=== PATIENT | female | born 1940 | race Caucasian/White ===

== ENCOUNTER → 2016-11-17 | Outpatient (CLI) | payer OTHER ==
[~2016-11-17] MED LIST: ALBU0.08 INH; ALBU18002 INH; ALBU1AER9 INH; AMLO-110 PO; ASPI81TA28 PO; ATV5X PO; BUSP-8 PO; CHOL20009 PO; CHOL4POW4 PO; CLON1TAB3 PO; CRG625 PO; CYAN10005 PO; DICY20TA10 PO; FLUO10CA48 PO; FLUT0.15 NAE; LDDP5 TD; LEVO1TAB33 PO; MAGN500T4 PO; MISCCAP80 PO; MOXI400T2 PO; ONDA4TAB46 PO; PANC6000 PO; PANT40TA PO; SPRIN/30 INH; SUCR1TAB PO; TIOTCAP INH; TRAM-10 PO; VITA400C15 PO; VITA400C3 PO; ZTHM250 PO
== END | disposition home or self-care (01) ==
LOC: C.RDSM 12:30
PROVIDERS: ATTEND Orthopaedic Surgery Sports Medicine
DX: R52 Pain, unspecified (principal)

== ENCOUNTER 2016-11-20 04:10 | Inpatient (IN) | payer OTHER ==
[~2016-11-20] VITALS: Ht 160 cm; Wt 40.3 kg
[2016-11-20] VITALS (10 sets, daily range): BP systolic 127–212; BP diastolic 65–101; PULSE 71–92; TEMP 36.5–36.6; O2SAT 91–98; Ht 160 cm; Wt 40.3 kg
[~2016-11-20 04:10] MED LIST changes: -ALBU18002 INH; -AMLO-110 PO; -ATV5X PO; -CHOL4POW4 PO; -LDDP5 TD; -SPRIN/30 INH; -SUCR1TAB PO; -VITA400C3 PO; -ZTHM250 PO
[2016-11-20] MEDS ORDERED: MoRPHine SULFATE 4 MG/ML 1 ML CARP\\VIAL IV STA (04:30)
[2016-11-20] MEDS ORDERED: ONDANSETRON INJ 2 MG/ML 2 ML VIAL IV STA (04:30)
--- NOTE | 2016-11-20 04:31 | EMERGENCY ROOM VISIT NOTE ---
History Report prepared by Ben: Latha Mosher Under the Supervision of: Dr. Mili Francisco D.O. First contact with patient: 04:14 Chief Complaint: RESPIRATORY PROBLEMS Stated Complaint: BREATHING DIFFICULTY History of Present Illness The patient is a 76 year old female who presents to the Emergency Room with complaints of worsening trouble breathing beginning this morning. The patient states that on Sunday she fell and bruised her ribs. She notes that the pain from the ribs is causing her to experience trouble breathing and shortness of breath. The patient went to bed early last night due to increased fatigue and woke up this morning with shortness of breath. She also notes she is experiencing a cough. The patient is on 1 liter of oxygen at home. Source of History: patient Onset: this morning Position: other (global) Quality: other (trouble breathing) Timing: worsening Associated Symptoms: + SOB, + chest pain (ribs), + cough Review of Systems See HPI for pertinent positives & negatives. A total of 10 systems reviewed and were otherwise negative. 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 Family History FH: cancer (pancreatic) FH: heart disease FH: lung disease (coal worker's pneumoconiosis) Stroke Social History Smoking Status: Former Smoker Alcohol Use: none Drug Use: none Marital Status: Housing Status: lives alone Occupation Status: retired Current/Historical Medications Scheduled Aspirin (Aspirin Ec), 81 MG PO DAILY Buspirone Hcl (Buspirone Hcl), 10 MG PO TID Carvedilol (Carvedilol), 1.5 TAB PO BID Cholecalciferol (Vitamin D), 1 TAB PO QAM Clonazepam (Klonopin), 1.5 MG PO HS Cyanocobalamin (Vitamin B-12), 1,000 MCG PO QAM Dicyclomine Hcl (Dicyclomine Hcl), 20 MG PO TID Fluoxetine (Prozac), 10 MG PO QAM Magnesium Oxide (Mg Supplement (Magnesium), 500 MG PO DAILY Pancrelipase (Lipase-Protease- (Creon), 2 CAP PO TIDM Pantoprazole Sodium (Protonix), 40 MG PO QAM Probiotic Product (Probiotic), 1 CAP PO TIDM Sucralfate (Sucralfate), 1 GM PO BID Tiotropium [place] (Spiriva Handihaler), 1 CAP INH QAM Tocopheryl Acet,Dl-Alpha (Vitamin E), 400 INTER.UNIT PO QAM Scheduled PRN Albuterol (Proair Hfa), 1-2 PUFFS INH Q4H PRN for Shortness of Breath Albuterol Soln (Proventil 0.083% 2.5MG/3ML), 2.5 MG INH Q4-6HRS PRN for Wheezing Fluticasone Propionate (Nasal) (Flonase Allergy Relief), 2 SPRAYS LAUREN BID PRN for NEEDED Ondansetron Hcl (Zofran), 4 MG PO QID PRN for Nausea Tramadol (Ultram), 50-100 MG PO Q6 hrs PRN for Pain Allergies Coded Allergies: Penicillins (Verified Allergy, Intermediate, RASH/NAUSEA, 10/29/16) Dexamethasone (Verified Allergy, Unknown, UNSURE OF REACTION, 10/29/16) Iodinated Diagnostic Agents (Verified Allergy, Unknown, SHAKY AND FEELS LIKE WILL PASS OUT, 10/29/16) Clindamycin (Verified Adverse Reaction, Mild, GI SYMPTOMS, 10/29/16) STOMACH CRAMPS-FLARE OF IBS Diazepam (Verified Adverse Reaction, Mild, FEELS MANIC WHEN TAKES, ) Erythromycin (Verified Adverse Reaction, Mild, GI SYMPTOMS, 10/29/16) Oxycodone (Verified Adverse Reaction, Mild, HALLUCINATE, 10/29/16) Tetracyclines (Verified Adverse Reaction, Mild, N/V, 10/29/16) Diphenhydramine (Verified Adverse Reaction, Unknown, HALLUCINATION, ) Lactose Intolerance (Verified Adverse Reaction, Unknown, IBS, 10/29/16) Levofloxacin (Verified Adverse Reaction, Unknown, HAS BLEEDING FROM IV SITE, PO OK, NOT IV, 10/29/16) PT STATED THAT SHE'S OKAY TO TAKE LEVAQUIN ORAL BUT NOT IV Sulfamethoxazole w/Trimethoprim (Unverified Adverse Reaction, Unknown, N/V , 10/29/16) Physical Exam Vital Signs Date Time Temp Pulse Resp B/P Pulse Ox O2 Delivery O2 Flow Rate FiO2 11/20/16 06:25 86 17 143/63 94 Nasal Cannula 2.0 11/20/16 04:27 95 Nasal Cannula 2.0 11/20/16 04:27 95 Nasal Cannula 2.0 11/20/16 04:26 89 Room Air 11/20/16 04:19 83 11/20/16 04:18 91 Room Air 11/20/16 04:18 36.8 83 20 230/123 89 Room Air 11/20/16 04:18 89 Room Air Physical Exam General: Appears cachectic and short of breath with communication. HEENT: Head - normocephalic and atraumatic Pupils are equal, round, and reactive to light. Extraocular eye muscles are intact, and sclera are anicteric. Nose - moist nasal mucosa without discharge. Mouth - moist buccal mucosa. Oropharynx is nonerythematous and there is no tonsillar exudate or edema noted. Neck: Supple; no JVD, nuchal rigidity, cervical lymphadenopathy, or auscultated bruits. Heart: Regular rate and rhythm. There is a normal S1 and S2 with no murmurs, clicks, or gallops appreciated. Lungs: Diminished breath sounds in all lung wilson. No wheezing. Chest: Reproducible with palpation to left lateral chest wall. Abdomen: Soft, completely nontender, nondistended, with good bowel sounds. There are no palpable pulsatile masses or hepatosplenomegaly. There is no guarding, rigidity, or rebound noted. Extremities: No evidence of cyanosis, clubbing, or edema. There are easily palpable peripheral pulses. Skin: warm and dry with good turgor and no rashes. Medical Decision & Procedures ER Provider Diagnostic Interpretation: X-ray results as stated below per interpretation by me and the radiologist: Chest: No left sided pulmonary consolidation, overlapping rib fracture of the 8th rib. CHEST 2 VIEWS ROUTINE CLINICAL HISTORY: Shortness of breath. Sided chest pain. COPD. COMPARISON STUDY: 10/29/2016 FINDINGS: The heart is normal in size. The patient is hyperinflated. There is underlying pulmonary emphysema. There is no focal pulmonary consolidation. There is a 23 mm left apical pneumothorax. No significant pleural effusions are visualized. There is no failure.[ IMPRESSION: 1. 23 mm left apical pneumothorax 2. Emphysema Electronically signed by: Jatinder Cage M.D. 11/20/2016 6:34 AM Dictated Date/Time: 11/20/2016 6:33 AM Laboratory Results 11/20/16 04:45 Red Blood Count 3.90, Mean Corpuscular Volume 87.7, Mean Corpuscular Hemoglobin 30.0, Mean Corpuscular Hemoglobin Concent 34.2, Mean Platelet Volume 8.6, Neutrophils (%) (Auto) 75.1, Lymphocytes (%) (Auto) 12.0, Monocytes (%) (Auto) 8.8, Eosinophils (%) (Auto) 3.7, Basophils (%) (Auto) 0.2, Neutrophils # (Auto) 6.22, Lymphocytes # (Auto) 1.00, Monocytes # (Auto) 0.73, Eosinophils # (Auto) 0.31, Basophils # (Auto) 0.02 11/20/16 04:45 Test 11/20/16 04:45 11/20/16 05:00 White Blood Count 8.30 K/uL (4.8-10.8) Red Blood Count 3.90 M/uL (4.2-5.4) Hemoglobin 11.7 g/dL (12.0-16.0) Hematocrit 34.2 % (37-47) Mean Corpuscular Volume 87.7 fL (80-100) Mean Corpuscular Hemoglobin 30.0 pg (25-34) Mean Corpuscular Hemoglobin Concent 34.2 g/dl (32-36) Platelet Count 237 K/uL (130-400) Mean Platelet Volume 8.6 fL (7.4-10.4) Neutrophils (%) (Auto) 75.1 % Lymphocytes (%) (Auto) 12.0 % Monocytes (%) (Auto) 8.8 % Eosinophils (%) (Auto) 3.7 % Basophils (%) (Auto) 0.2 % Neutrophils # (Auto) 6.22 K/uL (1.4-6.5) Lymphocytes # (Auto) 1.00 K/uL (1.2-3.4) Monocytes # (Auto) 0.73 K/uL (0.11-0.59) Eosinophils # (Auto) 0.31 K/uL (0-0.5) Basophils # (Auto) 0.02 K/uL (0-0.2) RDW Standard Deviation 43.0 fL (36.4-46.3) RDW Coefficient of Variation 13.4 % (11.5-14.5) Immature Granulocyte % (Auto) 0.2 % Immature Granulocyte # (Auto) 0.02 K/uL (0.00-0.02) Anion Gap 6.0 mmol/L (3-11) Est Creatinine Clear Calc Drug Dose 44.8 ml/min Estimated GFR () 98.7 Estimated GFR (Non- 85.2 BUN/Creatinine Ratio 15.8 (10-20) Calcium Level 9.1 mg/dl (8.5-10.1) Total Creatine Kinase 68 U/L (26-192) Creatine Kinase MB 1.0 ng/ml (0.5-3.6) Creatine Kinase MB Ratio 1.5 (0-3.0) Troponin I < 0.015 ng/ml (0-0.045) Pro-B-Type Natriuretic Peptide 527 pg/ml (0-900) Urine Color YELLOW Urine Appearance CLEAR (CLEAR) Urine pH 7.0 (4.5-7.5) Urine Specific [place] 1.005 (1.000-1.030) Urine Protein NEG (NEG) Urine Glucose (UA) NEG (NEG) Urine Ketones NEG (NEG) Urine Occult Blood TRACE (NEG) Urine Nitrite NEG (NEG) Urine Bilirubin NEG (NEG) Urine Urobilinogen NEG (NEG) Urine Leukocyte Esterase NEG (NEG) Urine WBC (Auto) 0 /hpf (0-5) Urine RBC (Auto) 0-4 /hpf (0-4) Urine Hyaline Casts (Auto) 0 /lpf (0-5) Urine Epithelial Cells (Auto) 0-5 /lpf (0-5) Urine Bacteria (Auto) NEG (NEG) Laboratory results per my review. Medications Administered Medications (Trade) Dose Ordered Sig/Ar Route Start Time Stop Time Status Last Admin Dose Admin Ondansetron HCl (Zofran Inj) 2 mg NOW STAT IV 11/20/16 04:30 11/20/16 04:31 DC 11/20/16 04:47 2 MG Morphine Sulfate (MoRPHine SULFATE INJ) 2 mg STK-MED ONCE .ROUTE 11/20/16 04:43 11/20/16 04:44 DC 11/20/16 04:47 2 MG Procedure Zofran Inj 2 mg IV Morphine Sulfate Inj 2 mg IV. ECG Indication: SOB/dyspnea Rate (beats per minute): 78 Rhythm: normal sinus Findings: PAC, ST depression (Inferior) ED Course 0417: Past medical records reviewed. The patient was evaluated in room A3. A complete history and physical exam was performed. Laboratory studies were drawn as above. A twelve-lead EKG was obtained as described above. The patient had a chest x-ray as described above. 0430: Zofran Inj 2 mg IV, Morphine Sulfate Inj 2 mg IV. 0657: I reevaluated the patient. She is feeling much better after the morphine. 719. Discussed the patient's case with Dr. Karla WAGONER. The patient will be evaluated for further management. Medical Decision The patient is a 76 year old female who presents to the ED with trouble breathing. Differential diagnosis includes COPD exacerbation, pneumonia, bronchitis, hypoxia, chest wall contusion. Lab findings include white blood cell count 8.3, hemoglobin 11.7, normal renal function, normal BNP and troponin , urine analysis shows no sign of infection. This is a 76-year-old female patient with COPD who presents to the emergency department with shortness of breath secondary to trauma to the left side of her ribs. The patient suffered a fall earlier this week. X-ray shows that she has an overlapping rib fracture and a small pneumothorax on the left. Her saturations remain stable. She is comfortable at this time. However, with her history of significant COPD, I felt she would require further inpatient hospital care to ensure that the pneumothorax is not enlarge. I discussed the case with the [facility] Hospitalist and they will evaluate for further medical management. Consults Time Called: 717 Consulting Physician: Dr. Karla WAGONER Returned Call: [phone] Discussed the patient's case with Dr. Karla WAGONER. The patient will be evaluated for further management. Impression Primary Impression: Pneumothorax Additional Impression: Left rib fracture Scribe Attestation The scribe's documentation has been prepared under my direction and personally reviewed by me in its entirety. I confirm that the note above accurately reflects all work, treatment, procedures, and medical decision making performed by me. Departure Information Dispostion Being Evaluated By Hospitalist Problem Qualifiers
[2016-11-20] MEDS ORDERED: MoRPHine SULFATE 2 MG/ML CARP ONE (04:43)
[2016-11-20 04:58] LABS: BASO % 0.2 %; BASO ABS # 0.02 K/uL (0-0.2); COMPLETE YES; EOS % 3.7 %; HEMATOCRIT 34.2 % (37-47); IG% 0.2 %; MEAN CELL VOLUME 87.7 fL (80-100); MEAN CORPUSCULAR HGB CONC 34.2 g/dl (32-36); MEAN PLATELET VOLUME 8.6 fL (7.4-10.4); MONO % 8.8 %; NEUT % 75.1 %; PLATELET COUNT 237 K/uL (130-400)
[2016-11-20 05:19] LABS: BLOOD UREA NITROGEN 11 mg/dl (7-18); BUN/CREATININE RATIO 15.8 (10-20); CALCIUM 9.1 mg/dl (8.5-10.1); CARBON DIOXIDE 37 mmol/L (21-32); CHLORIDE 94 mmol/L (98-107); CREATININE 0.69 mg/dl (0.60-1.20); GLUCOSE 107 mg/dl (70-99); POTASSIUM 4.1 mmol/L (3.5-5.1); SODIUM 137 mmol/L (136-145)
[2016-11-20 05:24] LABS: CKMB/CK RATIO 1.5 (0-3.0)
[2016-11-20 05:27] LABS: URINE APPEARANCE CLEAR (CLEAR); URINE BILIRUBIN NEG (NEG); URINE COLOR YELLOW; URINE EPITHELIAL CELL AUTO 0-5 /lpf (0-5); URINE NITRITE NEG (NEG); URINE SPECIFIC GRAVITY 1.005 (1.000-1.030); UROBILINOGEN NEG (NEG)
[2016-11-20 05:28] LABS: MANUAL MICROSCOPIC REQUIRED? NO; REVIEW REQ? NO
[2016-11-20] MEDS ORDERED: SUCR1TAB PO ×2 (05:40)
--- NOTE | 2016-11-20 06:36 | DIAGNOSTIC IMAGING REPORT ---
ADDENDUM Addendum: Also evident is a fracture of the left 10th posterolateral rib. Electronically signed by: Jatinder Cage M.D. 11/20/2016 6:48 AM Dictated Date/Time: 11/20/2016 6:47 AM ORIGINAL REPORT CHEST 2 VIEWS ROUTINE CLINICAL HISTORY: Shortness of breath. Sided chest pain. COPD. COMPARISON STUDY: 10/29/2016 FINDINGS: The heart is normal in size. The patient is hyperinflated. There is underlying pulmonary emphysema. There is no focal pulmonary consolidation. There is a 23 mm left apical pneumothorax. No significant pleural effusions are visualized. There is no failure.[ IMPRESSION: 1. 23 mm left apical pneumothorax 2. Emphysema Electronically signed by: Jatinder Cage M.D. 11/20/2016 6:34 AM Dictated Date/Time: 11/20/2016 6:33 AM
[2016-11-20] MEDS ORDERED: ACETAMINOPHEN 325 MG TAB PO STA (07:34)
[2016-11-20] MEDS ORDERED: MAGNESIUM HYDROXIDE SUSP 30 ML UDC PO PRN (08:15)
[2016-11-20] MEDS ORDERED: LORAZEPAM 2 MG/ML 1 ML VIAL IV PRN (08:15)
[2016-11-20] MEDS ORDERED: HEPARIN SOD 5000 UNIT/0.5 ML CARP SQ SCH (08:15)
[2016-11-20] MEDS ORDERED: KETOROLAC TROMETHAMINE 15 MG/ML VIAL IM PRN (08:15)
[2016-11-20] MEDS ORDERED: ACETAMINOPHEN 325 MG TAB PO PRN (08:15)
[2016-11-20] MEDS ORDERED: ALUMINUM/MAGNESIUM/SIMETH (MAALOX MAX) 30 ML UDC PO PRN (08:15)
[2016-11-20] MEDS ORDERED: POLYETHYLENE (MIRALAX) 17 GM PACK PO PRN (08:15)
[2016-11-20] MEDS ORDERED: DICYCLOMINE HCL 20 MG TAB PO SCH (09:00)
--- NOTE | 2016-11-20 09:12 | History and Physical ---
History & Physical Date & Time of Service: Nov 20, 2016 at 08:38 Chief Complaint: Breathing Difficulty Primary Care Physician: Ryan Lucia M.D. History of Present Illness Source: patient Patient is a pleasant 76 y/o male, with PMHx of COPD, HTN, anxiety, depression, and IBS, who presented to the ED because of elevated BP and left-sided rib pain. On 11/16, patient was in her bedroom slippers and slipped on her carpet. She fell on her left shoulder/side. On Sunday, 11/17, patient was pulling a plug out of the wall and flew backwards, landing on her left side again. She went to see Dr. Du on Sunday, who told her she had bruised ribs. On Sunday, 11/20, patient took her blood pressure at home which read >200/100. Due to her increased left-sided pain and blood pressure reading, she came to the ED. Patient was admitted on 09/20 due to COPD exacerbation and elevated BP. At that time, her BP was felt to be anxiety related, and no changes in her medications were made. Currently, pain in mild with 4 mg IV Morphine given in the ED. She states she feels extremely anxious, like she is going to have a panic attack, with everything that is going on. She currently lives at home alone, with the help of her neighbor. Her neighbor has been less helpful lately. She states she has not been eating adequately because she has no food in the home. Patient denies any fever, chills, sweats, lightheadedness, dizziness, vision changes, CP , palpitations, edema, wheezing, cough, abdominal pain, nausea, vomiting, diarrhea, urinary symptoms, melena, numbness/tingling, active bleeding, or new skin discoloration/changes. Past Medical/Surgical History 1. Benign hypertension 2. COPD (chronic obstructive pulmonary disease) 3. Anxiety 4. Depression 5. IBS 6. Carcinoma of breast Surgical hx: 1. Hysterectomy 2. Mastectomy 3. Cholecystectomy Family History FH: cancer (pancreatic) FH: heart disease FH: lung disease (coal worker's pneumoconiosis) Stroke Social History Smoking Status: Former Smoker Drug Use: none Marital Status: Housing status: lives alone Occupational Status: retired Immunizations History of Influenza Vaccine: Yes Influenza Vaccine Date: Oct 13, 2013 History of Tetanus Vaccine?: Yes Tetanus Immunization Date: Nov 03, 2008 History of Pneumococcal: Yes Pneumococcal Date: Jul 04, 2013 History of Hepatitis B Vaccine: No Multi-Drug Resistant Organisms History of MDRO: No Allergies Coded Allergies: Penicillins (Verified Allergy, Intermediate, RASH/NAUSEA, 11/26/16) Dexamethasone (Verified Allergy, Unknown, UNSURE OF REACTION, 11/26/16) Iodinated Diagnostic Agents (Verified Allergy, Unknown, SHAKY AND FEELS LIKE WILL PASS OUT, 11/26/16) Morphine (Verified Adverse Reaction, Severe, vomitting, 11/26/16) Clindamycin (Verified Adverse Reaction, Mild, GI SYMPTOMS, 11/26/16) STOMACH CRAMPS-FLARE OF IBS Diazepam (Verified Adverse Reaction, Mild, FEELS MANIC WHEN TAKES, 11/26/16 ) Erythromycin (Verified Adverse Reaction, Mild, GI SYMPTOMS, 11/26/16) Oxycodone (Verified Adverse Reaction, Mild, HALLUCINATE, 11/26/16) Tetracyclines (Verified Adverse Reaction, Mild, N/V, 11/26/16) Diphenhydramine (Verified Adverse Reaction, Unknown, HALLUCINATION, ) Lactose Intolerance (Verified Adverse Reaction, Unknown, IBS, 11/26/16) Levofloxacin (Verified Adverse Reaction, Unknown, HAS BLEEDING FROM IV SITE, PO OK, NOT IV, 11/26/16) PT STATED THAT SHE'S OKAY TO TAKE LEVAQUIN ORAL BUT NOT IV Sulfamethoxazole w/Trimethoprim (Unverified Adverse Reaction, Unknown, N/V , 11/26/16) Home Medications Scheduled Aspirin (Aspirin Ec), 81 MG PO DAILY Buspirone Hcl (Buspirone Hcl), 10 MG PO TID Carvedilol (Carvedilol), 1.5 TAB PO BID Cholecalciferol (Vitamin D), 1 TAB PO QAM Clonazepam (Klonopin), 1.5 MG PO HS Cyanocobalamin (Vitamin B-12), 1,000 MCG PO QAM Dicyclomine Hcl (Dicyclomine Hcl), 20 MG PO TID Fluoxetine (Prozac), 10 MG PO QAM Lidocaine (Lidocaine), 1 PATCH TD QAM Magnesium Oxide (Mg Supplement (Magnesium), 500 MG PO DAILY Pancrelipase (Lipase-Protease- (Creon), 2 CAP PO TIDM Pantoprazole Sodium (Protonix), 40 MG PO QAM Probiotic Product (Probiotic), 1 CAP PO TIDM Sucralfate (Sucralfate), 1 GM PO BID Tiotropium [place] (Spiriva Handihaler), 1 CAP INH QAM Tocopheryl Acet,Dl-Alpha (Vitamin E), 400 INTER.UNIT PO QAM Scheduled PRN Albuterol (Proair Hfa), 1-2 PUFFS INH Q4H PRN for Shortness of Breath Albuterol Soln (Proventil 0.083% 2.5MG/3ML), 2.5 MG INH Q4-6HRS PRN for Wheezing Fluticasone Propionate (Nasal) (Flonase Allergy Relief), 2 SPRAYS LAUREN BID PRN for NEEDED Ondansetron Hcl (Zofran), 4 MG PO QID PRN for Nausea Tramadol (Ultram), 50-100 MG PO Q6 hrs PRN for Pain Physical Exam Vital Signs Date Time Temp Pulse Resp B/P Pulse Ox O2 Delivery O2 Flow Rate FiO2 11/20/16 08:17 84 11/20/16 06:25 86 17 143/63 94 Nasal Cannula 2.0 11/20/16 04:27 95 Nasal Cannula 2.0 11/20/16 04:27 95 Nasal Cannula 2.0 11/20/16 04:26 89 Room Air 11/20/16 04:19 83 11/20/16 04:18 91 Room Air 11/20/16 04:18 36.8 83 20 230/123 89 Room Air 11/20/16 04:18 89 Room Air General Appearance: no apparent distress, + thin Head: normocephalic, atraumatic Eyes: PERRL ENT: hearing grossly normal Neck: supple Respiratory/Chest: no respiratory distress, no accessory muscle use, + decreased breath sounds Cardiovascular: regular rate, rhythm, no edema, normal peripheral pulses Abdomen/GI: normal bowel sounds, non tender, soft Back: normal inspection Extremities/Musculoskelatal: no calf tenderness, no pedal edema Neurologic/Psych: alert, oriented x 3, + pertinent finding (anxious ) Skin: normal color, warm/dry, no rash Diagnostics Laboratory Results Results Past 24 Hours Test 11/20/16 04:45 11/20/16 05:00 Range/Units White Blood Count 8.30 4.8-10.8 K/uL Red Blood Count 3.90 4.2-5.4 M/uL Hemoglobin 11.7 12.0-16.0 g/dL Hematocrit 34.2 37-47 % Mean Corpuscular Volume 87.7 80-100 fL Mean Corpuscular Hemoglobin 30.0 25-34 pg Mean Corpuscular Hemoglobin Concent 34.2 32-36 g/dl Platelet Count 237 130-400 K/uL Mean Platelet Volume 8.6 7.4-10.4 fL Neutrophils (%) (Auto) 75.1 % Lymphocytes (%) (Auto) 12.0 % Monocytes (%) (Auto) 8.8 % Eosinophils (%) (Auto) 3.7 % Basophils (%) (Auto) 0.2 % Neutrophils # (Auto) 6.22 1.4-6.5 K/uL Lymphocytes # (Auto) 1.00 1.2-3.4 K/uL Monocytes # (Auto) 0.73 0.11-0.59 K/uL Eosinophils # (Auto) 0.31 0-0.5 K/uL Basophils # (Auto) 0.02 0-0.2 K/uL RDW Standard Deviation 43.0 36.4-46.3 fL RDW Coefficient of Variation 13.4 11.5-14.5 % Immature Granulocyte % (Auto) 0.2 % Immature Granulocyte # (Auto) 0.02 0.00-0.02 K/uL Sodium Level 137 136-145 mmol/L Potassium Level 4.1 3.5-5.1 mmol/L Chloride Level 94 98-107 mmol/L Carbon Dioxide Level 37 21-32 mmol/L Anion Gap 6.0 3-11 mmol/L Blood Urea Nitrogen 11 7-18 mg/dl Creatinine 0.69 0.60-1.20 mg/dl Est Creatinine Clear Calc Drug Dose 44.8 ml/min Estimated GFR () 98.7 Estimated GFR (Non- 85.2 BUN/Creatinine Ratio 15.8 10-20 Random Glucose 107 70-99 mg/dl Calcium Level 9.1 8.5-10.1 mg/dl Total Creatine Kinase 68 26-192 U/L Creatine Kinase MB 1.0 0.5-3.6 ng/ml Creatine Kinase MB Ratio 1.5 0-3.0 Troponin I < 0.015 0-0.045 ng/ml Pro-B-Type Natriuretic Peptide 527 0-900 pg/ml Urine Color YELLOW Urine Appearance CLEAR CLEAR Urine pH 7.0 4.5-7.5 Urine Specific [place] 1.005 1.000-1.030 Urine Protein NEG NEG Urine Glucose (UA) NEG NEG Urine Ketones NEG NEG Urine Occult Blood TRACE NEG Urine Nitrite NEG NEG Urine Bilirubin NEG NEG Urine Urobilinogen NEG NEG Urine Leukocyte Esterase NEG NEG Urine WBC (Auto) 0 0-5 /hpf Urine RBC (Auto) 0-4 0-4 /hpf Urine Hyaline Casts (Auto) 0 0-5 /lpf Urine Epithelial Cells (Auto) 0-5 0-5 /lpf Urine Bacteria (Auto) NEG NEG Diagnostic Radiology CXR ADDENDUM Addendum: Also evident is a fracture of the left 10th posterolateral rib. Electronically signed by: Jatinder Cage M.D. 11/20/2016 6:48 AM Dictated Date/Time: 11/20/2016 6:47 AM ORIGINAL REPORT CHEST 2 VIEWS ROUTINE CLINICAL HISTORY: Shortness of breath. Sided chest pain. COPD. COMPARISON STUDY: 10/29/2016 FINDINGS: The heart is normal in size. The patient is hyperinflated. There is underlying pulmonary emphysema. There is no focal pulmonary consolidation. There is a 23 mm left apical pneumothorax. No significant pleural effusions are visualized. There is no failure.[ IMPRESSION: 1. 23 mm left apical pneumothorax 2. Emphysema Electronically signed by: Jatinder Cage M.D. 11/20/2016 6:34 AM Dictated Date/Time: 11/20/2016 6:33 AM The status of this report is Signed. Draft = Not yet reviewed or approved by Radiologist. Signed = Reviewed and approved by Radiologist. EKG [place] MAY ID:[id number] 20-NOV-2016 04:34:23 [facility] Sinus rhythm with Premature atrial complexes Possible Left atrial enlargement Septal infarct (cited on or before 29-OCT-2016) Abnormal ECG When compared with ECG of 29-OCT-2016 17:10, Premature atrial complexes are now Present 25mm/s 10mm/mV 150Hz 8.0 SP2 12SL 241 [place]: 9 Referred by: Gumaro Neumann Unconfirmed Vent. rate 78 BPM PA interval 156 ms QRS duration 62 ms QT/QTc 366/417 ms P-R-T axes 79 79 70 1940 (76 yr) Female 32in 1lb Room:3 Loc:15 Family Educator:Rachelle Guevara ind: Impression Assessment and Plan 76 y/o female, with PMHx of COPD, anxiety/depression, HTN, and IBS, who presented to the ED because of elevated BP and left-sided rib pain from a fall on 11/16. Left 10th rib fracture and 22 mm left apical pneumothorax evident on CXR: -Admit med/surg -O2 protocol. At admission, patient was requiring 2L O2- she only wears 1L O2 at night at home -Repeat CXR in 6 hrs -Consult pulmonary, appreciate recommendations -Pain management with IV Toradol 15 mg q6hrs PRN, Tramadol 50 mg PO q6 hrs PRN, Tylenol 650 mg q4 hrs PRN, and Lidoderm patch -Follow PRP COPD: -Ventolin 2 puffs INH -Continue Spiriva 1 cap PO QAM -Follows with Mateo Mcdonnell PA-C HTN: -Continue Carvedilol 9.375 mg PO BID -Hydralazine 10 mg IV PRN for sbp >170 or dbp >100 Anxiety/depression: -Continue Buspirone 10 mg PO TID -Continue Klonopin 1.5 mg PO HS -Continue Prozac 10 mg PO QAM -Ativan 1 mg IV q6 hrs PRN for anxiety Vitamin D deficiency: -Continue Vitamin D supplement -Vitamin D level of 35.0 checked on 07/2016 Anemia: -hgb stable -Continue Vitamin B12 supplement -Follow CBC IBS: -Continue Creon 2 cap PO TID -Continue Protonix 40 mg PO QAM -Continue Probiotic 1 cap PO TID -Continue Sucralfate 1 gm PO BID -Continue Bentyl 20 mg PO TID Hypomagnesemia: -Continue MagOx 500 mg PO daily -Check mag level- patient has not been taking lately because she does not have the medication at home DVT prophylaxis: -Hold on chemical therapy, pending pulmonary consult -PARMINDER and SCDs Deconditioning: -Patient states she lives alone, with the help of her neighbor (who has been less and less of help lately). -Consult social worker health services -Consult PT/OT Code Status: -LEVEL V, DNR Level of Care Med/Surg Resuscitation Status DO NOT RESUSCITATE VTE Prophylaxis VTE Risk Assessment Done? Y/N: Yes Risk Level: Low Given or contraindicated: Usman Ponce, SCD's Note Patient was seen and examined. Case was discussed with Barbara Coates PA-C. I agree with her above note as written. Patient presented with rib pain after a fall a few days prior to admission. Imaging showed a small pneumothorax. On exam, she is very anxious. Lungs are diminished but equal, no respiratory distress. Will monitor serial CXRs. Pulm to be consulted.
[2016-11-20] MEDS ORDERED: IV FLUIDS COMPLETED PRN (09:15)
[2016-11-20] MEDS: ONDANSETRON INJ 2 MG/ML 2 ML VIAL IV PRN (10:51)
[2016-11-20] MEDS: HydrALAZINE HCL 20 MG/ML VIAL IV. PRN ×2 (10:56→17:07)
[2016-11-20] MEDS: LIDODERM (LIDOCAINE) PATCH 5% TD SCH (10:58)
[2016-11-20] MEDS: TRAMADOL HCL 50 MG TAB PO PRN ×2 (10:59→21:25)
[2016-11-20] MEDS: ASPIRIN 81 MG ECTAB PO SCH (11:01)
[2016-11-20] MEDS: TIOTROPIUM BROMIDE 5 PUFF/90 MCG INH INH SCH (11:01)
[2016-11-20] MEDS: SUCRALFATE 1 GM TAB PO SCH ×3 (11:02→21:26)
[2016-11-20] MEDS: MAGNESIUM OXIDE 400 MG TAB PO SCH (11:02)
[2016-11-20] MEDS: CARVEDILOL 6.25 MG TAB PO SCH ×2 (11:03→21:23)
[2016-11-20] MEDS: LACTOBACILLUS ACIDOPHILUS (FLORANEX) TAB PO SCH ×3 (11:03→18:24)
[2016-11-20] MEDS: CYANOCOBALAMIN 500 MCG TAB (VIT B-12) PO SCH (11:09)
[2016-11-20] MEDS: CHOLECALCIFEROL 1000 INTER.UNIT TAB PO SCH (11:14)
[2016-11-20] MEDS: TOCOPHERYL, DL-ALPHA 400 INTER.UNIT CAP PO SCH (11:14)
[2016-11-20] MEDS: PANTOprazole SOD 40 MG TAB PO SCH (11:15)
--- NOTE | 2016-11-20 11:28 | DIAGNOSTIC IMAGING REPORT ---
SINGLE VIEW CHEST CLINICAL HISTORY: Follow-up left apical pneumothorax. COPD. FINDINGS: An AP, portable, upright chest radiograph is compared to study performed earlier the same day 11/20/2016 and correlated with chest CT dated 10/19/2015. The examination is degraded by portable technique and patient rotation. The cardiomediastinal silhouette is normal for projection. There is atherosclerotic calcification of the thoracic aorta. The pulmonary vasculature is noncongested. Enlargement of the central pulmonary arteries is indicative of pulmonary artery hypertension. Advanced emphysema is unchanged. A small left apical pneumothorax is unchanged from earlier today with approximately 2.3 cm of pleural separation. No airspace consolidation is identified typical for pneumonia and there is no large pleural effusion. Extensive chronic interstitial thickening and mild nodularity is unchanged. No right-sided pneumothorax is seen. The skeletal structures are osteopenic. The bony thorax is grossly intact. IMPRESSION: 1. A small left apical pneumothorax has not significantly changed from earlier today. 2. Advanced emphysema. 3. No airspace consolidation or large pleural effusion is identified. Electronically signed by: Fredy Coffman M.D. 11/20/2016 11:26 AM Dictated Date/Time: 11/20/2016 11:23 AM
[2016-11-20] MEDS ORDERED: NURSING VERBAL MED ORDER ONE (11:30)
[2016-11-20] MEDS: DICYCLOMINE HCL 20 MG TAB PO SCH ×2 (12:03→18:23)
[2016-11-20] MEDS: ALBUTEROL HFA 8 GM INHALER INH PRN (13:15)
[2016-11-20] MEDS ORDERED: PROMETHAZINE HCL INJ 12.5 MG in SODIUM CHLORIDE 0.9% 50ML 50 ML IV PRN (14:00)
[2016-11-20] MEDS: FLUOXETINE HCL 10 MG CAP PO SCH (14:26)
--- NOTE | 2016-11-20 14:54 | Pre-Operative Consultation ---
History General Date of Service: Nov 20, 2016. HPI HPI: The patient is a 76 year old female being seen for a stable left pneumothorax of 2cm. She has a PMHx of COPD, HTN, anxiety, depression, and IBS, who presented to the ED because of elevated BP and left-sided rib pain. On 11/16, patient fell on her left shoulder/side. She began to have increased left-sided pain and was admitted on 09/20 due to COPD exacerbation and elevated BP. She currently has mild pain and no SOB Patient denies any fever, chills, sweats, lightheadedness, dizziness, vision changes, CP, palpitations, edema, wheezing, cough, abdominal pain, nausea, vomiting, diarrhea, urinary symptoms, melena, numbness/tingling, active bleeding, or new skin discoloration/changes. An CXR done today and repeated in the afternoon shows a stable 2cm PTX on the left with minimal symptoms at this point. Historian: patient Risk Assessment Daily beta gem use?: No Problem List Medical Problems: (1) Acute bronchiolitis Status: Acute (2) Acute electrocardiogram changes Status: Acute (3) Headache Status: Acute (4) Left rib fracture Status: Acute (5) Pneumothorax Status: Acute (6) Right-sided chest pain Status: Acute (7) UTI (urinary tract infection) Status: Acute Medical & Surgical History Past Medical History: anxiety, cancer - breast, COPD, depression, GERD, hypertension, other (IBS) Past Surgical History: cholecystectomy, hysterectomy, mastectomy Family History Family History: cancer, heart disease, lung disease, other (CVA) Social History Hx Tobacco Use In Past Year?: No Smoking Status: Former Smoker Alcohol: none Drug Use: none Marital status: Housing status: lives alone Occupation status: retired Immunizations Have You Had Influenza Vaccine: Yes Date Of Influenza Vaccine: Oct 13, 2013 Have You Had Tetanus Vaccine: Yes Date Of Tetanus Immunization: Nov 03, 2008 History of Pneumococcal: Yes Date of Pneumococcal Vaccine: Jul 04, 2013 History Hepatitis B Vaccine: No Allergies Allergies: Coded Allergies: Penicillins (Verified Allergy, Intermediate, RASH/NAUSEA, 10/29/16) Dexamethasone (Verified Allergy, Unknown, UNSURE OF REACTION, 10/29/16) Iodinated Diagnostic Agents (Verified Allergy, Unknown, SHAKY AND FEELS LIKE WILL PASS OUT, 10/29/16) Morphine (Verified Adverse Reaction, Severe, vomitting, 11/20/16) Clindamycin (Verified Adverse Reaction, Mild, GI SYMPTOMS, 10/29/16) STOMACH CRAMPS-FLARE OF IBS Diazepam (Verified Adverse Reaction, Mild, FEELS MANIC WHEN TAKES, ) Erythromycin (Verified Adverse Reaction, Mild, GI SYMPTOMS, 10/29/16) Oxycodone (Verified Adverse Reaction, Mild, HALLUCINATE, 10/29/16) Tetracyclines (Verified Adverse Reaction, Mild, N/V, 10/29/16) Diphenhydramine (Verified Adverse Reaction, Unknown, HALLUCINATION, ) Lactose Intolerance (Verified Adverse Reaction, Unknown, IBS, 10/29/16) Levofloxacin (Verified Adverse Reaction, Unknown, HAS BLEEDING FROM IV SITE, PO OK, NOT IV, 10/29/16) PT STATED THAT SHE'S OKAY TO TAKE LEVAQUIN ORAL BUT NOT IV Sulfamethoxazole w/Trimethoprim (Unverified Adverse Reaction, Unknown, N/V , 10/29/16) Medications Current Inpatient Medications Current Inpatient Medications Medications (Trade) Dose Ordered Sig/Ar Route Start Time Stop Time Status Last Admin Dose Admin Acetaminophen (Tylenol Tab) 650 mg Q4H PRN PO 11/20/16 08:15 12/20/16 08:14 Al Hydrox/Mg Hydrox/Simethicone (Maalox Max Susp) 15 ml Q4H PRN PO 11/20/16 08:15 12/20/16 08:14 Magnesium Hydroxide (Milk Of Magnesia Susp) 30 ml Q6H PRN PO 11/20/16 08:15 12/20/16 08:14 Polyethylene (Miralax Powder Packet) 17 gm DAILY PRN PO 11/20/16 08:15 12/20/16 08:14 Ondansetron HCl (Zofran Inj) 4 mg Q6H PRN IV 11/20/16 08:15 12/20/16 08:14 11/20/16 10:51 4 MG Lidocaine (Lidoderm Patch 5%) 1 patch QAM TD 11/20/16 09:00 12/20/16 08:59 11/20/16 10:58 1 PATCH Miscellaneous (Remove Lidoderm Patch) 1 ea DAILY@21 N/A 11/20/16 21:00 12/20/16 20:59 Albuterol (Ventolin Hfa Inhaler) 2 puffs Q4H PRN INH 11/20/16 08:15 12/20/16 08:14 11/20/16 13:15 2 PUFFS Albuterol Sulfate (Ventolin 0.083% 2.5MG/3ML Neb) 2.5 mg Q4H PRN INH 11/20/16 08:15 12/20/16 08:14 Aspirin (Ecotrin Tab) 81 mg DAILY PO 11/20/16 09:00 12/20/16 08:59 11/20/16 11:01 81 MG Carvedilol (Coreg Tab) 9.375 mg BID PO 11/20/16 09:00 12/20/16 08:59 11/20/16 11:03 12.5 MG Clonazepam (Klonopin Tab) 1.5 mg HS PO 11/20/16 21:00 12/20/16 20:59 Cyanocobalamin (Vitamin B-12 Tab) 1,000 mcg QAM PO 11/20/16 09:00 12/20/16 08:59 11/20/16 11:09 1,000 MCG Fluoxetine HCl (Prozac Cap) 10 mg QAM PO 11/20/16 12:00 12/20/16 11:59 Pantoprazole Sodium (Protonix Tab) 40 mg QAM PO 11/20/16 09:00 12/20/16 08:59 11/20/16 11:15 40 MG Sucralfate (Carafate Tab) 1 gm BID PO 11/20/16 09:00 12/20/16 08:59 Tiotropium Rudd (Spiriva Handihaler Inhaler) 1 puff QAM INH 11/20/16 09:00 12/20/16 08:59 11/20/16 11:01 1 PUFF cr-Llasm-Sljsyhifpr Acetate (Vitamin E Cap) 400 interunit QAM PO 11/20/16 09:00 12/20/16 08:59 Tramadol HCl (Ultram Tab) 50 mg Q6H PRN PO 11/20/16 08:15 12/20/16 08:14 11/20/16 10:59 50 MG Buspirone HCl (Buspar Tab) 10 mg TID PO 11/20/16 10:30 12/20/16 10:29 11/20/16 11:15 10 MG Cholecalciferol (Vitamin D Tab) 2,000 inter.unit QAM PO 11/20/16 10:15 12/20/16 10:14 Magnesium Oxide (Mag-Ox Tab) 400 mg DAILY PO 11/20/16 10:30 12/20/16 10:29 Miscellaneous Information (Order Awaiting Action) 1 ea QS N/A 11/20/16 16:00 12/20/16 15:59 Lactobacillus Acidophilus (Floranex Tab) 4 tab TIDM PO 11/20/16 12:30 12/20/16 12:29 Lorazepam (Ativan Inj) 1 mg Q6H PRN IV 11/20/16 08:15 12/20/16 08:14 11/20/16 09:08 1 MG Hydralazine HCl 10 mg 10 mg Q6H PRN IV. 11/20/16 08:15 12/20/16 08:14 11/20/16 10:56 10 MG Lorazepam/Syringe (Ativan Inj/ Syringe) 1 ml @ 1 mls/min Q6H PRN IV 11/20/16 09:15 12/20/16 09:14 Miscellaneous (Iv Fluids Completed) 1 ea PRN PRN N/A 11/20/16 09:15 11/20/17 09:14 Ketorolac Tromethamine (Toradol Inj) 15 mg Q6H PRN IV 11/20/16 11:15 11/25/16 11:14 Dicyclomine HCl 20 mg 20 mg TIDM PO 11/20/16 12:30 12/20/16 12:29 11/20/16 12:03 20 MG Promethazine HCl/ Sodium Chloride (Phenergan Inj/ Nss 50ml) 50.5 ml @ 204 mls/hr Q6H PRN IV 11/20/16 14:00 12/20/16 13:59 Review of Systems Review of Systems Constitutional: denies chills, denies diaphoresis, denies fever, denies weakness Eyes: reports: no symptoms ENT: reports: no symptoms reported Cardiovascular: reports: chest pain, denies: chest pressure, chest tightness, diaphoresis, palpitations Respiratory: denies: cough, orthopnea, short of breath, stridor, wheezing Gastrointestinal: denies abdominal pain, denies constipation, denies diarrhea, denies nausea, denies vomiting Genitourinary - Female: reports: no symptoms Musculoskeletal: denies back pain, denies joint pain, denies joint swelling, denies muscle stiffness, denies neck pain Integumentary: denies change in color, denies change in hair/nails, denies dryness, denies lumps, denies rash Neurologic: reports: general weakness, denies: focal weakness Psychiatric: reports: anxiety, depression Endocrine: denies: cold intolerance, goiter, hair changes, heat intolerance, polyuria, skin changes Hematologic / Lymphatic: denies: anemia, easy bleeding, easy bruising Physical Exam Physical Exam General Appearance: + WD/WN Ears, Nose, Throat: + normal ENT inspection Neck: No abnormal inspection, No lymphadenophy, No stiffness, No tenderness, No tracheal deviation Respiratory: + decreased breath sounds, + other (mastectomy), No accessory muscle use, No chest tenderness, No rales, No rhonchi, No stridor, No wheezing Cardiovascular: No diastolic murmur, No gallop/S3, No gallop/S4, No systolic murmur, No tachycardia Abdomen: No abnormal bowel sounds, No distension, No guarding, No hernia, No organomegaly, No tenderness Extremities: No calf tenderness, No deformity, No inflammation, No swelling Neurologic/Psychiatric: No disorientation, No motor deficit/weakness, No sensory deficit Skin Characteristics: No abnormal color, No diaphoresis, No jaundice, No pallor , No rash Lymphatic: No abnormal adenopathy Diagnostics Labs Labs Results Past 24 Hours Test 11/20/16 04:45 11/20/16 05:00 Range/Units White Blood Count 8.30 4.8-10.8 K/uL Red Blood Count 3.90 4.2-5.4 M/uL Hemoglobin 11.7 12.0-16.0 g/dL Hematocrit 34.2 37-47 % Mean Corpuscular Volume 87.7 80-100 fL Mean Corpuscular Hemoglobin 30.0 25-34 pg Mean Corpuscular Hemoglobin Concent 34.2 32-36 g/dl Platelet Count 237 130-400 K/uL Mean Platelet Volume 8.6 7.4-10.4 fL Neutrophils (%) (Auto) 75.1 % Lymphocytes (%) (Auto) 12.0 % Monocytes (%) (Auto) 8.8 % Eosinophils (%) (Auto) 3.7 % Basophils (%) (Auto) 0.2 % Neutrophils # (Auto) 6.22 1.4-6.5 K/uL Lymphocytes # (Auto) 1.00 1.2-3.4 K/uL Monocytes # (Auto) 0.73 0.11-0.59 K/uL Eosinophils # (Auto) 0.31 0-0.5 K/uL Basophils # (Auto) 0.02 0-0.2 K/uL RDW Standard Deviation 43.0 36.4-46.3 fL RDW Coefficient of Variation 13.4 11.5-14.5 % Immature Granulocyte % (Auto) 0.2 % Immature Granulocyte # (Auto) 0.02 0.00-0.02 K/uL Sodium Level 137 136-145 mmol/L Potassium Level 4.1 3.5-5.1 mmol/L Chloride Level 94 98-107 mmol/L Carbon Dioxide Level 37 21-32 mmol/L Anion Gap 6.0 3-11 mmol/L Blood Urea Nitrogen 11 7-18 mg/dl Creatinine 0.69 0.60-1.20 mg/dl Est Creatinine Clear Calc Drug Dose 44.8 ml/min Estimated GFR () 98.7 Estimated GFR (Non- 85.2 BUN/Creatinine Ratio 15.8 10-20 Random Glucose 107 70-99 mg/dl Calcium Level 9.1 8.5-10.1 mg/dl Total Creatine Kinase 68 26-192 U/L Creatine Kinase MB 1.0 0.5-3.6 ng/ml Creatine Kinase MB Ratio 1.5 0-3.0 Troponin I < 0.015 0-0.045 ng/ml Pro-B-Type Natriuretic Peptide 527 0-900 pg/ml Urine Color YELLOW Urine Appearance CLEAR CLEAR Urine pH 7.0 4.5-7.5 Urine Specific [place] 1.005 1.000-1.030 Urine Protein NEG NEG Urine Glucose (UA) NEG NEG Urine Ketones NEG NEG Urine Occult Blood TRACE NEG Urine Nitrite NEG NEG Urine Bilirubin NEG NEG Urine Urobilinogen NEG NEG Urine Leukocyte Esterase NEG NEG Urine WBC (Auto) 0 0-5 /hpf Urine RBC (Auto) 0-4 0-4 /hpf Urine Hyaline Casts (Auto) 0 0-5 /lpf Urine Epithelial Cells (Auto) 0-5 0-5 /lpf Urine Bacteria (Auto) NEG NEG Diagnostic Radiology Diagnostic Radiology SINGLE VIEW CHEST CLINICAL HISTORY: Follow-up left apical pneumothorax. COPD. FINDINGS: An AP, portable, upright chest radiograph is compared to study performed earlier the same day 11/20/2016 and correlated with chest CT dated 10/19/2015. The examination is degraded by portable technique and patient rotation. The cardiomediastinal silhouette is normal for projection. There is atherosclerotic calcification of the thoracic aorta. The pulmonary vasculature is noncongested. Enlargement of the central pulmonary arteries is indicative of pulmonary artery hypertension. Advanced emphysema is unchanged. A small left apical pneumothorax is unchanged from earlier today with approximately 2.3 cm of pleural separation. No airspace consolidation is identified typical for pneumonia and there is no large pleural effusion. Extensive chronic interstitial thickening and mild nodularity is unchanged. No right-sided pneumothorax is seen. The skeletal structures are osteopenic. The bony thorax is grossly intact. IMPRESSION: 1. A small left apical pneumothorax has not significantly changed from earlier today. 2. Advanced emphysema. 3. No airspace consolidation or large pleural effusion is identified. Impression Assessment and Plan Assessment and Plan Stable asymptomatic at least three day old PTX -2cm -stable from this AM s CXR -O2 and monitoring -repeat CXR in AM
--- NOTE | 2016-11-20 16:06 | PULMONARY CONSULTATION ---
DATE OF CONSULTATION: 11/20/2016 The patient is a 76-year-old female who was admitted to the hospital with a 23 mm left-sided pneumothorax and fracture of the left 9th or 10th ribs. Mr. Coates has asked me to evaluate the patient from pulmonary standpoint. She carries a history of severe chronic obstructive lung disease. I had seen her in the past, have not seen her for about a year or two as an outpatient. She has been fairly active at home doing her chores and caring for herself without difficulty. She denies cough or significant chest pain or shortness of breath on a regular basis. She recently had an admission here in September for COPD with exacerbation, has a history of cholecystectomy laparoscopically on 09/13/2016 with no complications. Apparently she has had some dilated ducts and recently underwent an endoscopy which was unremarkable according to the patient. During that last admission, her laboratory work looked fairly stable with CO2 of 31 on the electrolytes. She went home, has been fairly stable with a bit of left hip pain and was seen here on in the Emergency Room with right-sided chest pain and chest x-ray was unremarkable. Apparently she fell twice this week. She fell last Sunday after slipping on some heavy slippers at her bedroom and complained of left shoulder pain. Then several days ago on Sunday, she was pulling out a plug out of a surge protector, had difficulty with doing that and she fell backwards, striking her left chest against a large oak cabinet that had been her parents' cabinet. She is complaining of left-sided chest pain and shoulder pain. She saw Dr. Du, was noted that she had some contusion of the ribs. She had some hypertension today and worsening shortness of breath over about a 48-hour period of time. She states this is considerably worse than her usual mild exertional dyspnea. She denies cough, hemoptysis; has some left-sided chest discomfort. She was seen in the Emergency Room by Dr. Francisco, was noted to have pneumothorax on the left side and a fracture of the left 9th or 10th rib. She was placed on some oxygen and admitted to the hospital. Presently, she complains of significant shortness of breath with exertion. She denies aspiration. Has not had any syncope and otherwise her review of systems is unremarkable. The shortness of breath is worse compared to her usual baseline. PAST MEDICAL HISTORY: Positive for carcinoma of the breast, chronic obstructive lung disease moderate to severe, hysterectomy, mastectomy, coronary artery disease with an TN, pneumonia, COPD with exacerbation, ulnar nerve entrapment, hypertension. FAMILY HISTORY: Father had coal worker's pneumoconiosis. Mother had heart disease, pancreatic cancer. SOCIAL HISTORY: She has a [id number] history of cigarette smoking, quit about 12 years ago. No alcohol. She is . 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 MEDICATIONS: Noted. She carries a history of IBS, depression and anxiety as well. In review of the records, she has had cataract surgery bilaterally, had been admitted here for hypertension and according to those records, has a history of malabsorption syndrome and GERD. She does use ProAir at home and occasionally a nebulizer. PHYSICAL EXAMINATION: VITAL SIGNS: Stable. Her blood pressure remains elevated at 212/101. This morning at 0948, oxygen saturation is 95% on room air and that may have been on 2 liters. She was hypoxic with an oxygen saturation of 89% on room air at the time of admission with a blood pressure of 230/123. Her weight is 40.3 kilograms. During her hospitalization here in January of last year, she was 40 kilograms, so her weight has not changed appreciably. HEENT: Unremarkable. No subcutaneous emphysema is noted. No adenopathy is noted. CHEST: Shows fairly good expansion with deep inspiration with pain because of left rib fx. HEART: Regular rate and rhythm. No murmurs are heard. LUNGS: Reveal markedly decreased breath sounds bilaterally, otherwise are clear. No subcutaneous emphysema is noted by exam or auscultation. ABDOMEN: Soft and nontender. EXTREMITIES: She has no cyanosis, clubbing or edema. EKG shows normal sinus rhythm with PAC and poor R-wave progression across the precordium, consistent with an old septal infarction. Chest x-ray reveals a 23 mm apical pneumothorax on the left side, changes consistent with COPD and a fracture of at least the 9th and possibly the 10th rib, left side. LABORATORY DATA: White count is 8.3, hemoglobin is 11.7 with platelet count 237,000. The CO2 is elevated at 37 on the electrolytes with normal PRP, troponin and BNP. Urinalysis reveals trace hemoglobin, otherwise is unremarkable. IMPRESSION: 1. Left-sided pneumothorax related to fractured ribs. 2. Fracture, left 10th rib. 3. Severe chronic obstructive lung disease. 4. Coronary artery disease with history of myocardial infarction in the past. 5. Hypertension. RECOMMENDATIONS: 1. Consult Dr. Beal for consideration for chest tube. Initially I thought we may be able to watch the patient but her dyspnea is considerably worse and she is hypertensive. I think placing a small chest tube to allow for resolution of the pneumothorax may be needed at this point. 2. Continue with her present inhalers. I think the albuterol could be given 4 times a day. 3. Oxygen and follow the CO2 on the electrolytes. 4. Adjust the antihypertensive medications appropriately to allow for good blood pressure control. That may improve once the pneumothorax has resolved as well. She will need good pain control. We will have to watch for narcotics with the development of constipation in a patient with severe irritable bowel syndrome. Thanks for asking me to evaluate Ms. Jaramillo, I will put a consult in for Dr. Beal. I will be glad to follow along with you during her hospital stay. GRACE
[2016-11-20] MEDS ORDERED: HydrALAZINE 10 MG TAB PO PRN (21:00)
[2016-11-20] MEDS ORDERED: PROMETHAZINE HCL 25 MG TAB PO PRN (21:00)
[2016-11-20] MEDS ORDERED: ONDANSETRON 4 MG TAB PO PRN (21:00)
[2016-11-20] MEDS: CLONAZEPAM 0.5 MG TAB PO SCH (21:25)
[2016-11-20] MEDS: ALBUTEROL 0.083% NEBU SOLN 3 ML VIAL INH PRN (21:31)
[2016-11-21] MEDS: KETOROLAC TROMETHAMINE 15 MG/ML VIAL IV PRN ×4 (06:06→23:30)
[2016-11-21] MEDS: TRAMADOL HCL 50 MG TAB PO PRN (06:11)
[2016-11-21 06:43] LABS: HEMATOCRIT 35.4 % (37-47); MEAN CELL VOLUME 87.8 fL (80-100); MEAN CORPUSCULAR HEMOGLOBIN 29.8 pg (25-34); MEAN CORPUSCULAR HGB CONC 33.9 g/dl (32-36); MEAN PLATELET VOLUME 8.5 fL (7.4-10.4); PLATELET COUNT 278 K/uL (130-400); RED BLOOD COUNT 4.03 M/uL (4.2-5.4); WHITE BLOOD COUNT 7.26 K/uL (4.8-10.8)
[2016-11-21 07:08] VITALS: BP 133/70; PULSE 82; TEMP 36.4; O2SAT 97
--- NOTE | 2016-11-21 07:11 | DIAGNOSTIC IMAGING REPORT ---
CHEST ONE VIEW PORTABLE CLINICAL HISTORY: Left apical pneumothorax COMPARISON STUDY: 11/20/2016 FINDINGS: The patient is hyperinflated. There is radiographic evidence of emphysema. There is a 21 mm left apical pneumothorax. There is no failure. There are few scattered interstitial densities, likely chronic.[ IMPRESSION: Emphysema. Persistent left apical pneumothorax with a current pleural separation of 21 mm. Electronically signed by: Jatinder Cage M.D. 11/21/2016 7:09 AM Dictated Date/Time: 11/21/2016 7:04 AM
--- NOTE | 2016-11-21 07:15 | PROGRESS NOTE ---
DATE: 11/21/2016 SUBJECTIVE: The patient is comfortable this morning. She still has pain in the left rib area. Her vital capacity is only about 750 mL. We spoke about cough, deep breathing and increased activity. She has difficulty with urinating, may need a straight cath today. She denies worsening shortness of breath, sputum production, has not developed any subcutaneous emphysema. According to nurses' note she had a fairly good night last night. Tolerating eating fairly well. She was out of bed with minimal assist to void to the bathroom. PHYSICAL EXAMINATION: VITAL SIGNS: Stable and she is afebrile, blood pressure 143/74, oxygen saturation 91%-97% on 2-1/2 liters. I\T\O 120 in and 1150 out. Weight 40.3 kilograms. No weight has been done today. HEENT: Unremarkable. No thrush noted. NECK: There is no neck vein distention or HJR. HEART: Regular rate and rhythm. No murmurs or crackles or rubs noted. No gallops are auscultated. LUNGS: Reveal decreased breath sounds left hemithorax. The right lung appears to be just a bit more aerated. No subcutaneous emphysema is noted. There is no midline shift of the trachea. Expansion of the thorax is good with deep inspiration. ABDOMEN: Soft, nontender. EXTREMITIES: She has no cyanosis, clubbing or edema. I ordered a chest x-ray for this morning. LABORATORY DATA: White count 7.26, hemoglobin was 12. PRP is pending. CO2 was 37 on the electrolytes yesterday. BNP is unremarkable. Note from Dr. Jaquez appreciated. IMPRESSION: 1. Left apical pneumothorax. 2. Fractured rib, left side. 3. Severe chronic obstructive lung disease. RECOMMENDATIONS: 1. Continue with her present medications. 2. Recheck a chest x-ray. Hopefully, she will not need to have a chest tube placed since over the last 30 hours or so she is stable. 3. Continue with encouragement for incentive spirometer, increase activity, have the patient walking in the hallway with oxygen adjustment and deep breathing and coughing. I told he she could hold a pillow against her chest or have someone hug her lightly with a pillow against her chest to encourage coughing and she has agreed to do that. Will await the results of the chest x-ray.
[2016-11-21 07:20] LABS: BUN/CREATININE RATIO 17.9 (10-20); CREATININE 0.7 mg/dl (0.60-1.20); MAGNESIUM 1.8 mg/dl (1.8-2.4); POTASSIUM 3.7 mmol/L (3.5-5.1)
[2016-11-21] MEDS: DICYCLOMINE HCL 20 MG TAB PO SCH ×3 (08:57→17:54)
[2016-11-21] MEDS: LACTOBACILLUS ACIDOPHILUS (FLORANEX) TAB PO SCH ×3 (08:58→17:54)
[2016-11-21] MEDS: SUCRALFATE 1 GM TAB PO SCH ×2 (08:59→20:58)
[2016-11-21] MEDS: MAGNESIUM OXIDE 400 MG TAB PO SCH (09:00)
[2016-11-21] MEDS: ASPIRIN 81 MG ECTAB PO SCH (09:00)
[2016-11-21] MEDS: CYANOCOBALAMIN 500 MCG TAB (VIT B-12) PO SCH (09:01)
[2016-11-21] MEDS: PANTOprazole SOD 40 MG TAB PO SCH (09:01)
[2016-11-21] MEDS: CHOLECALCIFEROL 1000 INTER.UNIT TAB PO SCH (09:02)
[2016-11-21] MEDS: TOCOPHERYL, DL-ALPHA 400 INTER.UNIT CAP PO SCH (09:02)
[2016-11-21] MEDS: LIDODERM (LIDOCAINE) PATCH 5% TD SCH (09:03)
[2016-11-21] MEDS: FLUOXETINE HCL 10 MG CAP PO SCH (09:05)
[2016-11-21 09:06] VITALS: BP 146/84; PULSE 81
[2016-11-21] MEDS: CARVEDILOL 6.25 MG TAB PO SCH ×2 (09:07→20:57)
[2016-11-21] MEDS: TIOTROPIUM BROMIDE 5 PUFF/90 MCG INH INH SCH (09:09)
--- NOTE | 2016-11-21 11:11 | Surgery Progress Note ---
Surgery Progress Note Date of Service Nov 21, 2016. Subjective Post OP Day: HD 3 + chest pain, + complaints (some mild SOB), + feeling well, No nausea, No vomiting Objective Vital Signs: Date Time Temp Pulse Resp B/P Pulse Ox O2 Delivery O2 Flow Rate FiO2 11/21/16 09:06 81 146/84 11/21/16 07:08 36.4 82 16 133/70 97 Nasal Cannula 3.5 11/20/16 23:41 Nasal Cannula 2.5 11/20/16 22:50 36.5 87 16 143/74 91 Nasal Cannula 2.5 11/20/16 21:31 71 18 97 Nasal Cannula 1.0 11/20/16 21:17 92 127/67 11/20/16 18:27 137/65 11/20/16 17:04 89 164/73 11/20/16 16:00 36.6 89 16 184/84 98 Nasal Cannula 1.0 11/20/16 15:20 98 Nasal Cannula 1.0 11/20/16 12:20 89 145/79 11/20/16 12:11 Nasal Cannula 1.0 11/20/16 11:30 84 175/82 General Appearance: WD/WN, no apparent distress Head: normocephalic, atraumatic Neck: no adenopathy, trachea midline Respiratory/Chest: lungs clear, + decreased breath sounds (lrft) Cardiovascular: regular rate, rhythm Abdomen: normal bowel sounds, non tender, non distended, soft Extremities: normal range of motion, non-tender, no pedal edema Laboratory Results: Results Past 24 Hours Test 11/21/16 06:30 Range/Units White Blood Count 7.26 4.8-10.8 K/uL Red Blood Count 4.03 4.2-5.4 M/uL Hemoglobin 12.0 12.0-16.0 g/dL Hematocrit 35.4 37-47 % Mean Corpuscular Volume 87.8 80-100 fL Mean Corpuscular Hemoglobin 29.8 25-34 pg Mean Corpuscular Hemoglobin Concent 33.9 32-36 g/dl RDW Standard Deviation 44.7 36.4-46.3 fL RDW Coefficient of Variation 13.8 11.5-14.5 % Platelet Count 278 130-400 K/uL Mean Platelet Volume 8.5 7.4-10.4 fL Sodium Level 134 136-145 mmol/L Potassium Level 3.7 3.5-5.1 mmol/L Chloride Level 93 98-107 mmol/L Carbon Dioxide Level 32 21-32 mmol/L Anion Gap 9.0 3-11 mmol/L Blood Urea Nitrogen 13 7-18 mg/dl Creatinine 0.70 0.60-1.20 mg/dl Est Creatinine Clear Calc Drug Dose 44.2 ml/min Estimated GFR () 98.2 Estimated GFR (Non- 84.8 BUN/Creatinine Ratio 17.9 10-20 Random Glucose 93 70-99 mg/dl Calcium Level 9.0 8.5-10.1 mg/dl Magnesium Level 1.8 1.8-2.4 mg/dl Assessment & Plan left OTX, traumatic -resolving -clinically doing well -repeat CXR in AM -if tomorrows CXR good then home per medical team
--- NOTE | 2016-11-21 11:18 | Hospitalist Progress Note ---
Hospitalist Progress Note Date of Service Nov 21, 2016. Subjective Pt evaluation today including: conversation w/ patient, physical exam Pain: still complains of left sided rib pain denies any dyspnea. wants help walking around the unit. had some urinary retention this AM Medications Medications (Trade) Dose Ordered Sig/Ar Route Start Time Stop Time Status Last Admin Dose Admin Miscellaneous (Remove Lidoderm Patch) 1 ea DAILY@21 N/A 11/20/16 21:00 12/20/16 20:59 11/20/16 21:27 1 EA Clonazepam (Klonopin Tab) 1.5 mg HS PO 11/20/16 21:00 12/20/16 20:59 11/20/16 21:25 1.5 MG Fluoxetine HCl (Prozac Cap) 10 mg QAM PO 11/20/16 12:00 12/20/16 11:59 11/21/16 09:05 10 MG Lactobacillus Acidophilus (Floranex Tab) 4 tab TIDM PO 11/20/16 12:30 12/20/16 12:29 11/21/16 08:58 4 TAB Dicyclomine HCl 20 mg 20 mg TIDM PO 11/20/16 12:30 12/20/16 12:29 11/21/16 08:57 20 MG Promethazine HCl/ Sodium Chloride (Phenergan Inj/ Nss 50ml) 50.5 ml @ 204 mls/hr Q6H PRN IV 11/20/16 14:00 12/20/16 13:59 11/20/16 15:51 204 MLS/HR Objective Vital Signs Date Time Temp Pulse Resp B/P Pulse Ox O2 Delivery O2 Flow Rate FiO2 11/21/16 09:06 81 146/84 11/21/16 07:08 36.4 82 16 133/70 97 Nasal Cannula 3.5 11/20/16 23:41 Nasal Cannula 2.5 11/20/16 22:50 36.5 87 16 143/74 91 Nasal Cannula 2.5 11/20/16 21:31 71 18 97 Nasal Cannula 1.0 11/20/16 21:17 92 127/67 11/20/16 18:27 137/65 11/20/16 17:04 89 164/73 11/20/16 16:00 36.6 89 16 184/84 98 Nasal Cannula 1.0 11/20/16 15:20 98 Nasal Cannula 1.0 11/20/16 12:20 89 145/79 11/20/16 12:11 Nasal Cannula 1.0 11/20/16 11:30 84 175/82 Physical Exam General Appearance: no apparent distress Eyes: sclerae normal Neck: no JVD Respiratory/Chest: + pertinent finding (poor to fair entry bilaterally, not in any resp distress, mild end expiratory wheeze) Cardiovascular: regular rate, rhythm, no murmur Abdomen: normal bowel sounds, non tender, soft Extremities: no pedal edema Neurologic/Psychiatric: alert, oriented x 3 Skin: warm/dry Laboratory Results Last 24 Hours Test 11/21/16 06:30 White Blood Count 7.26 K/uL Red Blood Count 4.03 M/uL Hemoglobin 12.0 g/dL Hematocrit 35.4 % Mean Corpuscular Volume 87.8 fL Mean Corpuscular Hemoglobin 29.8 pg Mean Corpuscular Hemoglobin Concent 33.9 g/dl RDW Standard Deviation 44.7 fL RDW Coefficient of Variation 13.8 % Platelet Count 278 K/uL Mean Platelet Volume 8.5 fL Sodium Level 134 mmol/L Potassium Level 3.7 mmol/L Chloride Level 93 mmol/L Carbon Dioxide Level 32 mmol/L Anion Gap 9.0 mmol/L Blood Urea Nitrogen 13 mg/dl Creatinine 0.70 mg/dl Est Creatinine Clear Calc Drug Dose 44.2 ml/min Estimated GFR () 98.2 Estimated GFR (Non- 84.8 BUN/Creatinine Ratio 17.9 Random Glucose 93 mg/dl Calcium Level 9.0 mg/dl Magnesium Level 1.8 mg/dl Diagnostic Results CHEST ONE VIEW PORTABLE CLINICAL HISTORY: Left apical pneumothorax COMPARISON STUDY: 11/20/2016 FINDINGS: The patient is hyperinflated. There is radiographic evidence of emphysema. There is a 21 mm left apical pneumothorax. There is no failure. There are few scattered interstitial densities, likely chronic.[ IMPRESSION: Emphysema. Persistent left apical pneumothorax with a current pleural separation of 21 mm. Assessment and Plan (1) Urinary retention Assessment & Plan: probably related to pain meds and immobilization. encouraged increased activity. straight cath prn (2) Pneumothorax Assessment & Plan: stable and asymptomatic. will likely not require surgical intervention. continue to monitor. check CXR in am (3) Left rib fracture Assessment & Plan: pain fairly well-controlled with lidoderm patch plus prn's. encouraged increased activity and IS (4) Chronic obstructive pulmonary disease Assessment & Plan: stable, continue bronchodilators (5) Benign hypertension Assessment & Plan: controlled. continue antihypertensives (6) Anxiety Assessment & Plan: stable on prozac and prn ativan. Continued [facility] stay due to: inadequate oral pain control, other (needs close monitoring of PTX) Discharge planning: home with home health
[2016-11-21] MEDS: ONDANSETRON INJ 2 MG/ML 2 ML VIAL IV PRN (12:09)
[2016-11-21 13:50] VITALS: O2SAT 93
[2016-11-21] MEDS: ALBUTEROL HFA 8 GM INHALER INH PRN ×2 (14:46→17:54)
[2016-11-21 16:00] VITALS: BP 109/61; PULSE 77; TEMP 37; O2SAT 92
[2016-11-21] MEDS: LORAZEPAM INJ 1 MG in SYRINGE 0.5 ML IV PRN (18:26)
[2016-11-21 20:54] VITALS: BP 130/76; PULSE 83
[2016-11-21] MEDS: CLONAZEPAM 0.5 MG TAB PO SCH (20:58)
[2016-11-21 23:07] VITALS: BP 157/87; PULSE 72; TEMP 36.4; O2SAT 91
[2016-11-22] VITALS (8 sets, daily range): BP systolic 138–232; BP diastolic 81–116; PULSE 65–76; TEMP 36.4–36.7; O2SAT 92–96
--- NOTE | 2016-11-22 07:17 | DIAGNOSTIC IMAGING REPORT ---
CHEST ONE VIEW PORTABLE CLINICAL HISTORY: Left pneumothorax COMPARISON STUDY: 11/21/2016 FINDINGS: There is radiographic evidence of emphysema. The heart is normal in size. There is no acute parenchymal consolidation. There is slight interval decrease in size left apical pneumothorax which currently has a pleural separation of 14 mm.[ IMPRESSION: Emphysema. Left apical pneumothorax with a pleural separation of 14 mm. Electronically signed by: Jatinder Cage M.D. 11/22/2016 7:15 AM Dictated Date/Time: 11/22/2016 7:14 AM
[2016-11-22 07:36] LABS: HEMATOCRIT 30.3 % (37-47); MEAN CELL VOLUME 85.8 fL (80-100); MEAN PLATELET VOLUME 8.5 fL (7.4-10.4); PLATELET COUNT 229 K/uL (130-400); RED BLOOD COUNT 3.53 M/uL (4.2-5.4); WHITE BLOOD COUNT 5.98 K/uL (4.8-10.8)
[2016-11-22] MEDS: KETOROLAC TROMETHAMINE 15 MG/ML VIAL IV PRN ×2 (07:53→14:10)
[2016-11-22] MEDS: LIDODERM (LIDOCAINE) PATCH 5% TD SCH (07:58)
[2016-11-22] MEDS: DICYCLOMINE HCL 20 MG TAB PO SCH ×3 (08:01→17:45)
[2016-11-22] MEDS: LACTOBACILLUS ACIDOPHILUS (FLORANEX) TAB PO SCH ×3 (08:02→17:45)
--- NOTE | 2016-11-22 08:15 | PULMONARY PROGRESS NOTE ---
DATE: 11/22/2016 DATE: 11/22/2016 The patient is comfortable. She was in the bathroom this morning and walking back, she had some mild shortness of breath but feels good. She slept well last night. She denies any pleuritic type pain. She continues to have discomfort over the left fractured ribs. No subcutaneous emphysema is noted. She denies cough or sputum production. PHYSICAL EXAMINATION: VITAL SIGNS: Stable and she is afebrile, blood pressure is 157/87 last night. Oxygen saturation is 91% on room air, 92- 93% on 1 liter. I\T\O 120 in and 1150 out on the 16th, 880 in and 560 out yesterday. Weight is pending. Nurses' notes reviewed. MEDICATIONS: Reviewed. Notes from Dr. Jaquez certainly appreciated. HEENT: Unremarkable. No subcutaneous emphysema noted. HEART: Regular rate and rhythm. No murmurs are heard. LUNGS: Reveal decreased breath sounds bilaterally, otherwise are clear with no crackles noted. There is tenderness of course over the left 9th or 10th fractured rib. ABDOMEN: Soft, nontender. EXTREMITIES: She has no cyanosis, clubbing or edema and there is no evidence of DVT. LABORATORY DATA: PRP and CBC are pending. CO2 was 32 yesterday on the electrolytes. Chest x-ray is pending for this morning. IMPRESSION: 1. Left apical pneumothorax, spontaneous. 2. Chronic obstructive lung disease. RECOMMENDATIONS: 1. Follow up on the chest film. It appeared that the pneumothorax may have been a bit smaller yesterday. 2. I agree with Dr. Jaquez that a chest tube was not needed now since she seems to be comfortable and stable. Will just follow up with this. 3. If she is stable, she probably could be discharged with a followup next week for the chest film as an outpatient.
[2016-11-22 08:42] LABS: BUN/CREATININE RATIO 31.1 (10-20); CALCIUM 8.7 mg/dl (8.5-10.1); CREATININE 0.62 mg/dl (0.60-1.20); POTASSIUM 3.8 mmol/L (3.5-5.1)
[2016-11-22] MEDS: TIOTROPIUM BROMIDE 5 PUFF/90 MCG INH INH SCH (08:42)
[2016-11-22] MEDS: ASPIRIN 81 MG ECTAB PO SCH (08:43)
[2016-11-22] MEDS: MAGNESIUM OXIDE 400 MG TAB PO SCH (08:45)
[2016-11-22] MEDS: SUCRALFATE 1 GM TAB PO SCH (08:45)
[2016-11-22] MEDS: PANTOprazole SOD 40 MG TAB PO SCH (08:46)
[2016-11-22] MEDS: CARVEDILOL 6.25 MG TAB PO SCH (08:46)
[2016-11-22] MEDS: FLUOXETINE HCL 10 MG CAP PO SCH (08:47)
[2016-11-22] MEDS: CYANOCOBALAMIN 500 MCG TAB (VIT B-12) PO SCH (08:48)
[2016-11-22] MEDS: CHOLECALCIFEROL 1000 INTER.UNIT TAB PO SCH (08:48)
[2016-11-22] MEDS: TOCOPHERYL, DL-ALPHA 400 INTER.UNIT CAP PO SCH (08:48)
[2016-11-22] MEDS: ALBUTEROL 0.083% NEBU SOLN 3 ML VIAL INH PRN (10:38)
[2016-11-22] MEDS: LORAZEPAM INJ 1 MG in SYRINGE 0.5 ML IV PRN (12:14)
--- NOTE | 2016-11-22 12:47 | Surgery Progress Note ---
Surgery Progress Note Date of Service Nov 22, 2016. Subjective Post OP Day: HD 4 + complaints (less SOB), + feeling well, + pain controlled, No nausea, No vomiting Objective Vital Signs: Date Time Temp Pulse Resp B/P Pulse Ox O2 Delivery O2 Flow Rate FiO2 11/22/16 10:38 65 18 96 Nasal Cannula 2.0 11/22/16 10:24 Nasal Cannula 1.0 11/22/16 07:57 36.4 70 18 138/82 92 Nasal Cannula 1.0 11/22/16 07:45 Nasal Cannula 1.0 11/21/16 23:37 Nasal Cannula 1.0 11/21/16 23:07 36.4 72 18 157/87 91 Room Air 11/21/16 20:54 83 130/76 11/21/16 16:00 37.0 77 18 109/61 92 Nasal Cannula 1.0 11/21/16 15:50 Nasal Cannula 1.0 11/21/16 13:50 93 Nasal Cannula 1.0 General Appearance: WD/WN, no apparent distress Head: normocephalic, atraumatic Neck: supple, trachea midline Respiratory/Chest: lungs clear, + decreased breath sounds Cardiovascular: regular rate, rhythm Abdomen: normal bowel sounds, non tender, non distended, soft Extremities: non-tender, no pedal edema Laboratory Results: Results Past 24 Hours Test 11/22/16 07:10 Range/Units White Blood Count 5.98 4.8-10.8 K/uL Red Blood Count 3.53 4.2-5.4 M/uL Hemoglobin 10.6 12.0-16.0 g/dL Hematocrit 30.3 37-47 % Mean Corpuscular Volume 85.8 80-100 fL Mean Corpuscular Hemoglobin 30.0 25-34 pg Mean Corpuscular Hemoglobin Concent 35.0 32-36 g/dl RDW Standard Deviation 41.7 36.4-46.3 fL RDW Coefficient of Variation 13.2 11.5-14.5 % Platelet Count 229 130-400 K/uL Mean Platelet Volume 8.5 7.4-10.4 fL Sodium Level 128 136-145 mmol/L Potassium Level 3.8 3.5-5.1 mmol/L Chloride Level 88 98-107 mmol/L Carbon Dioxide Level 30 21-32 mmol/L Anion Gap 10.0 3-11 mmol/L Blood Urea Nitrogen 19 7-18 mg/dl Creatinine 0.62 0.60-1.20 mg/dl Est Creatinine Clear Calc Drug Dose 49.9 ml/min Estimated GFR () 102.2 Estimated GFR (Non- 88.2 BUN/Creatinine Ratio 31.1 10-20 Random Glucose 92 70-99 mg/dl Calcium Level 8.7 8.5-10.1 mg/dl Diagnostic Interpretation: CHEST ONE VIEW PORTABLE CLINICAL HISTORY: Left pneumothorax COMPARISON STUDY: 11/21/2016 FINDINGS: There is radiographic evidence of emphysema. The heart is normal in size. There is no acute parenchymal consolidation. There is slight interval decrease in size left apical pneumothorax which currently has a pleural separation of 14 mm.[ IMPRESSION: Emphysema. Left apical pneumothorax with a pleural separation of 14 mm. Assessment & Plan left PTX, traumatic -resolving -clinically doing well -repeat CXR shows smaller PTX -home per medical team -will sign off, F/U w/pulmonology
[2016-11-22] MEDS ORDERED: LDDP5 TD ×2 (13:23)
--- NOTE | 2016-11-22 13:27 | Discharge Instructions ---
Discharge Instructions Admission Reason for Admission: Left Rib Fracture, Pneumothorax Discharge Discharge Diagnosis / Problem: Pneumothorax, Left 10th rib fracture Discharge Goals Goal(s): Decrease discomfort, Improve function, Increase independence Activity Recommendations Activity Limitations: resume your previous activity Shower/Bathe: no limitations Driving or Machine Use: no limitations . Instructions / Follow-Up Instructions / Follow-Up Follow up with PCP within one week. Current Hospital Diet Patient's current hospital diet: AHA Diet (Heart Healthy), Low Lactose Diet Discharge Diet Recommended Diet: AHA Diet (Heart Healthy), Low Lactose Diet Pending Studies Studies pending at discharge: no Laboratory Results Last 24 Hours Test 11/22/16 07:10 White Blood Count 5.98 K/uL Red Blood Count 3.53 M/uL Hemoglobin 10.6 g/dL Hematocrit 30.3 % Mean Corpuscular Volume 85.8 fL Mean Corpuscular Hemoglobin 30.0 pg Mean Corpuscular Hemoglobin Concent 35.0 g/dl RDW Standard Deviation 41.7 fL RDW Coefficient of Variation 13.2 % Platelet Count 229 K/uL Mean Platelet Volume 8.5 fL Sodium Level 128 mmol/L Potassium Level 3.8 mmol/L Chloride Level 88 mmol/L Carbon Dioxide Level 30 mmol/L Anion Gap 10.0 mmol/L Blood Urea Nitrogen 19 mg/dl Creatinine 0.62 mg/dl Est Creatinine Clear Calc Drug Dose 49.9 ml/min Estimated GFR () 102.2 Estimated GFR (Non- 88.2 BUN/Creatinine Ratio 31.1 Random Glucose 92 mg/dl Calcium Level 8.7 mg/dl Medical Emergencies . Who to Call and When: Medical Emergencies: If at any time you feel your situation is an emergency, please call 911 immediately. . Non-Emergent Contact Non-Emergency issues call your: Primary Care Provider Call Non-Emergent contact if: your pain is not controlled, your pain is worsening, you have any medication questions . . "Provider Documentation" section prepared by Gal Vasques. VTE Core Measure Inpt VTE Proph given/why not?: Usman Ponce, SCD's
[2016-11-22] MEDS ORDERED: HydrALAZINE HCL 20 MG/ML VIAL IV. STA (15:44)
--- NOTE | 2016-11-22 17:35 | Discharge Summary ---
Discharge Summary Admission Date: Nov 20, 2016 at 08:44 Discharge Date: Nov 22, 2016 Discharge Disposition: Home Principal Diagnosis: Left apical pneumothorax, left 10th rib fracture Problems/Secondary Diagnoses: Urinary retention, COPD, HTN, anxiety Immunizations: Have You Had Influenza Vaccine: Yes Influenza Vaccine Date: Oct 13, 2013 History of Tetanus Vaccine?: Yes Tetanus Immunization Date: Nov 03, 2008 History of Pneumococcal: Yes Pneumococcal Date: Jul 04, 2013 History of Hepatitis B Vaccine: No Medication Reconciliation New Medications: Lidocaine (Lidocaine) 1 Patch Tdsy 1 PATCH TD QAM for 14 Days, #14 PATCH 2 Refills Apply to most painful area over left ribs Continued Medications: Albuterol (Proair Hfa) Aers 1-2 PUFFS INH Q4H PRN for Shortness of Breath Albuterol Soln (Proventil 0.083% 2.5MG/3ML) Nebu 2.5 MG INH Q4-6HRS PRN for Wheezing, EA Aspirin (Aspirin Ec) 81 Mg Tab 81 MG PO DAILY Buspirone Hcl (Buspirone Hcl) 10 Mg Tab 10 MG PO TID Carvedilol (Carvedilol) 6.25 Mg Tab 1.5 TAB PO BID Cholecalciferol (Vitamin D) 2,000 Unit Tab 1 TAB PO QAM Clonazepam (Klonopin) 1 Mg Tab 1.5 MG PO HS Cyanocobalamin (Vitamin B-12) 1,000 Mcg Tab 1000 MCG PO QAM, TAB Dicyclomine Hcl (Dicyclomine Hcl) 20 Mg Tab 20 MG PO TID Fluoxetine (Prozac) 10 Mg Cap 10 MG PO QAM CANNOT TAKE GENERIC BRAND Fluticasone Propionate (Nasal) (Flonase Allergy Relief) 50 Mcg/Act Spr 2 SPRAYS LAUREN BID PRN for NEEDED Magnesium Oxide (Mg Supplement (Magnesium) 500 Mg Tab 500 MG PO DAILY Ondansetron Hcl (Zofran) 4 Mg Tab 4 MG PO QID PRN for Nausea, TAB Pancrelipase (Lipase-Protease- (Creon) 1 Cap Cap 2 CAP PO TIDM ALSO TAKE WITH SNACKS Pantoprazole Sodium (Protonix) 40 Mg Tab 40 MG PO QAM TAKE THIS MEDICATION 30 MINUTES PRIOR TO BREAKFAST. Probiotic Product (Probiotic) 1 Cap Cap 1 CAP PO TIDM Sucralfate (Sucralfate) 1 Gm Tab 1 GM PO BID Tiotropium [place] (Spiriva Handihaler) 18 Mcg/ Aerp 1 CAP INH QAM Tocopheryl Acet,Dl-Alpha (Vitamin E) 400 Inter.unit Cap 400 INTER.UNIT PO QAM Tramadol (Ultram) 50 Mg Tab 50-100 MG PO Q6 hrs PRN for Pain, #30 TAB Discharge Exam Physical Exam: General Appearance: no apparent distress Eyes: sclerae normal Neck: no JVD Respiratory/Chest: lungs clear, normal breath sounds Cardiovascular: regular rate, rhythm Abdomen / GI: normal bowel sounds, non tender, soft Extremities: no pedal edema Neurologic/Psychiatric: alert, oriented x 3 Skin: normal color, warm/dry Hospital Course (1) Pneumothorax Status: Acute Patient presented complaining of left posterolateral rib pain several days after a fall. Imaging suggested a left 10th rib fracture posterolaterally. There was also a 23mm apical pneumothorax on the left. This was managed conservatively with oxygen, analgesics, and serial imaging. By today, the pneumothorax has decreased to 14mm and she remains without respiratory complaint. (2) Left rib fracture Status: Acute Pain was well-controlled with a lidocaine transdermal patch, which is being prescribed at discharge. She was encouraged to continue activity as tolerated and to use the incentive spirometer. (3) Urinary retention Status: Acute On hospital day #2, in the evening, she had urinary retention requiring straight cath twice. This morning, she was able to void normally with a post void residual of 0mLs by bladder scan. She was referred for outpatient Urology evaluation if her symptoms recur. This was likely due to pain medications and inactivity. (4) Chronic obstructive pulmonary disease Status: Chronic Her COPD remained stable and not in exacerbation throughout her course. She was continued on her usual home meds. (5) Benign hypertension Status: Chronic Her blood pressure was uncontrolled on several occasions during her stay that seemed to correlate with periods of anxiety. She was advised to continue follow up with her PCP for further titration of her BP meds. (6) Anxiety Status: Chronic She has periods of extreme anxiety related to family and social issues. This is likely contributing to her elevated blood pressures. She was continued on her usual Prozac, Buspar, and clonazepam. She also required a few doses of p.r.n. Ativan. This includes examination of the patient, discharge planning, medication reconciliation, and communication with other providers. Discharge Instructions Please refer to the electronic Patient Visit Report (Discharge Instructions) for additional information. Follow-Up with PCP within one week Additional Copies To Ryan Lucia M.D.
== END 2016-11-22 18:13 | disposition home health service (06) | DRG 200 ==
LOC: ENRESERVTM → ENRESERVDT → EDBD 04:10 → C.EDA 04:11 → C.MSN 08:37 → OBSVTOIN 08:44 → EDBEDREQ 09:01
PROVIDERS: ADMIT Internal Medicine; ATTEND Hospitalist
DX: J93.9 Pneumothorax, unspecified (principal); S22.32XA Fracture of one rib, left side, initial encounter for closed fracture; I10 Essential (primary) hypertension; F41.9 Anxiety disorder, unspecified; J44.9 Chronic obstructive pulmonary disease, unspecified; R33.9 Retention of urine, unspecified; D64.9 Anemia, unspecified; E55.9 Vitamin D deficiency, unspecified; K58.9 Irritable bowel syndrome, unspecified; E83.42 Hypomagnesemia; Z66 Do not resuscitate; K21.9 Gastro-esophageal reflux disease without esophagitis; F32.9 Major depressive disorder, single episode, unspecified; I25.10 Atherosclerotic heart disease of native coronary artery without angina pectoris; I25.2 Old myocardial infarction; Z87.891 Personal history of nicotine dependence; Z85.3 Personal history of malignant neoplasm of breast; I27.2 Other secondary pulmonary hypertension; W19.XXXA Unspecified fall, initial encounter

== ENCOUNTER 2016-11-26 19:07 | Emergency (ER) | payer OTHER ==
[~2016-11-26] VITALS: Ht 157.5 cm; Wt 37.1 kg
[~2016-11-26 19:07] MED LIST changes: +LDDP5 TD; +SUCR1TAB PO
[2016-11-26 19:13] VITALS: TEMP 36.6; Ht 157.5 cm; Wt 37.1 kg
[2016-11-26 19:44] VITALS: O2SAT 96
--- NOTE | 2016-11-26 20:07 | DIAGNOSTIC IMAGING REPORT ---
CHEST ONE VIEW PORTABLE CLINICAL HISTORY: severe hypertension SHORTNESS OF BREATH, COPD COMPARISON STUDY: 11/22/2016 FINDINGS: The cardiac and mediastinal contours remain stable. There is radiographic evidence of severe emphysema. There is no acute parenchymal consolidation. There are no significant pleural effusions. No pneumothorax is visualized.[ IMPRESSION: Emphysema. No active disease in the chest. Electronically signed by: Jatinder Cage M.D. 11/26/2016 8:06 PM Dictated Date/Time: 11/26/2016 8:05 PM
[2016-11-26 20:09] LABS: BASO % 1.1 %; BASO ABS # 0.05 K/uL (0-0.2); COMPLETE YES; HEMATOCRIT 31.9 % (37-47); IG% 0.5 %; LYMPH % 30.8 %; LYMPH ABS # 1.36 K/uL (1.2-3.4); MEAN CELL VOLUME 89.6 fL (80-100); MEAN CORPUSCULAR HEMOGLOBIN 30.1 pg (25-34); MEAN CORPUSCULAR HGB CONC 33.5 g/dl (32-36); MEAN PLATELET VOLUME 8.5 fL (7.4-10.4); MONO % 10.7 %; NEUT % 49.9 %; PLATELET COUNT 343 K/uL (130-400); RED BLOOD COUNT 3.56 M/uL (4.2-5.4); WHITE BLOOD COUNT 4.41 K/uL (4.8-10.8)
[2016-11-26 20:20] LABS: PARTIAL THROMBOPLASTIN RATIO 1.2; PROTHROMBIN TIME (PATIENT) 10.3 SECONDS (9.0-12.0)
[2016-11-26 20:28] LABS: ALT/SGPT 14 U/L (12-78); BLOOD UREA NITROGEN 10 mg/dl (7-18); CALCIUM 8.8 mg/dl (8.5-10.1); CARBON DIOXIDE 31 mmol/L (21-32); CHLORIDE 92 mmol/L (98-107); GLUCOSE 108 mg/dl (70-99); POTASSIUM 4.3 mmol/L (3.5-5.1); SODIUM 134 mmol/L (136-145)
[2016-11-26 20:39] LABS: ALKALINE PHOSPHATASE 106 U/L (45-117); AST/SGOT 14 U/L (15-37); CKMB/CK RATIO 2.2 (0-3.0)
[2016-11-26 21:50] VITALS: BP 186/92; PULSE 76; O2SAT 99
[2016-11-26 22:16] LABS: URINE APPEARANCE CLEAR (CLEAR); URINE BILIRUBIN NEG (NEG); URINE COLOR YELLOW; URINE NITRITE NEG (NEG); URINE SPECIFIC GRAVITY 1.014 (1.000-1.030); UROBILINOGEN NEG (NEG)
[2016-11-26 22:22] LABS: MANUAL MICROSCOPIC REQUIRED? NO; REVIEW REQ? NO
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
== END 2016-11-26 22:11 | disposition home or self-care (01) ==
LOC: C.EDB 19:09 → C.EDC 22:11
DX: I10 Essential (primary) hypertension (principal); F41.9 Anxiety disorder, unspecified; J44.9 Chronic obstructive pulmonary disease, unspecified; I25.2 Old myocardial infarction; Z79.899 Other long term (current) drug therapy; Z79.82 Long term (current) use of aspirin; Z85.3 Personal history of malignant neoplasm of breast; Z87.891 Personal history of nicotine dependence; Z80.0 Family history of malignant neoplasm of digestive organs; Z83.6 Family history of other diseases of the respiratory system; Z82.49 Family history of ischemic heart disease and other diseases of the circulatory system; Z82.3 Family history of stroke

== ENCOUNTER → 2016-12-13 | Outpatient (CLI) | payer OTHER ==
[~2016-12-13] MED LIST changes: +ALBU18002 INH; +AMLO-110 PO; +ATV5X PO; +CHOL4POW4 PO; -LEVO1TAB33 PO; -MOXI400T2 PO; +SPRIN/30 INH; +VITA400C3 PO; +ZTHM250 PO
== END | disposition home or self-care (01) ==
LOC: C.RDSM 13:00
PROVIDERS: ATTEND Orthopaedic Surgery Sports Medicine
DX: M25.552 Pain in left hip (principal)

== ENCOUNTER → 2016-12-15 | Outpatient (CLI) | payer OTHER ==
--- NOTE | 2016-12-15 17:08 | DIAGNOSTIC IMAGING REPORT ---
TWO VIEW CHEST CLINICAL HISTORY: Cough. Pneumonia. FINDINGS: PA and lateral chest radiographs are compared to study dated 11/26/2016. Correlation is made with chest CT dated 10/19/2015. The cardiomediastinal silhouette is unremarkable. There is atherosclerotic calcification of the thoracic aorta. Advanced emphysema and chronic interstitial thickening are similar to previous. Bilateral fat-containing Bochdalek hernias with minimal associated atelectasis are seen on the lateral view. There is no airspace consolidation typical for pneumonia or pleural effusion. Apical scarring is observed. There is no pneumothorax. The skeletal structures are osteopenic. The bony thorax appears intact. Cholecystectomy clips are identified in the right upper quadrant. IMPRESSION: Advanced emphysema with no active disease in the chest. Electronically signed by: Fredy Coffman M.D. 12/15/2016 5:07 PM Dictated Date/Time: 12/15/2016 5:05 PM
== END | disposition home or self-care (01) ==
LOC: C.RAD1850 16:23
PROVIDERS: ATTEND Nurse Practitioner Adult Health
DX: R05 Cough (principal); J18.9 Pneumonia, unspecified organism; J43.9 Emphysema, unspecified

== ENCOUNTER → 2016-12-15 | Outpatient (CLI) | payer OTHER ==
[2016-12-15 15:29] LABS: BASO % 0.9 %; BASO ABS # 0.04 K/uL (0-0.2); COMPLETE YES; HEMATOCRIT 34.9 % (37-47); LYMPH % 35.5 %; LYMPH ABS # 1.51 K/uL (1.2-3.4); MEAN CELL VOLUME 89.9 fL (80-100); MEAN CORPUSCULAR HEMOGLOBIN 29.6 pg (25-34); MEAN PLATELET VOLUME 9.1 fL (7.4-10.4); MONO % 8.7 %; NEUT % 50.9 %; PLATELET COUNT 272 K/uL (130-400); RED BLOOD COUNT 3.88 M/uL (4.2-5.4); WHITE BLOOD COUNT 4.25 K/uL (4.8-10.8)
[2016-12-15 15:50] LABS: URINE APPEARANCE CLEAR (CLEAR); URINE BILIRUBIN NEG (NEG); URINE COLOR YELLOW; URINE NITRITE NEG (NEG); URINE SPECIFIC GRAVITY 1.006 (1.000-1.030); UROBILINOGEN NEG (NEG)
[2016-12-15 15:51] LABS: ALT/SGPT 13 U/L (12-78); BLOOD UREA NITROGEN 8 mg/dl (7-18); BUN/CREATININE RATIO 11.9 (10-20); CARBON DIOXIDE 30 mmol/L (21-32); CHLORIDE 95 mmol/L (98-107); CREATININE 0.68 mg/dl (0.60-1.20); GLUCOSE 136 mg/dl (70-99); POTASSIUM 3.7 mmol/L (3.5-5.1); SODIUM 135 mmol/L (136-145)
[2016-12-15 15:54] LABS: ALB/GLOB RATIO 1.2 (0.9-2); ALKALINE PHOSPHATASE 120 U/L (45-117); AST/SGOT 13 U/L (15-37)
[2016-12-15 15:57] LABS: MANUAL MICROSCOPIC REQUIRED? NO; REVIEW REQ? NO
== END | disposition home or self-care (01) ==
LOC: C.LAB1850 14:18
PROVIDERS: ATTEND Internal Medicine
DX: E87.1 Hypo-osmolality and hyponatremia (principal); J44.9 Chronic obstructive pulmonary disease, unspecified; N39.0 Urinary tract infection, site not specified; R05 Cough; J18.9 Pneumonia, unspecified organism; J43.9 Emphysema, unspecified

== ENCOUNTER → 2016-12-26 | Outpatient (CLI) | payer OTHER ==
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
== END | disposition home or self-care (01) ==
LOC: C.RAD1850 13:18
PROVIDERS: ATTEND Internal Medicine Pulmonary Disease
DX: R09.02 Hypoxemia (principal); J43.9 Emphysema, unspecified

== ENCOUNTER 2017-01-25 21:38 | Emergency (ER) | payer OTHER ==
[~2017-01-25] VITALS: Ht 157.5 cm; Wt 36.1 kg
[~2017-01-25 21:38] MED LIST changes: -ALBU18002 INH; -AMLO-110 PO; -ATV5X PO; -CHOL4POW4 PO; -SPRIN/30 INH; -VITA400C3 PO; -ZTHM250 PO
[2017-01-25 21:48] VITALS: TEMP 36.4; Ht 157.5 cm; Wt 36.1 kg
[2017-01-25 22:40] VITALS: O2SAT 97
[2017-01-25] MEDS ORDERED: ALBU18002 INH (22:43)
[2017-01-25] MEDS ORDERED: SPRIN/30 INH (22:54)
[2017-01-25] MEDS ORDERED: VITA400C3 PO (22:58)
[2017-01-25] MEDS ORDERED: HydrALAZINE HCL 20 MG/ML VIAL IV. STA (23:45)
--- NOTE | 2017-01-25 23:48 | EMERGENCY ROOM VISIT NOTE ---
History Report prepared by Ben: Remedios Taveras Under the Supervision of: Dr. Mili Francisco D.O. First contact with patient: 23:13 Chief Complaint: HYPERTENSION Stated Complaint: SOB CHEST PAIN PANIC ATTACK History of Present Illness The patient is a 76 year old female who presents to the Emergency Room with complaints of persistent, worsening hypertension that began prior to arrival. The patient states that over the last several months she has been under increased stress. She states that in September she had a cholecystectomy, and states that she has had persistent pain since then and has been ill. The patient states that she had an ultrasound endoscopy in November to see if anything was in the biliary duct, but states that everything came back normal. She states that she also fell multiple times in November injuring her left wrist , left hip, and ribs. The patient states that over the last several weeks she has been increasingly short of breath. She states that she saw her PCP and was placed on a Medrol dose pack. The patient states that the medication did not help. She states that she called her PCP's office today and was instructed to come to the emergency department. The patient states that her blood pressure continued to rise this evening and she continued to have shortness of breath. Source of History: patient Onset: prior to arrival Position: other (global) Quality: other (hypertension) Timing: worsening, other (persistent) Modifying Factors (Worsening): other (stress) Associated Symptoms: + SOB Review of Systems See HPI for pertinent positives & negatives. A total of 10 systems reviewed and were otherwise negative. 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 Family History FH: cancer (pancreatic) FH: heart disease FH: lung disease (coal worker's pneumoconiosis) Stroke Social History Smoking Status: Former Smoker Alcohol Use: none Drug Use: none Marital Status: Housing Status: lives alone Occupation Status: retired Current/Historical Medications Scheduled Aspirin (Aspirin Ec), 81 MG PO DAILY Buspirone Hcl (Buspirone Hcl), 10 MG PO TID Carvedilol (Carvedilol), 12.5 TAB PO BID Cholecalciferol (Vitamin D), 1 TAB PO QAM Clonazepam (Klonopin), 1.5 MG PO HS Cyanocobalamin (Vitamin B-12), 1,000 MCG PO QAM Dicyclomine Hcl (Dicyclomine Hcl), 20 MG PO TID Fluoxetine (Prozac), 10 MG PO QAM Magnesium Oxide (Mg Supplement (Magnesium), 500 MG PO DAILY Pancrelipase (Lipase-Protease- (Creon), 2 CAP PO TIDM Pantoprazole Sodium (Protonix), 40 MG PO QAM Probiotic Product (Probiotic), 2 CAP PO DAILY Sucralfate (Sucralfate), 1 GM PO BID Tiotropium Liscomb (Spiriva Handihaler), 1 CAP INH DAILY Vitamin E (Vitamin E 400 Iu), 400 INTER.UNIT PO DAILY Scheduled PRN Albuterol Sulfate (Proair Respiclick), 1-2 PUFFS INH Q4H PRN for Shortness of Breath Fluticasone Propionate (Nasal) (Flonase Allergy Relief), 2 SPRAYS LAUREN BID PRN for NEEDED Ondansetron Hcl (Zofran), 4 MG PO QID PRN for Nausea Tramadol (Ultram), 50-100 MG PO Q6 hrs PRN for Pain Allergies Coded Allergies: Methylprednisolone (Unverified Allergy, Severe, COUGHING, SHORTNESS OF BREATH, 01/25/17) Penicillins (Verified Allergy, Intermediate, RASH/NAUSEA, 01/25/17) Dexamethasone (Verified Allergy, Unknown, UNSURE OF REACTION, 01/25/17) Iodinated Diagnostic Agents (Verified Allergy, Unknown, SHAKY AND FEELS LIKE WILL PASS OUT, 01/25/17) Morphine (Verified Adverse Reaction, Severe, vomitting, 01/25/17) Clindamycin (Verified Adverse Reaction, Mild, GI SYMPTOMS, 01/25/17) STOMACH CRAMPS-FLARE OF IBS Diazepam (Verified Adverse Reaction, Mild, FEELS MANIC WHEN TAKES, 01/25/17 ) Erythromycin (Verified Adverse Reaction, Mild, GI SYMPTOMS, 01/25/17) Oxycodone (Verified Adverse Reaction, Mild, HALLUCINATE, 01/25/17) Tetracyclines (Verified Adverse Reaction, Mild, N/V, 01/25/17) Diphenhydramine (Verified Adverse Reaction, Unknown, HALLUCINATION, ) Lactose Intolerance (Verified Adverse Reaction, Unknown, IBS, 01/25/17) Levofloxacin (Verified Adverse Reaction, Unknown, HAS BLEEDING FROM IV SITE, PO OK, NOT IV, 01/25/17) PT STATED THAT SHE'S OKAY TO TAKE LEVAQUIN ORAL BUT NOT IV Sulfamethoxazole w/Trimethoprim (Unverified Adverse Reaction, Unknown, N/V , 01/25/17) Physical Exam Vital Signs Date Time Temp Pulse Resp B/P Pulse Ox O2 Delivery O2 Flow Rate FiO2 01/26/17 01:40 86 24 175/84 93 Room Air 01/26/17 01:34 78 01/26/17 00:54 88 24 171/77 94 Room Air 01/26/17 00:13 85 32 160/82 95 Room Air 01/25/17 23:10 79 16 181/96 95 Room Air 01/25/17 22:40 97 Room Air 01/25/17 22:31 78 01/25/17 21:48 36.4 79 16 215/123 95 Room Air Physical Exam HEENT: Head - normocephalic and atraumatic Pupils are equal, round, and reactive to light. Extraocular eye muscles are intact, and sclera are anicteric. Nose - moist nasal mucosa without discharge. Mouth - moist buccal mucosa. Oropharynx is nonerythematous and there is no tonsillar exudate or edema noted. Neck: Supple; no JVD, nuchal rigidity, cervical lymphadenopathy. Heart: Regular rate and rhythm. There is a normal S1 and S2 with no murmurs, clicks, or gallops appreciated. Lungs: Diminished breath sounds in all lung wilson, rhonchi at both bases. Abdomen: Soft, completely nontender, nondistended, with good bowel sounds. There are no palpable pulsatile masses or hepatosplenomegaly. There is no guarding, rigidity, or rebound noted. Extremities: No evidence of cyanosis, clubbing, or edema. There are easily palpable peripheral pulses. Skin: warm and dry with good turgor and no rashes. Medical Decision & Procedures ER Provider Diagnostic Interpretation: 2 view chest x-ray: Narrow mediastinum, emphysematous changes, possible early infiltrate in left lung base vs. atelectasis. Laboratory Results 01/26/17 00:06 Red Blood Count 4.21, Mean Corpuscular Volume 85.0, Mean Corpuscular Hemoglobin 29.5, Mean Corpuscular Hemoglobin Concent 34.6, Mean Platelet Volume 9.1, Neutrophils (%) (Auto) 71.7, Lymphocytes (%) (Auto) 16.7, Monocytes (%) (Auto) 10.1, Eosinophils (%) (Auto) 0.9, Basophils (%) (Auto) 0.3, Neutrophils # (Auto ) 4.20, Lymphocytes # (Auto) 0.98, Monocytes # (Auto) 0.59, Eosinophils # (Auto ) 0.05, Basophils # (Auto) 0.02 01/26/17 00:06 Test 01/26/17 00:06 White Blood Count 5.86 K/uL (4.8-10.8) Red Blood Count 4.21 M/uL (4.2-5.4) Hemoglobin 12.4 g/dL (12.0-16.0) Hematocrit 35.8 % (37-47) Mean Corpuscular Volume 85.0 fL (80-100) Mean Corpuscular Hemoglobin 29.5 pg (25-34) Mean Corpuscular Hemoglobin Concent 34.6 g/dl (32-36) Platelet Count 268 K/uL (130-400) Mean Platelet Volume 9.1 fL (7.4-10.4) Neutrophils (%) (Auto) 71.7 % Lymphocytes (%) (Auto) 16.7 % Monocytes (%) (Auto) 10.1 % Eosinophils (%) (Auto) 0.9 % Basophils (%) (Auto) 0.3 % Neutrophils # (Auto) 4.20 K/uL (1.4-6.5) Lymphocytes # (Auto) 0.98 K/uL (1.2-3.4) Monocytes # (Auto) 0.59 K/uL (0.11-0.59) Eosinophils # (Auto) 0.05 K/uL (0-0.5) Basophils # (Auto) 0.02 K/uL (0-0.2) RDW Standard Deviation 41.5 fL (36.4-46.3) RDW Coefficient of Variation 13.5 % (11.5-14.5) Immature Granulocyte % (Auto) 0.3 % Immature Granulocyte # (Auto) 0.02 K/uL (0.00-0.02) Anion Gap 9.0 mmol/L (3-11) Est Creatinine Clear Calc Drug Dose 39.6 ml/min Estimated GFR () 98.2 Estimated GFR (Non- 84.8 BUN/Creatinine Ratio 21.1 (10-20) Calcium Level 8.6 mg/dl (8.5-10.1) Total Creatine Kinase 41 U/L (26-192) Creatine Kinase MB 1.0 ng/ml (0.5-3.6) Creatine Kinase MB Ratio 2.4 (0-3.0) Troponin I < 0.015 ng/ml (0-0.045) Pro-B-Type Natriuretic Peptide 245 pg/ml (0-900) Laboratory results per my review. Medications Administered Medications (Trade) Dose Ordered Sig/Ar Route Start Time Stop Time Status Last Admin Dose Admin Hydralazine HCl (HydrALAZINE INJ) 10 mg NOW STAT IV. 01/25/17 23:45 01/25/17 23:49 DC 01/25/17 23:56 10 MG Lorazepam (Ativan Inj) 0.5 mg NOW STAT IV 01/26/17 00:17 01/26/17 00:18 DC 01/26/17 00:25 0.5 MG Lorazepam (Ativan Inj) 0.5 mg NOW STAT IV 01/26/17 00:53 01/26/17 00:54 DC 01/26/17 01:03 0.5 MG Procedure The patient was treated with Hydralazine HCl 10 mg IV, Ativan Inj 0.5 mg IV, Ordered Ativan Inj 0.5 mg IV. ECG Indication: other (hypertension) Rate (beats per minute): 74 Rhythm: normal sinus Findings: no acute ischemic change, no ectopy, other (Biphasic T wave in lateral leads) Comparison ECG Date: 11/26/16 Change: EKG Change: When compared to EKG done on 11/26/16, biphasic T waves in lateral leads are new. ED Course 2332: Past medical records reviewed. The patient was evaluated in room C5. A complete history and physical exam was performed. A twelve-lead EKG was obtained as described above. 2345: Ordered Hydralazine HCl 10 mg IV. The patient had chest x-ray as described above. 0017: Ordered Ativan Inj 0.5 mg IV. 0053: Ordered Ativan Inj 0.5 mg IV. 0141: I reevaluated the patient and she is feeling much better. She is on Levaquin for her bronchitis from her PCP. She additionally notes that she was not taking her Medrol dose pack correctly. I discussed all the exam findings with her and I discussed the treatment plan with her. She verbalized complete understanding and agreement. She is ready to go home. Medical Decision The patient is a 76 year old female who presents to the ED with hypertension. Differential diagnosis includes anxiety, depression, bronchitis, pneumonia, COPD exacerbation, hypertensive crisis Lab interpretation: No leukocytosis, stable H&H, normal renal function, glucose 132, normal BNP, negative cardiac enzymes. This is a 76-year-old male patient who presents to the emergency department with increased shortness of breath and hypertension. She has a history of COPD and is currently being treated for bronchitis by her PCP with a Medrol Dosepak and Levaquin. The patient became more concerned this evening when she noted that her blood pressure had gone up despite taking her carvedilol. While in the emergency department, the patient was not hypoxic or did not appear short of breath. Her blood pressure was moderately elevated. She was given an IV dose of hydralazine which brought the blood pressure down nicely. She received 2 doses of Ativan for her obvious anxiety. The patient voices concerns that she is unable to get out of her house like she used to and she feels very lonely and depressed. She denies any suicidal ideation. The patient was reassured by her visit here in the emergency department. There is a questionable finding of the left lung base. However, the patient is already taking Levaquin. I would not change anything at this time. I've asked her follow up with her PCP if she has any persistent symptoms. Impression Primary Impression: Bronchitis Additional Impression: Hypertension Scribe Attestation The scribe's documentation has been prepared under my direction and personally reviewed by me in its entirety. I confirm that the note above accurately reflects all work, treatment, procedures, and medical decision making performed by me. Departure Information Dispostion Home / Self-Care Referrals Ryan Lucia M.D. (PCP) Forms HOME CARE DOCUMENTATION FORM, IMPORTANT VISIT INFORMATION, WORK / SCHOOL INSTRUCTIONS Patient Instructions ED Bronchitis Abx Tx, Hypertension Control, My [facility] Additional Instructions Watch your BP closely at home Take Levaquin as directed. Stop the steroids Return to the ER for worsening symptoms Problem Qualifiers
[2017-01-26 00:17] LABS: BASO % 0.3 %; BASO ABS # 0.02 K/uL (0-0.2); COMPLETE YES; EOS % 0.9 %; HEMATOCRIT 35.8 % (37-47); IG% 0.3 %; LYMPH % 16.7 %; LYMPH ABS # 0.98 K/uL (1.2-3.4); MEAN CORPUSCULAR HEMOGLOBIN 29.5 pg (25-34); MEAN CORPUSCULAR HGB CONC 34.6 g/dl (32-36); MEAN PLATELET VOLUME 9.1 fL (7.4-10.4); MONO % 10.1 %; NEUT % 71.7 %; PLATELET COUNT 268 K/uL (130-400); RED BLOOD COUNT 4.21 M/uL (4.2-5.4); WHITE BLOOD COUNT 5.86 K/uL (4.8-10.8)
[2017-01-26] MEDS ORDERED: LORAZEPAM 2 MG/ML 1 ML VIAL IV STA ×2 (00:17→00:53)
[2017-01-26 00:35] LABS: BLOOD UREA NITROGEN 15 mg/dl (7-18); BUN/CREATININE RATIO 21.1 (10-20); CALCIUM 8.6 mg/dl (8.5-10.1); CARBON DIOXIDE 29 mmol/L (21-32); CHLORIDE 95 mmol/L (98-107); GLUCOSE 132 mg/dl (70-99); SODIUM 133 mmol/L (136-145)
[2017-01-26 00:40] LABS: CKMB/CK RATIO 2.4 (0-3.0)
[2017-01-26 01:40] VITALS: BP 175/84; PULSE 86; O2SAT 93
--- NOTE | 2017-01-26 07:24 | DIAGNOSTIC IMAGING REPORT ---
CHEST 2 VIEWS ROUTINE CLINICAL HISTORY: cough COMPARISON STUDY: 12/26/2016 FINDINGS: There is severe pulmonary emphysema. The heart is normal in size. There is no failure. There is no focal pulmonary consolidation. No pleural effusions are visualized.[ A nodular opacity at the left lung base, likely represents a summation IMPRESSION: Emphysema. No evidence of focal pulmonary consolidation. Electronically signed by: Jatinder Cage M.D. 01/26/2017 7:23 AM Dictated Date/Time: 01/26/2017 7:22 AM
== END 2017-01-26 02:10 | disposition home or self-care (01) ==
LOC: C.EDB 21:39 → C.EDC 01-26 02:10
DX: J40 Bronchitis, not specified as acute or chronic (principal); I10 Essential (primary) hypertension; Z90.49 Acquired absence of other specified parts of digestive tract; F41.9 Anxiety disorder, unspecified; J44.9 Chronic obstructive pulmonary disease, unspecified; Z90.710 Acquired absence of both cervix and uterus; Z90.10 Acquired absence of unspecified breast and nipple; I25.2 Old myocardial infarction; Z85.3 Personal history of malignant neoplasm of breast; Z87.01 Personal history of pneumonia (recurrent); Z87.891 Personal history of nicotine dependence; Z79.82 Long term (current) use of aspirin; Z88.0 Allergy status to penicillin; Z88.5 Allergy status to narcotic agent; Z88.1 Allergy status to other antibiotic agents; Z88.2 Allergy status to sulfonamides; Z82.3 Family history of stroke; Z82.49 Family history of ischemic heart disease and other diseases of the circulatory system; Z80.0 Family history of malignant neoplasm of digestive organs; Z83.6 Family history of other diseases of the respiratory system

== ENCOUNTER 2017-02-20 14:18 | Observation (INO) | payer OTHER ==
[~2017-02-20] VITALS: Ht 157.5 cm; Wt 38.6 kg
[~2017-02-20 14:18] MED LIST changes: -ALBU0.08 INH; +ALBU18002 INH; -ALBU1AER9 INH; -LDDP5 TD; +SPRIN/30 INH; -TIOTCAP INH; -VITA400C15 PO; +VITA400C3 PO
[2017-02-20] MEDS ORDERED: SODIUM CHLORIDE 0.9% 1000ML 1,000 ML IV STA (14:46)
[2017-02-20] MEDS ORDERED: LABETALOL HCL IV 5 MG/ML 20ML IV STA ×3 (14:46→17:11)
[2017-02-20] MEDS ORDERED: ALBUT/IPRATROP 3MG/0.5MG NEB 3 ML VIAL INH STA (14:46)
--- NOTE | 2017-02-20 14:48 | EMERGENCY ROOM VISIT NOTE ---
History Report prepared by Ben: Abelino Luther Under the Supervision of: Dr. Mick Iyer M.D. First contact with patient: 14:37 Chief Complaint: SHORTNESS OF BREATH Stated Complaint: SOB, ELEVATED BP Nursing Triage Summary: pt to [facility] ED with c/o soba nd hypertension took bp meds today no cough History of Present Illness The patient is a 76 year old female who presents to the Emergency Room with complaints of worsening hypertension that started a couple days ago. She says that she has been here for elevated blood pressure in the past. The patient states that when her blood pressure spikes, she gets short of breath. The patient has IBS and went to a buffet 2 days ago, and says that she ate foods that she should not have eaten and she ran around a lot. She was eating leftover meatloaf yesterday, and had a couple episodes of bad diarrhea. She checked her blood pressure at that time and it was in the 190s. Her diarrhea eased up, but her high blood pressure stayed in the 190s into today. Her blood pressure peaked at 198 prior to arrival, so she decided she needed to come here. The patient also notes that she has been having a headache, and took 2 Aleve yesterday, with no relief. She says that she usually takes Tylenol, but she ran out of it. She denies any new cough or leg swelling. The patient is an ex-smoker, and has COPD. She has not been using her breathing treatments the last few days. She has no history of blood clots. Source of History: patient Onset: A couple days ago Position: other (global - high blood pressure) Symptom Intensity: peaked at 198 Timing: worsening Associated Symptoms: + SOB, + diarrhea (easing up), + headache, No cough Note: Associated symptoms: Denies leg swelling. Review of Systems See HPI for pertinent positives & negatives. A total of 10 systems reviewed and were otherwise negative. 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 Family History FH: cancer (pancreatic) FH: heart disease FH: lung disease (coal worker's pneumoconiosis) Stroke Social History Smoking Status: Former Smoker Alcohol Use: none Drug Use: none Marital Status: Housing Status: lives alone Occupation Status: retired Current/Historical Medications Scheduled Aspirin (Aspirin Ec), 81 MG PO DAILY Buspirone Hcl (Buspirone Hcl), 10 MG PO TID Carvedilol (Carvedilol), 12.5 TAB PO BID Cholecalciferol (Vitamin D), 1 TAB PO QAM Clonazepam (Klonopin), 1.5 MG PO HS Cyanocobalamin (Vitamin B-12), 1,000 MCG PO QAM Dicyclomine Hcl (Dicyclomine Hcl), 20 MG PO TID Fluoxetine (Prozac), 10 MG PO QAM Magnesium Oxide (Mg Supplement (Magnesium), 500 MG PO DAILY Pantoprazole Sodium (Protonix), 40 MG PO QAM Probiotic Product (Probiotic), 2 CAP PO DAILY Sucralfate (Sucralfate), 1 GM PO BID Tiotropium [place] (Spiriva Handihaler), 1 CAP INH DAILY Vitamin E (Vitamin E 400 Iu), 400 INTER.UNIT PO DAILY Scheduled PRN Albuterol Sulfate (Proair Respiclick), 1-2 PUFFS INH Q4H PRN for Shortness of Breath Fluticasone Propionate (Nasal) (Flonase Allergy Relief), 2 SPRAYS LAUREN BID PRN for NEEDED Ondansetron Hcl (Zofran), 4 MG PO QID PRN for Nausea Tramadol (Ultram), 50-100 MG PO Q6H PRN for Pain Allergies Coded Allergies: Methylprednisolone (Verified Allergy, Severe, COUGHING, SHORTNESS OF BREATH, 02/20/17) Penicillins (Verified Allergy, Intermediate, RASH/NAUSEA, 02/20/17) Dexamethasone (Verified Allergy, Unknown, UNSURE OF REACTION, 02/20/17) Iodinated Diagnostic Agents (Verified Allergy, Unknown, SHAKY AND FEELS LIKE WILL PASS OUT, 02/20/17) Morphine (Verified Adverse Reaction, Severe, vomitting, 02/20/17) Clindamycin (Verified Adverse Reaction, Mild, GI SYMPTOMS, 02/20/17) STOMACH CRAMPS-FLARE OF IBS Diazepam (Verified Adverse Reaction, Mild, FEELS MANIC WHEN TAKES, 02/20/17 ) Erythromycin (Verified Adverse Reaction, Mild, GI SYMPTOMS, 02/20/17) Oxycodone (Verified Adverse Reaction, Mild, HALLUCINATE, 02/20/17) Tetracyclines (Verified Adverse Reaction, Mild, N/V, 02/20/17) Diphenhydramine (Verified Adverse Reaction, Unknown, HALLUCINATION, ) Lactose Intolerance (Verified Adverse Reaction, Unknown, IBS, 02/20/17) Levofloxacin (Verified Adverse Reaction, Unknown, HAS BLEEDING FROM IV SITE, PO OK, NOT IV, 02/20/17) PT STATED THAT SHE'S OKAY TO TAKE LEVAQUIN ORAL BUT NOT IV Sulfamethoxazole w/Trimethoprim (Verified Adverse Reaction, Unknown, N/V, 02/20/17) Physical Exam Vital Signs Date Time Temp Pulse Resp B/P Pulse Ox O2 Delivery O2 Flow Rate FiO2 02/20/17 17:39 73 20 175/69 99 Nasal Cannula 2.0 02/20/17 16:49 65 20 163/75 99 Nasal Cannula 2.0 02/20/17 15:53 69 18 208/95 94 Room Air 02/20/17 15:35 72 02/20/17 15:20 94 Room Air 02/20/17 14:23 36.9 73 18 198/102 93 Room Air Physical Exam GENERAL: Patient is anxious appearing and in no acute distress. HEENT: No acute trauma, normocephalic atraumatic, mucous membranes moist, no nasal congestion, no scleral icterus. NECK: No stridor, no adenopathy, no meningismus, trachea is midline. LUNGS: Mild diffuse wheezing. HEART: Regular rate and rhythm. No murmurs, rubs, gallops appreciated. ABDOMEN: Soft, nontender, bowel sounds positive, no masses appreciated, no peritonitis. BACK: No midline tenderness, no CVA tenderness EXTREMITIES: Normal motion all extremities, no cyanosis, no edema. NEUROLOGIC: Alert and oriented, no acute motor or sensory deficits, no focal weakness, cranial nerves grossly intact. SKIN: No rash, no jaundice, no diaphoresis. Medical Decision & Procedures ER Provider Diagnostic Interpretation: X ray results are stated below per my interpretation and the radiologist's interpretation. CHEST ONE VIEW PORTABLE CLINICAL HISTORY: slob dyspnea COMPARISON STUDY: 01/26/2017 FINDINGS: Emphysematous change. Pulmonary hyperaeration. No acute infiltrate. Chronic bladder calcifications bilaterally. IMPRESSION: Emphysematous change. No acute process. Electronically signed by: Vern Mc M.D. 02/20/2017 2:58 PM Dictated Date/Time: 02/20/2017 2:57 PM Laboratory Results 02/20/17 15:10 Red Blood Count 4.12, Mean Corpuscular Volume 89.8, Mean Corpuscular Hemoglobin 29.6, Mean Corpuscular Hemoglobin Concent 33.0, Mean Platelet Volume 8.8, Neutrophils (%) (Auto) 61.5, Lymphocytes (%) (Auto) 23.4, Monocytes (%) (Auto) 10.6, Eosinophils (%) (Auto) 4.0, Basophils (%) (Auto) 0.5, Neutrophils # (Auto ) 2.44, Lymphocytes # (Auto) 0.93, Monocytes # (Auto) 0.42, Eosinophils # (Auto ) 0.16, Basophils # (Auto) 0.02 02/20/17 15:10 Test 02/20/17 15:10 White Blood Count 3.97 K/uL (4.8-10.8) Red Blood Count 4.12 M/uL (4.2-5.4) Hemoglobin 12.2 g/dL (12.0-16.0) Hematocrit 37.0 % (37-47) Mean Corpuscular Volume 89.8 fL (80-100) Mean Corpuscular Hemoglobin 29.6 pg (25-34) Mean Corpuscular Hemoglobin Concent 33.0 g/dl (32-36) Platelet Count 233 K/uL (130-400) Mean Platelet Volume 8.8 fL (7.4-10.4) Neutrophils (%) (Auto) 61.5 % Lymphocytes (%) (Auto) 23.4 % Monocytes (%) (Auto) 10.6 % Eosinophils (%) (Auto) 4.0 % Basophils (%) (Auto) 0.5 % Neutrophils # (Auto) 2.44 K/uL (1.4-6.5) Lymphocytes # (Auto) 0.93 K/uL (1.2-3.4) Monocytes # (Auto) 0.42 K/uL (0.11-0.59) Eosinophils # (Auto) 0.16 K/uL (0-0.5) Basophils # (Auto) 0.02 K/uL (0-0.2) RDW Standard Deviation 46.9 fL (36.4-46.3) RDW Coefficient of Variation 14.2 % (11.5-14.5) Immature Granulocyte % (Auto) 0.0 % Immature Granulocyte # (Auto) 0.00 K/uL (0.00-0.02) Prothrombin Time 10.7 SECONDS (9.0-12.0) Prothromb Time International Ratio 1.0 (0.9-1.1) Activated Partial Thromboplast Time 28.3 SECONDS (21.0-31.0) Partial Thromboplastin Ratio 1.1 Anion Gap 6.0 mmol/L (3-11) Est Creatinine Clear Calc Drug Dose 40.6 ml/min Estimated GFR () 100.2 Estimated GFR (Non- 86.4 BUN/Creatinine Ratio 13.4 (10-20) Calcium Level 9.1 mg/dl (8.5-10.1) Troponin I < 0.015 ng/ml (0-0.045) Laboratory results as reviewed by me. Medications Administered Medications (Trade) Dose Ordered Sig/Ar Route Start Time Stop Time Status Last Admin Dose Admin Albuterol/ Ipratropium (Duoneb) 3 ml NOW STAT INH 02/20/17 14:46 02/20/17 14:48 DC 02/20/17 15:18 3 ML Labetalol HCl 10 mg 10 mg NOW STAT IV 02/20/17 14:46 02/20/17 14:48 DC 02/20/17 15:18 10 MG Sodium Chloride (Nss 1000ml) 1,000 ml @ 999 mls/hr Q1H1M STAT IV 02/20/17 14:46 02/20/17 15:46 DC 02/20/17 15:19 999 MLS/HR Labetalol HCl (Normodyne IV) 20 mg NOW STAT IV 02/20/17 15:44 02/20/17 15:45 DC 02/20/17 16:29 20 MG Lorazepam (Ativan Tab) 1 mg NOW STAT SL 02/20/17 16:39 02/20/17 16:40 DC 02/20/17 16:54 1 MG Labetalol HCl 20 mg 20 mg NOW STAT IV 02/20/17 17:11 02/20/17 17:12 DC 02/20/17 17:11 20 MG Sodium Chloride (Nss 1000ml) 1,000 ml @ 80 mls/hr [id number] IV 02/20/17 17:57 02/21/17 16:35 DC 02/21/17 06:27 80 MLS/HR Acetaminophen (Tylenol Tab) 650 mg Q4H PRN PO 02/20/17 18:00 02/21/17 16:35 DC 02/21/17 03:50 650 MG Lorazepam (Ativan Tab) 0.5 mg Q8H PRN PO 02/20/17 18:00 02/21/17 16:35 DC 02/21/17 10:51 0.5 MG ECG Indication: SOB/dyspnea Rate (beats per minute): 69 Rhythm: normal sinus Findings: no acute ischemic change, no ectopy ED Course 1438: The patient was evaluated in room A9B. A complete history and physical exam was performed. 1446: Ordered NSS 1000 ml @ 999 mls/hr IV, Normodyne IV 10 mg IV, Duoneb 3 ml INH. 1544: Ordered Normodyne IV 20 mg IV. 1607: I reevaluated the patient and she still has a mild headache and is still hypertensive, so I ordered a second dose of blood pressure medication. 1639: Ordered Ativan Tab 1 mg SL. 1710: Upon reevaluation, the patient's anxiety is much improved but her repeat blood pressure is 195/100. Discussed results and treatment plan with the patient. She verbalized understanding and agreement with the treatment plan. The patient will be evaluated for further management. 1715: I discussed the patient with Dr. Michel WAGONER checkman - he will evaluate the patient for further treatment. Medical Decision Differential: Infectious, Reactive Airway Disease, Pneumonia, Pneumothorax, COPD , CHF, ACS, Pulmonary Embolism, MSK, GI, Dissection, amongst other etiologies entertained. 76 yr old anxious female arrives for evaluation of hypertension. SHOB on initial exam likely secondary to her avoiding her nebs with concern of HTN. SHOB improved with above. HTN persistent despite three rounds IV labetalol. Will have hospitalist evaluation for for treatment. She does not have evidence of end-organ damage at this time other than she does have mild headache. Consults Time Called: 1710 Consulting Physician: Dr. Michel WAGONER checkman Returned Call: [phone] I discussed the patient with Dr. Michel WAGONER checkman - he will evaluate the patient for further treatment. Impression Primary Impression: Hypertensive emergency Additional Impressions: SOB (shortness of breath) Anxiety Scribe Attestation The scribe's documentation has been prepared under my direction and personally reviewed by me in its entirety. I confirm that the note above accurately reflects all work, treatment, procedures, and medical decision making performed by me. Departure Information Dispostion Being Evaluated By Hospitalist Referrals No Doctor, Assigned (PCP) Patient Instructions My [facility] Problem Qualifiers
--- NOTE | 2017-02-20 15:00 | DIAGNOSTIC IMAGING REPORT ---
CHEST ONE VIEW PORTABLE CLINICAL HISTORY: slob dyspnea COMPARISON STUDY: 01/26/2017 FINDINGS: Emphysematous change. Pulmonary hyperaeration. No acute infiltrate. Chronic bladder calcifications bilaterally. IMPRESSION: Emphysematous change. No acute process. Electronically signed by: Vern Mc M.D. 02/20/2017 2:58 PM Dictated Date/Time: 02/20/2017 2:57 PM
[2017-02-20 15:22] LABS: BASO % 0.5 %; BASO ABS # 0.02 K/uL (0-0.2); COMPLETE YES; LYMPH % 23.4 %; LYMPH ABS # 0.93 K/uL (1.2-3.4); MEAN CELL VOLUME 89.8 fL (80-100); MEAN CORPUSCULAR HEMOGLOBIN 29.6 pg (25-34); MEAN PLATELET VOLUME 8.8 fL (7.4-10.4); MONO % 10.6 %; NEUT % 61.5 %; PLATELET COUNT 233 K/uL (130-400); RED BLOOD COUNT 4.12 M/uL (4.2-5.4); WHITE BLOOD COUNT 3.97 K/uL (4.8-10.8)
[2017-02-20] MEDS ORDERED: TRAM-10 PO (15:29)
[2017-02-20 15:37] LABS: BLOOD UREA NITROGEN 9 mg/dl (7-18); BUN/CREATININE RATIO 13.4 (10-20); CALCIUM 9.1 mg/dl (8.5-10.1); CARBON DIOXIDE 33 mmol/L (21-32); CHLORIDE 102 mmol/L (98-107); CREATININE 0.66 mg/dl (0.60-1.20); GLUCOSE 93 mg/dl (70-99); POTASSIUM 3.8 mmol/L (3.5-5.1); SODIUM 141 mmol/L (136-145)
[2017-02-20] MEDS ORDERED: LORAZEPAM 1 MG TAB SL STA (16:39)
[2017-02-20] MEDS ORDERED: ONDANSETRON 4 MG TAB PO PRN (18:00)
[2017-02-20] MEDS ORDERED: ONDANSETRON INJ 2 MG/ML 2 ML VIAL IV PRN (18:00)
[2017-02-20] MEDS ORDERED: TRAMADOL HCL 50 MG TAB PO PRN (18:00)
[2017-02-20] MEDS ORDERED: ACETAMINOPHEN 325 MG TAB PO PRN (18:00)
[2017-02-20] MEDS ORDERED: NITROGLYCERIN 0.4 MG SL PER TAB CHARGE SL PRN (18:00)
[2017-02-20] MEDS ORDERED: POLYETHYLENE (MIRALAX) 17 GM PACK PO PRN (18:00)
[2017-02-20] MEDS ORDERED: FLUTICASONE PROPIONATE NA SPR 16 GM BTL NAE PRN (18:00)
[2017-02-20] MEDS ORDERED: LABETALOL HCL IV 5 MG/ML 20ML IV PRN (18:00)
[2017-02-20 18:23] VITALS: O2SAT 99; Ht 157.5 cm; Wt 38.6 kg
--- NOTE | 2017-02-20 18:33 | History and Physical ---
History & Physical Date & Time of Service: Feb 20, 2017 at 18:09 Chief Complaint: Sob, Elevated Bp Primary Care Physician: Ryan Lucia M.D. History of Present Illness Source: patient This is a 76 yo F with PMHx hypertension COPD, breast cancer s/p bilateral mastectomy (never received chemotherapy or radiation), history of CT, history of stroke, IBS, depression, anxiety, remote smoking history of 50 years 1-2 packs per day and quit 14 years ago, presenting to the ER with an elevated blood pressure and feeling of shortness of breath. Patient reports her blood pressure was elevated yesterday started around 5 PM. She attempted to decrease BP by thinking positive thoughts, deep breathing and slept. When this didn't work, she took an extra 6.25 mg carvedilol to total 18.75 mg in the evening, she states her blood pressure initially went down to around 140s, but then on recheck about an hour later systolic was back up near 200s. Of note, on Sunday she ate a large amount of food including shrimp and foods with gluten which she normally avoids due to IBS history, and noticed loose stools 1 day. She reports that this is resolving and has only had 1 loose bowel movement today. The patient has not been nauseous or vomited. She denies feeling lightheaded or dizzy. She is extremely anxious during my exam, and reports several social circumstances causing her anxiety to be higher recently. In the ED she is requiring 2 L of oxygen, normally wears 1 L supplemental O2 at night, and her O2 sats = 98%. Blood pressure at bedside is 175/80s. CBC and BMP are essentially unremarkable. Chest x-ray was obtained showing emphysematous changes, no acute infiltrates. Past Medical/Surgical History Medical Problems: (1) Anxiety Status: Chronic (2) Benign hypertension Status: Chronic (3) Bronchitis Status: Resolved (4) Bronchoscopy Status: Resolved (5) Carcinoma of breast Status: Resolved (6) Chronic obstructive lung disease Status: Chronic (7) Chronic obstructive pulmonary disease Status: Chronic (8) COPD (chronic obstructive pulmonary disease) Status: Chronic (9) Hysterectomy Status: Resolved (10) mastectomy Status: Resolved (11) Myocardial infarction Status: Chronic (12) Pneumonia Status: Resolved (13) Ulnar nerve entrapment Status: Resolved Family History FH: cancer (pancreatic) FH: heart disease FH: lung disease (coal worker's pneumoconiosis) Stroke Social History Smoking Status: Former Smoker Smokeless Tobacco Use: No Alcohol Use: none Drug Use: none Marital Status: , Housing status: lives alone 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) Immunizations History of Influenza Vaccine: Yes Influenza Vaccine Date: Oct 13, 2013 History of Tetanus Vaccine?: Yes Tetanus Immunization Date: Nov 03, 2008 History of Pneumococcal: Yes Pneumococcal Date: Jul 04, 2013 History of Hepatitis B Vaccine: No Multi-Drug Resistant Organisms History of MDRO: No Allergies Coded Allergies: Methylprednisolone (Verified Allergy, Severe, COUGHING, SHORTNESS OF BREATH, 02/20/17) Penicillins (Verified Allergy, Intermediate, RASH/NAUSEA, 02/20/17) Dexamethasone (Verified Allergy, Unknown, UNSURE OF REACTION, 02/20/17) Iodinated Diagnostic Agents (Verified Allergy, Unknown, SHAKY AND FEELS LIKE WILL PASS OUT, 02/20/17) Morphine (Verified Adverse Reaction, Severe, vomitting, 02/20/17) Clindamycin (Verified Adverse Reaction, Mild, GI SYMPTOMS, 02/20/17) STOMACH CRAMPS-FLARE OF IBS Diazepam (Verified Adverse Reaction, Mild, FEELS MANIC WHEN TAKES, 02/20/17 ) Erythromycin (Verified Adverse Reaction, Mild, GI SYMPTOMS, 02/20/17) Oxycodone (Verified Adverse Reaction, Mild, HALLUCINATE, 02/20/17) Tetracyclines (Verified Adverse Reaction, Mild, N/V, 02/20/17) Diphenhydramine (Verified Adverse Reaction, Unknown, HALLUCINATION, ) Lactose Intolerance (Verified Adverse Reaction, Unknown, IBS, 02/20/17) Levofloxacin (Verified Adverse Reaction, Unknown, HAS BLEEDING FROM IV SITE, PO OK, NOT IV, 02/20/17) PT STATED THAT SHE'S OKAY TO TAKE LEVAQUIN ORAL BUT NOT IV Sulfamethoxazole w/Trimethoprim (Verified Adverse Reaction, Unknown, N/V, 02/20/17) Home Medications Scheduled Aspirin (Aspirin Ec), 81 MG PO DAILY Buspirone Hcl (Buspirone Hcl), 10 MG PO TID Carvedilol (Carvedilol), 12.5 TAB PO BID Cholecalciferol (Vitamin D), 1 TAB PO QAM Clonazepam (Klonopin), 1.5 MG PO HS Cyanocobalamin (Vitamin B-12), 1,000 MCG PO QAM Dicyclomine Hcl (Dicyclomine Hcl), 20 MG PO TID Fluoxetine (Prozac), 10 MG PO QAM Magnesium Oxide (Mg Supplement (Magnesium), 500 MG PO DAILY Pantoprazole Sodium (Protonix), 40 MG PO QAM Probiotic Product (Probiotic), 2 CAP PO DAILY Sucralfate (Sucralfate), 1 GM PO BID Tiotropium [place] (Spiriva Handihaler), 1 CAP INH DAILY Vitamin E (Vitamin E 400 Iu), 400 INTER.UNIT PO DAILY Scheduled PRN Albuterol Sulfate (Proair Respiclick), 1-2 PUFFS INH Q4H PRN for Shortness of Breath Fluticasone Propionate (Nasal) (Flonase Allergy Relief), 2 SPRAYS LAUREN BID PRN for NEEDED Ondansetron Hcl (Zofran), 4 MG PO QID PRN for Nausea Tramadol (Ultram), 50-100 MG PO Q6H PRN for Pain Review of Systems Constitutional: No chills, No fatigue, No fever, No sweats, No weight loss Eyes: No diplopia, No redness ENT: No sore throat, No tinnitus, No trouble swallowing, No unusual epistaxis Respiratory: No cough, No dyspnea at rest, No dyspnea on exertion Cardiovascular: No chest pain, No palpitations Abdomen: + diarrhea, + problem reported (abdominal cramping), No constipation, No nausea, No pain, No vomiting Musculoskeletal: No calf pain, No joint pain, No swelling Genitourinary - Female: No dysuria Neurologic: No balance problems, No numbness/tingling Psychiatric: + anxiety, + depression symptoms Endocrine: No fatigue Integumentary: No itch, No rash Physical Exam Vital Signs Date Time Temp Pulse Resp B/P Pulse Ox O2 Delivery O2 Flow Rate FiO2 02/20/17 17:39 73 20 175/69 99 Nasal Cannula 2.0 02/20/17 16:49 65 20 163/75 99 Nasal Cannula 2.0 02/20/17 15:53 69 18 208/95 94 Room Air 02/20/17 15:35 72 02/20/17 15:20 94 Room Air 02/20/17 14:23 36.9 73 18 198/102 93 Room Air General Appearance: WD/WN, no apparent distress, + thin (underweight) Head: normocephalic, atraumatic Eyes: PERRL, EOMI ENT: hearing grossly normal, pharynx normal, + pertinent finding (mucous membranes dry) Neck: supple, no JVD Respiratory/Chest: chest non-tender, no respiratory distress, no accessory muscle use, + pertinent finding (+ bilateral mastectomy , on 2 L O2 via NC, + breath sounds are coarse throughout, no adventitious breath sounds, no wheeze, no rhonchi.) Cardiovascular: regular rate, rhythm, no JVD, no murmur, normal peripheral pulses Abdomen/GI: normal bowel sounds, non tender, soft Back: normal inspection Extremities/Musculoskelatal: no calf tenderness, no pedal edema Neurologic/Psych: alert, oriented x 3, + pertinent finding (anxious, labile affect, appears to have borderline personality great praise toward specific physicians and great dislike towards others) Skin: normal color, warm/dry, + pertinent finding (actinic keratoses over several areas of back ) Diagnostics Laboratory Results Results Past 24 Hours Test 02/20/17 15:10 Range/Units White Blood Count 3.97 4.8-10.8 K/uL Red Blood Count 4.12 4.2-5.4 M/uL Hemoglobin 12.2 12.0-16.0 g/dL Hematocrit 37.0 37-47 % Mean Corpuscular Volume 89.8 80-100 fL Mean Corpuscular Hemoglobin 29.6 25-34 pg Mean Corpuscular Hemoglobin Concent 33.0 32-36 g/dl Platelet Count 233 130-400 K/uL Mean Platelet Volume 8.8 7.4-10.4 fL Neutrophils (%) (Auto) 61.5 % Lymphocytes (%) (Auto) 23.4 % Monocytes (%) (Auto) 10.6 % Eosinophils (%) (Auto) 4.0 % Basophils (%) (Auto) 0.5 % Neutrophils # (Auto) 2.44 1.4-6.5 K/uL Lymphocytes # (Auto) 0.93 1.2-3.4 K/uL Monocytes # (Auto) 0.42 0.11-0.59 K/uL Eosinophils # (Auto) 0.16 0-0.5 K/uL Basophils # (Auto) 0.02 0-0.2 K/uL RDW Standard Deviation 46.9 36.4-46.3 fL RDW Coefficient of Variation 14.2 11.5-14.5 % Immature Granulocyte % (Auto) 0.0 % Immature Granulocyte # (Auto) 0.00 0.00-0.02 K/uL Sodium Level 141 136-145 mmol/L Potassium Level 3.8 3.5-5.1 mmol/L Chloride Level 102 98-107 mmol/L Carbon Dioxide Level 33 21-32 mmol/L Anion Gap 6.0 3-11 mmol/L Blood Urea Nitrogen 9 7-18 mg/dl Creatinine 0.66 0.60-1.20 mg/dl Est Creatinine Clear Calc Drug Dose 40.6 ml/min Estimated GFR () 100.2 Estimated GFR (Non- 86.4 BUN/Creatinine Ratio 13.4 10-20 Random Glucose 93 70-99 mg/dl Calcium Level 9.1 8.5-10.1 mg/dl Troponin I < 0.015 0-0.045 ng/ml Diagnostic Radiology CHEST ONE VIEW PORTABLE CLINICAL HISTORY: slob dyspnea COMPARISON STUDY: 01/26/2017 FINDINGS: Emphysematous change. Pulmonary hyperaeration. No acute infiltrate. Chronic bladder calcifications bilaterally. IMPRESSION: Emphysematous change. No acute process. Electronically signed by: Vern Mc M.D. 02/20/2017 2:58 PM Dictated Date/Time: 02/20/2017 2:57 PM The status of this report is Signed. EKG Vent. rate 69 BPM [place] interval 144 ms QRS duration 68 ms QT/QTc 416/445 ms P-R-T axes 84 78 79 Normal sinus rhythm, no ST wave inversions signs of ischemia, previous septal infarct Impression Assessment and Plan This is a 76 yo F with PMHx hypertension, COPD, breast cancer s/p bilateral mastectomy (never received chemotherapy or radiation), history of CT, history of stroke, IBS, depression, anxiety, remote smoking history of 50 years 1-2 packs per day and quit 14 years ago, presenting to the ER with an elevated blood pressure and feeling of shortness of breath. Hypertensive urgency - Admit to telemetry for observation - Initial troponin is negative, no need to trend further sets - Labetalol 20 mg IV when necessary for SBP >160 or DBP >110 - EKG was reviewed and is negative for ischemic changes - CXR reviewed showing emphysematous changes - Continue on home carvedilol 12.5 twice a day- can consider increasing evening dosage to 18.75mg dosing. Consider cardiology consult if worsening BP overnight. COPD - Cont home inhalers, Spriva and Proair. - Will add duonebs QID and Q2H prn for shortness of breath with coarse breath sounds and increased O2 need. - Can titrate supplemental O2 to 88-92% - Normally wears 1 L QHS, none during the day or exertion due to her refusal to wear it. Anxiety Depression - Likely playing a major role in patient's elevated blood pressure currently, she states she has many social circumstances which have made her more anxious. - Continue home meds including: BuSpar 10 mgTID, Klonopin 1.5 mg QHS, Prozac 10 mg QAM, and will add on Ativan 0.5 mg PO Q8H prn for anxiety - patient was administered 1 mg IV in the ER but made her drowsy Irritable bowel syndrome - Continue on Protonix 40 mg QAM, probiotics, sucralfate 1 g BID, creon 2 cap TID - Likely her diarrhea was due to the diet she consumed on Sunday, this is resolving no need for Imodium. If continues then would check stool studies and a cdiff. History of breast cancer - S/p bilateral mastectomy DVT prophylaxis: Teds, SCD, Lovenox 30 subq CODE STATUS: Full code Disposition: From home, lives alone, will ask CM to assist with discharge planning, likely can DC tomorrow. Level of Care Telemetry Resuscitation Status FULL RESUSCITATION VTE Prophylaxis VTE Risk Assessment Done? Y/N: Yes Risk Level: Low Given or contraindicated: Enoxaparin (Lovenox)SQ, T.E.D. Stockings, SCD's
[2017-02-20 18:42] LABS: PARTIAL THROMBOPLASTIN RATIO 1.1; PROTHROMBIN TIME (PATIENT) 10.7 SECONDS (9.0-12.0)
[2017-02-20] MEDS ORDERED: IV FLUIDS COMPLETED PRN (18:45)
[2017-02-20] MEDS ORDERED: AMLODIPINE BESYLATE 5 MG TAB PO SCH (19:00)
[2017-02-20] MEDS: ALBUT/IPRATROP 3MG/0.5MG NEB 3 ML VIAL INH SCH (19:46)
[2017-02-20] MEDS: SODIUM CHLORIDE 0.9% 1000ML 1,000 ML IV SCH (19:56)
[2017-02-20 19:57] VITALS: PULSE 69; O2SAT 99
[2017-02-20 20:00] VITALS: O2SAT 98
[2017-02-20] MEDS ORDERED: ENOXAPARIN 30 MG/0.3 ML SYR SC SCH (21:00)
[2017-02-20] MEDS ORDERED: CLONAZEPAM 1 MG TAB PO SCH (21:00)
[2017-02-20] MEDS: SUCRALFATE 1 GM TAB PO SCH (21:20)
[2017-02-20] MEDS: CARVEDILOL 12.5 MG TAB PO SCH (21:24)
[2017-02-20] MEDS: DICYCLOMINE HCL 20 MG TAB PO SCH (21:24)
[2017-02-20 23:59] VITALS: O2SAT 98
[2017-02-21] VITALS (10 sets, daily range): BP systolic 113–138; BP diastolic 57–70; PULSE 61–86; TEMP 36.3–37; O2SAT 92–100
[2017-02-21] MEDS: LORAZEPAM 0.5 MG TAB PO PRN ×2 (03:51→10:51)
[2017-02-21] MEDS: SODIUM CHLORIDE 0.9% 1000ML 1,000 ML IV SCH (06:27)
[2017-02-21] MEDS: ALBUT/IPRATROP 3MG/0.5MG NEB 3 ML VIAL INH SCH ×3 (07:18→15:18)
[2017-02-21] MEDS: DICYCLOMINE HCL 20 MG TAB PO SCH ×2 (07:41→13:38)
[2017-02-21] MEDS: SUCRALFATE 1 GM TAB PO SCH (07:43)
[2017-02-21] MEDS: CARVEDILOL 12.5 MG TAB PO SCH (07:43)
[2017-02-21] MEDS ORDERED: AMLODIPINE BESYLATE 5 MG TAB PO SCH (09:00)
[2017-02-21] MEDS ORDERED: TOCOPHERYL, DL-ALPHA 400 INTER.UNIT CAP PO SCH (09:00)
[2017-02-21] MEDS ORDERED: TIOTROPIUM BROMIDE 5 PUFF/90 MCG INH INH SCH (09:00)
[2017-02-21] MEDS ORDERED: FLUOXETINE HCL 10 MG CAP PO SCH (09:00)
[2017-02-21] MEDS ORDERED: CYANOCOBALAMIN 500 MCG TAB (VIT B-12) PO SCH (09:00)
[2017-02-21] MEDS ORDERED: FLUOXETINE PO SCH (09:00)
[2017-02-21] MEDS ORDERED: CHOLECALCIFEROL 1000 INTER.UNIT TAB PO SCH (09:00)
[2017-02-21] MEDS ORDERED: PANTOprazole SOD 40 MG TAB PO SCH (09:00)
[2017-02-21] MEDS ORDERED: ASPIRIN 81 MG ECTAB PO SCH (09:00)
--- NOTE | 2017-02-21 13:54 | Discharge Instructions ---
Discharge Instructions Date of Service Feb 21, 2017. Admission Reason for Admission: Hypertensive Urgency Discharge Discharge Diagnosis / Problem: Anxiety Discharge Goals Goal(s): Improve disease control Activity Recommendations Activity Limitations: resume your previous activity . Instructions / Follow-Up Instructions / Follow-Up Primary care doctor in 1 week Current Hospital Diet Patient's current hospital diet: AHA Diet (Heart Healthy), Low Lactose Diet Discharge Diet Recommended Diet: AHA Diet (Heart Healthy) Pending Studies Studies pending at discharge: no Medical Emergencies . Who to Call and When: Medical Emergencies: If at any time you feel your situation is an emergency, please call 911 immediately. . Non-Emergent Contact Non-Emergency issues call your: Primary Care Provider . . "Provider Documentation" section prepared by Samson Mart. . VTE Core Measure Inpt VTE Proph given/why not?: Enoxaparin (Lovenox)ANGIE, TLinette Ponce, SCD's
--- NOTE | 2017-02-21 14:08 | CARDIOLOGY CONSULTATION ---
DATE OF CONSULTATION: 02/21/2017 TIME: 12:35 p.m. CONSULTING PHYSICIAN: Dr. Mart. REASON FOR CONSULTATION: Atypical chest pain. HISTORY OF PRESENT ILLNESS: Ms. Brock is a very pleasant 76-year-old female who we follow as an outpatient in cardiology clinic. She has a history of hypertension, dyslipidemia, severe COPD/emphysema, and presumed CAD based non-ST elevation myocardial infarction x2 during acute COPD and hypoxia. She has atypical chest pain syndromes as well. Her quality of life is also an impacted greatly by severe anxiety issues. She was admitted to [facility] with severe hypertension on 02/20/2017. She also admits to worsening shortness of breath. She has had several hospitalizations due to her severe pulmonary issues. She admits that she fell in September of 2016 and bruised the left side of her rib cage significantly. Since then, she has had atypical chest pain described as an intermittent left-sided chest discomfort, which occurs over a split second or so and then completely resolves. It tends to occur at rest, such as lying in bed. She was seen in the office on 02/16/2017 by Quirino Carlos for this atypical chest discomfort. It was not consistent with ischemic heart disease. She states that she has not had any further chest discomfort and did not present with any chest discomfort for this hospitalization. She has been more short of breath. She uses 1 liter of supplemental oxygen via nasal cannula more often than usual, which upsets her. She would like to be off of oxygen altogether. She has remained in her home for the past 6 months until this past weekend when she went [facility]. She went out to eat and consumed foods that typically upset her stomach. She has IBS. She then had significant diarrhea and abdominal cramping throughout the entire afternoon yesterday. With this, she noted that her blood pressure became more elevated in the afternoon. She took an additional 6.25 mg of carvedilol. She felt numb all over and was afraid to move due to the abdominal cramping. She continued to check her blood pressure multiple times throughout the day. In fact, she states that she would actually get out of bed and awakened from her sleep to check her blood pressure. She saw that her systolic blood pressure was up to 190 mmHg. She admits that this made her more and more anxious and she was afraid of having a stroke. She then came to the Emergency Department for further evaluation. In the Emergency Department, her blood pressure was as high as 208/95 mmHg. She was given amlodipine 5 mg at 20:47 p.m. She was also given IV labetalol 20 mg x2 and 10 mg x1 last evening/late afternoon. Otherwise, she has been continued on her home medication of Carvedilol 12.5 mg twice daily. Her blood pressure improved and has since normalized. She is concerned that she is having anxiety/panic attacks. She admits that she has been more short of breath ever since gallbladder surgery in September of 2016. She denies edema, syncope, near syncope, palpitations, melena, hematochezia, hematuria, or other bleeding. She denies fevers, chills or stroke symptoms. She is hoping to go home soon. She states that she has been having a lot of negative thoughts. She is trying to keep positive thinking, but is having a difficult time doing that at times. REVIEW OF SYSTEMS: As above and review of systems is otherwise negative. Her diarrhea is improving. PAST MEDICAL HISTORY: 1. Prior myocardial infarction in the setting of hypoxia with COPD exacerbations. She had declined coronary angiography. 2. Hypertension. 3. Dyslipidemia. 4. Atypical chest pain. 5. Anemia. 6. Anxiety. 7. COPD/emphysema on supplemental oxygen. 8. Fatigue. 9. Hyponatremia. 10. Breast cancer. 11. Pneumonia. 12. Pulmonary nodule. 13. Vitamin D deficiency. 14. IBS. CURRENT MEDICATIONS: Include amlodipine 5 mg daily, aspirin 81 mg daily, carvedilol 12.5 mg p.o. b.i.d., and Lovenox 30 mg subQ daily. However, she is refusing this medication. Prozac 10 mg daily, Protonix 40 mg daily, and normal saline 80 mL per hour. ALLERGIES AND INTOLERANCES: INCLUDE PERCOCET, PERCODAN, AMOXICILLIN, BENADRYL, CLINDAMYCIN, DEXAMETHASONE, ERYTHROMYCIN, IV CONTRAST, LEVOFLOXACIN, PENICILLIN, SULFA DRUGS AND VALIUM. SOCIAL HISTORY: Quit smoking approximately 2004 after approximately 40 pack years. Occasional alcohol. No drugs. She is . No children. She lives alone. 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 FAMILY HISTORY: No known premature CAD. Father had a stroke. Paternal grandmother had myocardial infarction. PHYSICAL EXAMINATION: VITAL SIGNS: Temperature is 37 degrees, heart rate 62 beats per minute, respiratory rate 21, blood pressure 138/70 mmHg, and oxygen saturation 98% on 2 liters per nasal cannula. Weight is 38.6 kg. GENERAL: In no acute distress. She is alert and oriented. She is very thin and appears emaciated. HEENT: Anicteric sclerae. NECK: No appreciable JVD. No bruits. Normal carotid upstrokes bilaterally. CARDIAC EXAM: No ventricular heave. PMI nondisplaced. Normal S1 and S2. No murmurs, rubs or gallops. Regular. LUNGS: Decreased breath sounds throughout. Otherwise clear. ABDOMEN: Soft and nondistended. There is mild tenderness throughout. No rebound tenderness. No palpable masses. Normoactive bowel sounds. No bruits noted. EXTREMITIES: No cyanosis or edema. 2+ radial pulses bilaterally. 2+ dorsalis pedis pulses bilaterally. PSYCHIATRIC: Affect appears appropriate. LABORATORY DATA: White blood cell count is 3.97, hemoglobin 37, and platelets 233. Sodium 141, potassium 3.8, BUN 9, and creatinine 0.66. Troponin undetectable x1. INR is 1. ECG upon presentation demonstrated normal sinus rhythm at 69 beats per minute. Possible septal infarct. Repeat ECG this morning, normal sinus rhythm at 61 beats per minute. Chest x-ray image personally reviewed. No infiltrate. No suggestion of heart failure. Radiology interpretation, emphysematous changes. No acute process. Telemetry personally reviewed. Sinus rhythm, no arrhythmia. ASSESSMENT AND PLAN: 1. Atypical chest pain: She has had atypical chest pain as an outpatient, but has not had any recent in the last couple days. She was seen last week in an outpatient office for this pain, which does not appear to be cardiac in nature. She has refused coronary angiography in the past. For this atypical pain that lasts for a split second while at rest, there is no further ischemic evaluation recommended at this time. She has not had any immediately prior to this hospitalization nor has she had any during this hospitalization. 2. Hypertension: Blood pressure was severely elevated and is now normotensive. In the past, she took an amlodipine 2.5 mg daily, but this was discontinued in 2014 due to orthostatic symptoms. She appears to be tolerating it now, however. Can continue carvedilol at current dose and amlodipine as tolerated. It is not clear why she became more acutely hypertensive; however, it could have been due to her irritable bowel syndrome/abdominal cramping with diarrhea and also her anxiety, which it does appear to be affecting her quality of life. 3. Dyslipidemia: She had been on statin therapy in the past, but this was discontinued in December of 2015 per other providers. High-intensity statin therapy would be recommended given her presumed coronary artery disease; however, her doses have been adjusted in the past. Apparently at this time, is not taking any statins. This can be readdressed as an outpatient going forward. 4. Presumed coronary artery disease: She has had myocardial infarction in the past in the setting of profound hypoxia, likely for prolonged periods of time. She has declined invasive diagnostic measures. Continue beta gem. Reconsider statin therapy. Continue aspirin 81 mg daily. She did not present with angina nor does she appear hypervolemic. 5. Disposition: No further inpatient cardiology testing recommended at this time. When discharge, she can follow up as an outpatient with her PCP and cardiology as scheduled. Thank for allowing me to participate in the care of Ms. Brock. Sincerely, GRACE
[2017-02-21 14:25] LABS: URINE APPEARANCE CLEAR (CLEAR); URINE BILIRUBIN NEG (NEG); URINE COLOR YELLOW; URINE EPITHELIAL CELL AUTO 0-5 /lpf (0-5); URINE NITRITE NEG (NEG); URINE PH 6.5 (4.5-7.5); URINE SPECIFIC GRAVITY 1.007 (1.000-1.030); UROBILINOGEN NEG (NEG); ZZUR CULT IF INDIC CLEAN CATCH NO
[2017-02-21 14:29] LABS: MANUAL MICROSCOPIC REQUIRED? NO; REVIEW REQ? NO
--- NOTE | 2017-02-21 16:39 | Palliative Care Consultation ---
Consultation Date of Consultation: Feb 21, 2017. Requesting Physician: Dr. Mart Attending Physician: Dr. Mart Reason for Consultation: POLST form completion History of Present Illness This 76 year old female patient presented to the ED yesterday with worsening shortness of breath. This patient has a history of COPD, CAD, NSTEMI, and others listed below. Apparently in the last 6 months the patient has been feeling worse, had a fall in September, shortness of breath is increasing (on home oxygen therapy), has atypical chest pain, and overall feels like her condition is worsening. Patient also has severe anxiety and panic attacks, which makes her COPD worse. The patient has declined any invasive procedures in the past and during this admission. The patient's goal is to stay out of the hospital and be comfortable. She has a living which states that in an end-stage medical condition, she would want anything but comfort measures. Palliative care consulted to do POLST form. I met with the patient in room 209. She is awake, alert and oriented x4; very pleasant woman. She appears to be slightly short of breath at rest, speaks in short sentences. She confirmed for me that she does in fact feel like her life is coming to an end. She is still independent, cares for herself, drives, and lives alone. However, she has felt more short of breath recently and feels that her overall condition is worsening. Her wish is to be at home, out of the hospital, and to be comfortable. She states that the only reason she came to the hospital is because she thought she was dying and she suddenly though of her nephew and her sister, and wasn't ready to leave them yet. Also, she has a fear of dying alone. I explained some options with her such as home health and hospice. She asked where she is with her chronic illnesses as far as prognosis. I encouraged her to talk with her PCP and specialist doctors about her conditions, as this was the first time we were meeting and she's only been here for a short stay. We discussed the POLST form and code status. Patient would not want CPR or intubation if found pulseless/breathless. POLST form as follows : DNR/DNI, comfort measures only, use or limitation of antibiotics with comfort as the goal, and trial of IVF only if indicated with comfort as the goal, no feeding tube. 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) Review of Systems Constitutional: No chills, No fever Respiratory: + cough, + dyspnea at rest, + dyspnea on exertion, + shortness of breath Cardiac: + chest pain (not at this time, but does have atypical chest pain at times), No edema Abdomen: No nausea, No pain, No vomiting Psychiatric: + anxiety, + depression symptoms Allergies Coded Allergies: Methylprednisolone (Verified Allergy, Severe, COUGHING, SHORTNESS OF BREATH, 02/20/17) Penicillins (Verified Allergy, Intermediate, RASH/NAUSEA, 02/20/17) Dexamethasone (Verified Allergy, Unknown, UNSURE OF REACTION, 02/20/17) Iodinated Diagnostic Agents (Verified Allergy, Unknown, SHAKY AND FEELS LIKE WILL PASS OUT, 02/20/17) Morphine (Verified Adverse Reaction, Severe, vomitting, 02/20/17) Clindamycin (Verified Adverse Reaction, Mild, GI SYMPTOMS, 02/20/17) STOMACH CRAMPS-FLARE OF IBS Diazepam (Verified Adverse Reaction, Mild, FEELS MANIC WHEN TAKES, 02/20/17 ) Erythromycin (Verified Adverse Reaction, Mild, GI SYMPTOMS, 02/20/17) Oxycodone (Verified Adverse Reaction, Mild, HALLUCINATE, 02/20/17) Tetracyclines (Verified Adverse Reaction, Mild, N/V, 02/20/17) Diphenhydramine (Verified Adverse Reaction, Unknown, HALLUCINATION, ) Lactose Intolerance (Verified Adverse Reaction, Unknown, IBS, 02/20/17) Levofloxacin (Verified Adverse Reaction, Unknown, HAS BLEEDING FROM IV SITE, PO OK, NOT IV, 02/20/17) PT STATED THAT SHE'S OKAY TO TAKE LEVAQUIN ORAL BUT NOT IV Sulfamethoxazole w/Trimethoprim (Verified Adverse Reaction, Unknown, N/V, 02/20/17) Medications Current Inpatient Medications Medications (Trade) Dose Ordered Sig/Ar Route Start Time Stop Time Status Last Admin Dose Admin Enoxaparin Sodium 30 mg 30 mg QPM SC 02/20/17 21:00 03/22/17 20:59 Sodium Chloride (Nss 1000ml) 1,000 ml @ 80 mls/hr [id number] IV 02/20/17 17:57 03/22/17 17:56 02/21/17 06:27 80 MLS/HR Acetaminophen (Tylenol Tab) 650 mg Q4H PRN PO 02/20/17 18:00 03/22/17 17:59 02/21/17 03:50 650 MG Ondansetron HCl (Zofran Inj) 4 mg Q6H PRN IV 02/20/17 18:00 03/22/17 17:59 Nitroglycerin (Nitrostat Tab) 0.4 mg UD PRN SL 02/20/17 18:00 03/22/17 17:59 Polyethylene (Miralax Powder Packet) 17 gm DAILY PRN PO 02/20/17 18:00 03/22/17 17:59 Aspirin (Ecotrin Tab) 81 mg DAILY PO 02/21/17 09:00 03/23/17 08:59 02/21/17 07:41 81 MG Carvedilol (Coreg Tab) 12.5 mg BID PO 02/20/17 21:00 03/22/17 20:59 02/21/17 07:43 12.5 MG Clonazepam (Klonopin Tab) 1.5 mg HS PO 02/20/17 21:00 03/22/17 20:59 02/20/17 21:32 1.5 MG Cyanocobalamin (Vitamin B-12 Tab) 1,000 mcg QAM PO 02/21/17 09:00 03/23/17 08:59 02/21/17 07:42 1,000 MCG Dicyclomine HCl (Bentyl Tab) 20 mg TID PO 02/20/17 21:00 03/22/17 20:59 02/21/17 13:38 20 MG Fluticasone Propionate (Flonase Nasal [place]) 2 sprays BID PRN LAUREN 02/20/17 18:00 03/22/17 17:59 Ondansetron HCl (Zofran Tab) 4 mg QID PRN PO 02/20/17 18:00 03/22/17 17:59 Pantoprazole Sodium (Protonix Tab) 40 mg QAM PO 02/21/17 09:00 03/23/17 08:59 02/21/17 07:43 40 MG Sucralfate (Carafate Tab) 1 gm BID PO 02/20/17 21:00 03/22/17 20:59 02/21/17 07:43 1 GM Tiotropium [place] (Spiriva Handihaler Inhaler) 1 puff DAILY INH 02/21/17 09:00 03/23/17 08:59 02/21/17 07:40 1 PUFF Tramadol HCl (Ultram Tab) 50 mg Q6H PRN PO 02/20/17 18:00 03/22/17 17:59 [id number] Acetate (Vitamin E Cap) 400 interunit DAILY PO 02/21/17 09:00 03/23/17 08:59 02/21/17 07:42 400 INTERUNIT Buspirone HCl (Buspar Tab) 10 mg TID PO 02/20/17 21:00 03/22/17 20:59 02/21/17 13:38 10 MG Cholecalciferol (Vitamin D Tab) 2,000 inter.unit QAM PO 02/21/17 09:00 03/23/17 08:59 02/21/17 07:42 2,000 INTER.UNIT Labetalol HCl (Normodyne IV) 20 mg Q6HWA PRN IV 02/20/17 18:00 03/22/17 17:59 Lorazepam (Ativan Tab) 0.5 mg Q8H PRN PO 02/20/17 18:00 03/22/17 17:59 02/21/17 10:51 0.5 MG Albuterol/ Ipratropium (Duoneb) 3 ml QIDR INH 02/20/17 20:00 03/22/17 19:59 02/21/17 15:18 3 ML Miscellaneous (Iv Fluids Completed) 1 ea PRN PRN N/A 02/20/17 18:45 02/20/18 18:44 Amlodipine Besylate (Norvasc Tab) 5 mg QAM PO 02/21/17 09:00 03/23/17 08:59 02/21/17 07:44 5 MG Fluoxetine HCl (Prozac Cap) 10 mg QAM PO 02/21/17 09:00 03/23/17 08:59 02/21/17 07:41 10 MG Physical Exam Date Time Temp Pulse Resp B/P Pulse Ox O2 Delivery O2 Flow Rate FiO2 02/21/17 15:20 37.0 86 18 92 Room Air 02/21/17 15:18 86 18 92 Room Air 02/21/17 12:02 37.0 62 21 138/70 98 Nasal Cannula 2.0 02/21/17 12:00 98 Nasal Cannula 2.0 02/21/17 08:24 36.3 61 16 113/57 94 02/21/17 08:00 98 Nasal Cannula 2.0 02/21/17 07:18 63 18 100 Nasal Cannula 2.0 02/21/17 04:00 98 Nasal Cannula 2.0 02/21/17 03:40 36.6 63 20 131/58 99 Nasal Cannula 2.0 02/21/17 00:04 36.9 64 22 138/70 99 Nasal Cannula 2.0 02/20/17 23:59 98 Nasal Cannula 2.0 02/20/17 20:00 98 Nasal Cannula 2.0 02/20/17 19:57 69 18 99 Nasal Cannula 2.0 02/20/17 18:46 68 20 197/88 97 Nasal Cannula 2.0 02/20/17 18:23 99 Nasal Cannula 2.0 02/20/17 17:39 73 20 175/69 99 Nasal Cannula 2.0 02/20/17 16:49 65 20 163/75 99 Nasal Cannula 2.0 02/20/17 15:53 69 18 208/95 94 Room Air General Appearance: no apparent distress, + cachetic, + thin ENT: hearing grossly normal Neck: no JVD Respiratory: + pertinent finding (appears slightly short of breath at rest. Is on 2LNC) Cardiovascular: regular rate, rhythm, no edema Neurologic/Psychiatric: alert, normal mood/affect, oriented x 3 Laboratory Results Last 24 Hours Test 02/21/17 00:00 Urine Color YELLOW Urine Appearance CLEAR Urine pH 6.5 Urine Specific [place] 1.007 Urine Protein NEG Urine Glucose (UA) NEG Urine Ketones TRACE Urine Occult Blood NEG Urine Nitrite NEG Urine Bilirubin NEG Urine Urobilinogen NEG Urine Leukocyte Esterase NEG Urine WBC (Auto) 0 /hpf Urine RBC (Auto) 0-4 /hpf Urine Hyaline Casts (Auto) 0 /lpf Urine Epithelial Cells (Auto) 0-5 /lpf Urine Bacteria (Auto) NEG Assessment & Plan Palliative Performance Scale: 70 % Problem list: Shortness of breath Hypertension COPD Anxiety Depression IBS Goals of care (Z51.5) Palliative care plan: -POLST form completed. See HPI -Patient wants to avoid any invasive procedures. Really does not want to be in the hospital. -I cannot say that she is hospice eligible at this time, but perhaps she could have home nursing with an agency who also offers hospice and she could transition when the time comes. -Copy of POLST and advance directive on chart. Thank you kindly for this consult.
--- NOTE | 2017-02-27 15:25 | DISCHARGE SUMMARY ---
Please see dictated H\T\P for full details of her presentation. HISTORY OF PRESENT ILLNESS: The patient is a 76-year-old with history of COPD, breast cancer, bilateral mastectomy, history of HI, stroke, inflammatory bowel disease, depression and anxiety, remote tobacco abuse history, smoking 1-2 packs per day over a 50 year span, 14 years prior. She presented complaining of elevated blood pressure and shortness of breath. Chest x-ray showed emphysematous changes, no acute infiltrates. She was discovered to have hypertensive urgency with systolic blood pressure of 197. She was started on Coreg 12.5 twice a day and Norvasc 5 mg daily. She was seen in consultation by cardiology, Dr. Wilson. He deemed that she had atypical chest pain, had refused cardiac catheterization in the past and did not feel that her symptoms were consistent with ongoing or active cardiac disease. Dr. Wilson recommended that she continue carvedilol and amlodipine as tolerated for her blood pressure. He recommended considering going back on high intensity statin therapy given her presumed coronary artery disease. He recommended also continuing beta blockade and aspirin therapy. On discharge he recommended routine cardiology follow up, patient follow up with her primary care physician and cardiology followup as needed. She also was seen by the supportive care nurse practitioner, Irina Bolden, who completed a POLST form with the patient. She discovered the patient wants to avoid any invasive procedures and does not want to be in the hospital. She recommended following up with a nursing agency that also offers hospice and home health so that she can transition when the time was appropriate to hospice care. Time spent reviewing the chart and discussion with the patient on the date of discharge was 31 minutes. GRACE
[2017-06-12] MEDS ORDERED: AZIT-57 PO (21:46)
== END 2017-02-21 16:34 ==
LOC: ENRESERVTM → ENRESERVDT → C.EDB 14:26 → C.2E 18:09
PROVIDERS: ADMIT Internal Medicine; ATTEND Internal Medicine
DX: I16.1 Hypertensive emergency (principal); R06.02 Shortness of breath; J44.9 Chronic obstructive pulmonary disease, unspecified; F41.9 Anxiety disorder, unspecified; I25.2 Old myocardial infarction; Z87.891 Personal history of nicotine dependence; Z85.3 Personal history of malignant neoplasm of breast; Z87.01 Personal history of pneumonia (recurrent); Z79.82 Long term (current) use of aspirin; Z79.899 Other long term (current) drug therapy; K58.9 Irritable bowel syndrome, unspecified

== ENCOUNTER 2017-02-22 19:49 | Emergency (ER) | payer OTHER ==
[~2017-02-22] VITALS: Ht 157.5 cm; Wt 35.7 kg
[~2017-02-22 19:49] MED LIST changes: -PANC6000 PO
[2017-02-22 19:53] VITALS: TEMP 36.6; Ht 157.5 cm; Wt 35.7 kg
[2017-02-22] MEDS ORDERED: LABETALOL HCL IV 5 MG/ML 20ML IV STA ×2 (20:26→21:55)
[2017-02-22] MEDS ORDERED: ALBUT/IPRATROP 3MG/0.5MG NEB 3 ML VIAL INH STA (20:29)
[2017-02-22 20:30] VITALS: O2SAT 96
[2017-02-22] MEDS ORDERED: AMLODIPINE BESYLATE 5 MG TAB PO ONE (20:30)
--- NOTE | 2017-02-22 20:51 | DIAGNOSTIC IMAGING REPORT ---
CHEST ONE VIEW PORTABLE HISTORY: Short of breath. COMPARISON: Chest 02/20/2017. FINDINGS: The heart is normal in size. No evidence for pulmonary edema. No new focal lung consolidations to suggest pneumonia. Cholecystectomy. Stable blunting of the costophrenic sulci which may be due to the hyperexpanded lungs. Severe emphysema. IMPRESSION: Severe emphysema. No new focal lung consolidations. Electronically signed by: Myron Gupta M.D. 02/22/2017 8:49 PM Dictated Date/Time: 02/22/2017 8:48 PM
[2017-02-22 20:59] LABS: BLOOD UREA NITROGEN 7 mg/dl (7-18); BUN/CREATININE RATIO 10.5 (10-20); CALCIUM 9.1 mg/dl (8.5-10.1); CARBON DIOXIDE 32 mmol/L (21-32); CHLORIDE 101 mmol/L (98-107); CREATININE 0.68 mg/dl (0.60-1.20); GLUCOSE 99 mg/dl (70-99); POTASSIUM 3.9 mmol/L (3.5-5.1); SODIUM 139 mmol/L (136-145)
[2017-02-22 21:30] LABS: BASO % 0.6 %; BASO ABS # 0.03 K/uL (0-0.2); COMPLETE YES; EOS % 5.6 %; IG% 0.2 %; LYMPH % 27.5 %; LYMPH ABS # 1.33 K/uL (1.2-3.4); MEAN CELL VOLUME 89.7 fL (80-100); MEAN CORPUSCULAR HEMOGLOBIN 29.6 pg (25-34); MEAN CORPUSCULAR HGB CONC 32.9 g/dl (32-36); MEAN PLATELET VOLUME 8.9 fL (7.4-10.4); MONO % 11.4 %; NEUT % 54.7 %; PLATELET COUNT 247 K/uL (130-400); RED BLOOD COUNT 3.79 M/uL (4.2-5.4); WHITE BLOOD COUNT 4.84 K/uL (4.8-10.8)
[2017-02-22 21:38] LABS: PARTIAL THROMBOPLASTIN RATIO 1.1; PROTHROMBIN TIME (PATIENT) 10.5 SECONDS (9.0-12.0)
[2017-02-22 23:10] VITALS: BP 163/103; PULSE 71; O2SAT 99
--- NOTE | 2017-02-23 01:28 | EMERGENCY ROOM VISIT NOTE ---
History Report prepared by Ben: Mamie Ellsworth Under the Supervision of: Dr. Michel Maynard M.D. 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 The patient was admitted to the hospital on 02/20 for hypertension. She was discharged yesterday and states that she was supposed to be discharged with a prescription for Norvasc, but she was never given it. She states that Norvasc is the only thing that effectively lowers her blood pressure. The patient spoke with her PCP who called in a prescription to the [facility]'s pharmacy. The pharmacy claimed that they never received the prescription, so the patient came to the ED for further management. Dr. Collins is now calling her in a prescription for Norvasc. The patient had a headache earlier today which resolved and is currently feeling slightly short of breath. She uses oxygen at night, but is currently on oxygen in the ED and states that it is helping her shortness of breath. She has a history of COPD, so she typically has some shortness of breath. She denies any chest pain. 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 A total of 10 systems reviewed and were otherwise negative. 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 Family History FH: cancer (pancreatic) FH: heart disease FH: lung disease (coal worker's pneumoconiosis) Stroke Social History Smoking Status: Former Smoker Alcohol Use: none Drug Use: none Marital Status: , Housing Status: lives alone Occupation Status: retired Current/Historical Medications Scheduled Aspirin (Aspirin Ec), 81 MG PO DAILY Buspirone Hcl (Buspirone Hcl), 10 MG PO TID Carvedilol (Carvedilol), 12.5 TAB PO BID Cholecalciferol (Vitamin D), 1 TAB PO QAM Clonazepam (Klonopin), 1.5 MG PO HS Cyanocobalamin (Vitamin B-12), 1,000 MCG PO QAM Dicyclomine Hcl (Dicyclomine Hcl), 20 MG PO TID Fluoxetine (Prozac), 10 MG PO QAM Magnesium Oxide (Mg Supplement (Magnesium), 500 MG PO DAILY Pantoprazole Sodium (Protonix), 40 MG PO QAM Probiotic Product (Probiotic), 2 CAP PO DAILY Sucralfate (Sucralfate), 1 GM PO BID Tiotropium [place] (Spiriva Handihaler), 1 CAP INH DAILY Vitamin E (Vitamin E 400 Iu), 400 INTER.UNIT PO DAILY Scheduled PRN Albuterol Sulfate (Proair Respiclick), 1-2 PUFFS INH Q4H PRN for Shortness of Breath Fluticasone Propionate (Nasal) (Flonase Allergy Relief), 2 SPRAYS LAUREN BID PRN for NEEDED Ondansetron Hcl (Zofran), 4 MG PO QID PRN for Nausea Tramadol (Ultram), 50-100 MG PO Q6H PRN for Pain Allergies Coded Allergies: Methylprednisolone (Verified Allergy, Severe, COUGHING, SHORTNESS OF BREATH, 02/20/17) Penicillins (Verified Allergy, Intermediate, RASH/NAUSEA, 02/20/17) Dexamethasone (Verified Allergy, Unknown, UNSURE OF REACTION, 02/20/17) Iodinated Diagnostic Agents (Verified Allergy, Unknown, SHAKY AND FEELS LIKE WILL PASS OUT, 02/20/17) Morphine (Verified Adverse Reaction, Severe, vomitting, 02/20/17) Clindamycin (Verified Adverse Reaction, Mild, GI SYMPTOMS, 02/20/17) STOMACH CRAMPS-FLARE OF IBS Diazepam (Verified Adverse Reaction, Mild, FEELS MANIC WHEN TAKES, 02/20/17 ) Erythromycin (Verified Adverse Reaction, Mild, GI SYMPTOMS, 02/20/17) Oxycodone (Verified Adverse Reaction, Mild, HALLUCINATE, 02/20/17) Tetracyclines (Verified Adverse Reaction, Mild, N/V, 02/20/17) Diphenhydramine (Verified Adverse Reaction, Unknown, HALLUCINATION, ) Lactose Intolerance (Verified Adverse Reaction, Unknown, IBS, 02/20/17) Levofloxacin (Verified Adverse Reaction, Unknown, HAS BLEEDING FROM IV SITE, PO OK, NOT IV, 02/20/17) PT STATED THAT SHE'S OKAY TO TAKE LEVAQUIN ORAL BUT NOT IV Sulfamethoxazole w/Trimethoprim (Verified Adverse Reaction, Unknown, N/V, 02/20/17) Physical Exam Vital Signs Date Time Temp Pulse Resp B/P Pulse Ox O2 Delivery O2 Flow Rate FiO2 02/22/17 23:10 71 20 163/103 99 02/22/17 22:07 64 20 167/100 100 Nasal Cannula 2.0 02/22/17 21:51 66 02/22/17 21:45 73 22 194/117 96 Nasal Cannula 2.0 02/22/17 21:17 80 20 181/102 96 Nasal Cannula 2.0 02/22/17 20:47 62 22 197/110 99 Nebulizer 02/22/17 20:30 96 Nasal Cannula 2.0 02/22/17 20:15 69 22 225/105 97 Nasal Cannula 2.0 02/22/17 19:53 36.6 71 16 231/107 88 Room Air Physical Exam Constitutional: Vital signs reviewed. Eyes: Pupils are equal round reactive to light. Conjunctiva are noninjected. ENT: Pharynx is clear without erythema or exudate. Mucous membranes are moist. Neck supple without meningeal signs. Respiratory: Scattered wheezing bilaterally with fair air entry. Breath sounds are equal bilaterally. Cardiovascular: Regular rate and rhythm. No rubs or gallops. GI: Soft, nondistended and nontender. Bowel sounds are present. Musculoskeletal: No peripheral edema. No lower extremity tenderness. Integumentary: No cyanosis. Neurological: The patient is awake and alert. No focal deficits. Psychiatric: Normal affect. Medical Decision & Procedures ER Provider Diagnostic Interpretation: Radiology results as stated below per my review and the radiologist's interpretation: CHEST ONE VIEW PORTABLE HISTORY: Short of breath. COMPARISON: Chest 02/20/2017. FINDINGS: The heart is normal in size. No evidence for pulmonary edema. No new focal lung consolidations to suggest pneumonia. Cholecystectomy. Stable blunting of the costophrenic sulci which may be due to the hyperexpanded lungs. Severe emphysema. IMPRESSION: Severe emphysema. No new focal lung consolidations. Electronically signed by: Myron Gupta M.D. 02/22/2017 8:49 PM Dictated Date/Time: 02/22/2017 8:48 PM Laboratory Results 02/22/17 21:16 Red Blood Count 3.79, Mean Corpuscular Volume 89.7, Mean Corpuscular Hemoglobin 29.6, Mean Corpuscular Hemoglobin Concent 32.9, Mean Platelet Volume 8.9, Neutrophils (%) (Auto) 54.7, Lymphocytes (%) (Auto) 27.5, Monocytes (%) (Auto) 11.4, Eosinophils (%) (Auto) 5.6, Basophils (%) (Auto) 0.6, Neutrophils # (Auto ) 2.65, Lymphocytes # (Auto) 1.33, Monocytes # (Auto) 0.55, Eosinophils # (Auto ) 0.27, Basophils # (Auto) 0.03 02/22/17 20:15 Test 02/22/17 20:15 02/22/17 21:16 Anion Gap 6.0 mmol/L (3-11) Est Creatinine Clear Calc Drug Dose 40.3 ml/min Estimated GFR () 99.2 Estimated GFR (Non- 85.6 BUN/Creatinine Ratio 10.5 (10-20) Calcium Level 9.1 mg/dl (8.5-10.1) Troponin I < 0.015 ng/ml (0-0.045) Chemistry Specimen Hemolysis White Blood Count 4.84 K/uL (4.8-10.8) Red Blood Count 3.79 M/uL (4.2-5.4) Hemoglobin 11.2 g/dL (12.0-16.0) Hematocrit 34.0 % (37-47) Mean Corpuscular Volume 89.7 fL (80-100) Mean Corpuscular Hemoglobin 29.6 pg (25-34) Mean Corpuscular Hemoglobin Concent 32.9 g/dl (32-36) Platelet Count 247 K/uL (130-400) Mean Platelet Volume 8.9 fL (7.4-10.4) Neutrophils (%) (Auto) 54.7 % Lymphocytes (%) (Auto) 27.5 % Monocytes (%) (Auto) 11.4 % Eosinophils (%) (Auto) 5.6 % Basophils (%) (Auto) 0.6 % Neutrophils # (Auto) 2.65 K/uL (1.4-6.5) Lymphocytes # (Auto) 1.33 K/uL (1.2-3.4) Monocytes # (Auto) 0.55 K/uL (0.11-0.59) Eosinophils # (Auto) 0.27 K/uL (0-0.5) Basophils # (Auto) 0.03 K/uL (0-0.2) RDW Standard Deviation 45.3 fL (36.4-46.3) RDW Coefficient of Variation 13.8 % (11.5-14.5) Immature Granulocyte % (Auto) 0.2 % Immature Granulocyte # (Auto) 0.01 K/uL (0.00-0.02) Prothrombin Time 10.5 SECONDS (9.0-12.0) Prothromb Time International Ratio 1.0 (0.9-1.1) Activated Partial Thromboplast Time 28.6 SECONDS (21.0-31.0) Partial Thromboplastin Ratio 1.1 Laboratory results as reviewed by me. Medications Administered Medications (Trade) Dose Ordered Sig/Ar Route Start Time Stop Time Status Last Admin Dose Admin Amlodipine Besylate (Norvasc Tab) 5 mg NOW ONCE PO 02/22/17 20:30 02/22/17 20:31 DC 02/22/17 20:45 5 MG Labetalol HCl (Normodyne IV) 10 mg NOW STAT IV 02/22/17 20:26 02/22/17 20:29 DC 02/22/17 20:43 10 MG Albuterol/ Ipratropium (Duoneb) 3 ml NOW STAT INH 02/22/17 20:29 02/22/17 20:30 DC 02/22/17 20:46 3 ML Labetalol HCl (Normodyne IV) 10 mg NOW STAT IV 02/22/17 21:55 02/22/17 21:57 DC 02/22/17 22:05 10 MG ECG Indication: SOB/dyspnea Rate (beats per minute): 70 Rhythm: normal sinus Findings: ST depression (Lateral and inferior), no ectopy Comparison ECG Date: 02/20/17 Change: no significant change ED Course 2011: The patient was evaluated in room C1B. A complete history and physical exam was performed. 2025: Labetalol HCl 10 mg IV 2028: DuoNeb 3 ml INH 2029: Norvasc tab 5 mg PO 2136: I reassessed the patient and her blood pressure is 181/102. 2152: The patient's blood pressure has increased. 2154: Labetalol HCl 10 mg IV 2256: I reassessed the patient at this time. Her blood pressure is 164/90. She is asymptomatic and not wheezing. I discussed the results and treatment plan with the patient. I answered all pertaining questions that she had. She expressed understanding and verbalized agreement. The patient will be discharged home. Medical Decision This is a 76-year-old female presents with hypertensive urgency and shortness of breath with wheezing. I did perform a limited focused review of portions of the patient's old chart on the electronic medical record. The patient was admitted to the hospital on February 20 for elevated blood pressure and shortness of breath. She was seen by palliative care. She was made DNR and DNI. She stated that she did not want any invasive procedures or to be in the hospital, but they stated that she was not yet hospice eligible. She was seen by cardiology and they recommended continuing her Labetalol and amlodipine. The cause of her increased blood pressure was unclear to them. I did evaluate the patient as noted above. She is neurologically intact. She is essentially asymptomatic except for some shortness of breath secondary to her COPD. She has some wheezing on examination and was treated with a DuoNeb. IV access was established. The patient was placed on a continuous vehicle monitor technician. I did order and personally review the patient's 12-lead EKG and chest x-ray as described above. I did order and review the patient's blood work as noted in the electronic medical record. Troponin is negative. I did treat the patient with 2 doses of labetalol IV. She was also given Norvasc 5 mg IV. I did reevaluate her. Her blood pressure did come down significantly to 164/90. She has no symptoms at this time and her lungs are clear to auscultation on reevaluation. I did recommend close follow up with her doctor. She will continue Norvasc at home. She was discharged in good condition. Impression Primary Impression: Hypertensive urgency Additional Impression: COPD exacerbation Scribe Attestation The scribe's documentation has been prepared under my direct and personally reviewed by me in its entirety. I confirm that the note above accurately reflects all work, treatment, procedures, and medical decision making performed by me. Departure Information Dispostion Home / Self-Care Referrals Ryan Lucia M.D. (PCP) Forms HOME CARE DOCUMENTATION FORM, IMPORTANT VISIT INFORMATION, WORK / SCHOOL INSTRUCTIONS Patient Instructions COPD - [facility], ED Hypertension Conf Out Of Control, My [facility] Additional Instructions You have been examined and treated today on an emergency basis only. This is not a substitute for, or an effort to provide, complete comprehensive medical care. It is impossible to recognize and treat all injuries or illnesses in a single emergency department visit. It is therefore important that you follow up closely with your physician. Call as soon as possible for an appointment. Return for worsening symptoms or if you develop chest pain, severe headache, numbness or weakness on one side of your body, difficulty with your speech, vomiting, or any other concerning symptoms. Start your Norvasc tomorrow. Problem Qualifiers
[2017-06-12] MEDS ORDERED: AZIT-57 PO (21:46)
== END 2017-02-22 23:10 | disposition home or self-care (01) ==
LOC: C.EDB 19:50 → C.EDC 23:10
DX: J45.909 Unspecified asthma, uncomplicated (principal); I10 Essential (primary) hypertension; I25.2 Old myocardial infarction; F41.9 Anxiety disorder, unspecified; Z85.3 Personal history of malignant neoplasm of breast; Z90.10 Acquired absence of unspecified breast and nipple; Z90.710 Acquired absence of both cervix and uterus; Z79.82 Long term (current) use of aspirin; Z79.899 Other long term (current) drug therapy; Z87.891 Personal history of nicotine dependence; Z88.0 Allergy status to penicillin; Z88.2 Allergy status to sulfonamides; Z88.3 Allergy status to other anti-infective agents; Z88.5 Allergy status to narcotic agent; Z88.8 Allergy status to other drugs, medicaments and biological substances; Z91.011 Allergy to milk products; Z91.09 Other allergy status, other than to drugs and biological substances; Z80.9 Family history of malignant neoplasm, unspecified; Z82.49 Family history of ischemic heart disease and other diseases of the circulatory system; Z82.3 Family history of stroke

== ENCOUNTER → 2017-03-23 | Outpatient (CLI) | payer OTHER ==
[~2017-03-23] MED LIST changes: +AMLO-110 PO; +ATV5X PO; +AZIT-57 PO; +CHOL4POW4 PO; +DOCU-94 PO
== END | disposition home or self-care (01) ==
LOC: C.LAB 13:24
PROVIDERS: ATTEND Physician Assistant
DX: R19.7 Diarrhea, unspecified (principal)

== ENCOUNTER → 2017-04-18 | Outpatient (CLI) | payer OTHER ==
[2017-04-18 15:35] LABS: BASO % 0.3 %; BASO ABS # 0.02 K/uL (0-0.2); COMPLETE YES; EOS % 1.2 %; HEMATOCRIT 36.3 % (37-47); IG% 0.3 %; LYMPH % 34.1 %; LYMPH ABS # 2.58 K/uL (1.2-3.4); MEAN CELL VOLUME 89.2 fL (80-100); MEAN CORPUSCULAR HEMOGLOBIN 28.5 pg (25-34); MEAN PLATELET VOLUME 8.7 fL (7.4-10.4); MONO % 10.7 %; NEUT % 53.4 %; PLATELET COUNT 421 K/uL (130-400); RED BLOOD COUNT 4.07 M/uL (4.2-5.4); WHITE BLOOD COUNT 7.57 K/uL (4.8-10.8)
[2017-04-18 16:20] LABS: FERRITIN 17.5 ng/ml (8.0-388.0)
== END | disposition home or self-care (01) ==
LOC: C.LAB1850 14:23
PROVIDERS: ATTEND Internal Medicine
DX: D64.9 Anemia, unspecified (principal)

== ENCOUNTER → 2017-04-26 | Outpatient (CLI) | payer OTHER ==
--- NOTE | 2017-04-26 13:13 | DIAGNOSTIC IMAGING REPORT ---
CT SCAN OF THE ABDOMEN AND PELVIS WITHOUT CONTRAST CLINICAL HISTORY: Diarrhea, weight loss, diffuse abdominal pain. Interval bowel syndrome. COMPARISON STUDY: 10/05/2013 TECHNIQUE: CT scan of the abdomen and pelvis was performed from the lung bases to the proximal femurs. Images are reviewed in the axial, sagittal, and coronal planes. IV contrast was not administered for this examination. CT DOSE: 186.00 mGycm FINDINGS: Lower chest: There is pulmonary emphysema. There is a small pericardial effusion. Liver: There are multiple hypodense hepatic masses, consistent with cysts. The largest is located within the left lobe measuring 4 cm. There is mild central biliary ductal prominence. Gallbladder: Surgically absent Spleen: Normal in size and attenuation. Pancreas: Unremarkable. Adrenal glands: Unremarkable. Kidneys: No renal calculi are visualized. There is no hydronephrosis. There are multiple hyperdense left renal masses, likely representing hyperdense cysts. The largest measures 16 mm. There is also an indeterminate 9 mm left renal hypodense lesion. Further characterization would necessitate a dedicated renal CT study. Bowel: Evaluation the bowel is quite limited given the paucity of abdominal fat, and the lack of orally and intravenously administered contrast. There are no transition zones indicate bowel obstruction. No acute inflammatory changes are visualized. Peritoneum: There is equivocal trace fluid within the right paracolic gutter. Large volume ascites is not present. There is no free air. Vasculature: The abdominal aorta is normal in course and caliber. Adenopathy: None. Pelvic viscera: The uterus appears surgically absent. Skeletal structures: There are postsurgical changes relating to a left hip pinning IMPRESSION: 1. Significantly limited study secondary to the lack of intra-abdominal fat, and the lack of intravenous and orally administered contrast 2. Multiple hepatic cysts 3. Mild central biliary ductal prominence 4. Left renal lesions statistically representing a combination of cysts and hyperdense cysts. Further characterization would require intravenous contrast 5. No evidence of bowel obstruction. No evidence of free air 6. Emphysema Electronically signed by: Jatinder Cage M.D. 04/26/2017 1:12 PM Dictated Date/Time: 04/26/2017 1:05 PM
== END | disposition home or self-care (01) ==
LOC: C.CTS 12:46
PROVIDERS: ATTEND Internal Medicine
DX: R19.7 Diarrhea, unspecified (principal); R63.4 Abnormal weight loss; R10.9 Unspecified abdominal pain; J43.9 Emphysema, unspecified; K76.89 Other specified diseases of liver

== ENCOUNTER 2017-05-23 17:29 | Emergency (ER) | payer OTHER ==
[~2017-05-23] VITALS: Ht 157.5 cm; Wt 33.8 kg
[~2017-05-23 17:29] MED LIST changes: -AMLO-110 PO; -ATV5X PO; -AZIT-57 PO; -CHOL4POW4 PO; -DOCU-94 PO
[2017-05-23 17:46] VITALS: TEMP 36.4; Ht 157.5 cm; Wt 33.8 kg
[2017-05-23] MEDS ORDERED: LORAZEPAM 1 MG TAB SL STA ×2 (18:12→21:20)
[2017-05-23] MEDS ORDERED: CHOL4POW4 PO (18:34)
[2017-05-23] MEDS ORDERED: AMLO-110 PO (18:34)
[2017-05-23 18:49] LABS: BASO % 0.6 %; BASO ABS # 0.04 K/uL (0-0.2); COMPLETE YES; EOS % 5.2 %; HEMATOCRIT 37.3 % (37-47); IG% 0.2 %; LYMPH % 23.7 %; LYMPH ABS # 1.56 K/uL (1.2-3.4); MEAN CELL VOLUME 90.5 fL (80-100); MEAN CORPUSCULAR HEMOGLOBIN 28.9 pg (25-34); MEAN CORPUSCULAR HGB CONC 31.9 g/dl (32-36); MEAN PLATELET VOLUME 8.5 fL (7.4-10.4); MONO % 8.1 %; NEUT % 62.2 %; PLATELET COUNT 298 K/uL (130-400); RED BLOOD COUNT 4.12 M/uL (4.2-5.4); WHITE BLOOD COUNT 6.57 K/uL (4.8-10.8)
--- NOTE | 2017-05-23 18:56 | DIAGNOSTIC IMAGING REPORT ---
CHEST ONE VIEW PORTABLE CLINICAL HISTORY: EVALUATE ALTERED MENTAL STATUS/WEAKNESS dyspnea COMPARISON STUDY: 02/22/2017 FINDINGS: Emphysematous change. No acute infiltrate. No evidence for cardiac enlargement. Chronic diaphragmatic flattening bilaterally IMPRESSION: Emphysematous change. No acute process. The above report was generated using voice recognition software. It may contain grammatical, syntax or spelling errors. Electronically signed by: Vern Mc M.D. 05/23/2017 6:54 PM Dictated Date/Time: 05/23/2017 6:54 PM
--- NOTE | 2017-05-23 19:05 | EMERGENCY ROOM VISIT NOTE ---
History Report prepared by Ben: Maine Simon Under the Supervision of: Dr. Fredy Zaman M.D. First contact with patient: 18:06 Chief Complaint: HYPERTENSION Stated Complaint: HYPERTENSION History of Present Illness The patient is a 76 year old female who presents to the Emergency Room with complaints of worsening hypertension that started this morning. The patient states that when she measured her blood pressure on her leg this morning it was 155 systolically. Throughout the day the patient's blood pressure continued to get higher. The patient is on Carvedilol for hypertension and states that she took a second dose this afternoon without any relief. She is also experiencing worsening shortness of breath that started this morning. The patient is also experiencing bilateral chest pain that she describes as stabbing. She states that she has been experiencing the pain since this morning as well. Additionally , the patient is experiencing diffuse abdominal pain but she adds that she has not eaten all day because she was worried about her persistently high blood pressure. The patient follows with a skirt trimmer for COPD. The patient states that she saw her skirt trimmer yesterday and had an x-ray done. She got the results of the x-ray today and she states that it said that she had a "nodule" on her lung. She states that secondary to her history of breast cancer she started to get anxious. She states that she "panicked" after seeing the blood pressure this morning. The patient has a history of anxiety. She is prescribed Clonazepam and Ativan at home for anxiety. She states that she took 1 dose of both of those medications today. The patient wears nasal cannula oxygen at night. Source of History: patient Onset: this morning Position: other (global) Quality: other (hypertension) Timing: worsening Associated Symptoms: + chest pain, + SOB, + abdominal pain Review of Systems See HPI for pertinent positives & negatives. A total of 10 systems reviewed and were otherwise negative. 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 Family History FH: cancer (pancreatic) FH: heart disease FH: lung disease (coal worker's pneumoconiosis) Stroke Social History Smoking Status: Former Smoker Alcohol Use: none Drug Use: none Marital Status: , Housing Status: lives alone Occupation Status: retired Current/Historical Medications Scheduled Amlodipine (Norvasc), 1 TAB PO DAILY Aspirin (Aspirin Ec), 81 MG PO DAILY Buspirone Hcl (Buspirone Hcl), 10 MG PO TID Carvedilol (Carvedilol), 12.5 TAB PO BID Cholecalciferol (Vitamin D), 1 TAB PO QAM Cholestyramine (Cholestyramine), 4 GM PO DAILY Clonazepam (Klonopin), 1.5 MG PO HS Cyanocobalamin (Vitamin B-12), 1,000 MCG PO QAM Dicyclomine Hcl (Dicyclomine Hcl), 20 MG PO TID Fluoxetine (Prozac), 10 MG PO QAM Magnesium Oxide (Mg Supplement (Magnesium), 500 MG PO DAILY Pantoprazole Sodium (Protonix), 40 MG PO QAM Probiotic Product (Probiotic), 2 CAP PO DAILY Sucralfate (Sucralfate), 1 GM PO BID Tiotropium Linn (Spiriva Handihaler), 1 CAP INH DAILY Vitamin E (Vitamin E 400 Iu), 400 INTER.UNIT PO DAILY Scheduled PRN Albuterol Sulfate (Proair Respiclick), 1-2 PUFFS INH Q4H PRN for Shortness of Breath Fluticasone Propionate (Nasal) (Flonase Allergy Relief), 2 SPRAYS LAUREN BID PRN for NEEDED Ondansetron Hcl (Zofran), 4 MG PO QID PRN for Nausea Tramadol (Ultram), 50-100 MG PO Q6H PRN for Pain Allergies Coded Allergies: Methylprednisolone (Verified Allergy, Severe, COUGHING, SHORTNESS OF BREATH, 05/23/17) Penicillins (Verified Allergy, Intermediate, RASH/NAUSEA, 05/23/17) Dexamethasone (Verified Allergy, Unknown, UNSURE OF REACTION, 05/23/17) Iodinated Diagnostic Agents (Verified Allergy, Unknown, SHAKY AND FEELS LIKE WILL PASS OUT, 05/23/17) Morphine (Verified Adverse Reaction, Severe, vomitting, 05/23/17) Clindamycin (Verified Adverse Reaction, Mild, GI SYMPTOMS, 05/23/17) STOMACH CRAMPS-FLARE OF IBS Diazepam (Verified Adverse Reaction, Mild, FEELS MANIC WHEN TAKES, 05/23/17 ) Erythromycin (Verified Adverse Reaction, Mild, GI SYMPTOMS, 05/23/17) Oxycodone (Verified Adverse Reaction, Mild, HALLUCINATE, 05/23/17) Tetracyclines (Verified Adverse Reaction, Mild, N/V, 05/23/17) Diphenhydramine (Verified Adverse Reaction, Unknown, HALLUCINATION, ) Lactose Intolerance (Verified Adverse Reaction, Unknown, IBS, 05/23/17) Levofloxacin (Verified Adverse Reaction, Unknown, HAS BLEEDING FROM IV SITE, PO OK, NOT IV, 05/23/17) PT STATED THAT SHE'S OKAY TO TAKE LEVAQUIN ORAL BUT NOT IV Sulfamethoxazole w/Trimethoprim (Verified Adverse Reaction, Unknown, N/V, 05/23/17) Physical Exam Vital Signs Date Time Temp Pulse Resp B/P (MAP) Pulse Ox O2 Delivery O2 Flow Rate FiO2 05/23/17 22:37 78 17 167/93 93 05/23/17 21:15 89 20 156/74 93 Room Air 05/23/17 20:57 82 20 128/74 94 Room Air 05/23/17 20:13 81 18 170/84 95 Nasal Cannula 2.0 05/23/17 19:49 76 18 213/96 96 Nasal Cannula 2.0 05/23/17 19:11 70 05/23/17 18:54 68 17 206/118 Room Air 05/23/17 17:46 36.4 67 18 205/96 89 Room Air Physical Exam GENERAL: Patient is in no acute distress. Patient appears to be anxious. HEENT: No acute trauma, normocephalic atraumatic, mucous membranes moist, no nasal congestion, no scleral icterus. NECK: No stridor, no adenopathy, no meningismus, trachea is midline. LUNGS: Diminished breath sounds bilaterally, no wheezing, breath sounds equal, no respiratory distress. HEART: Without murmurs gallops or rubs, regular rate and rhythm. ABDOMEN: Soft, nontender, bowel sounds positive, no hernias, no peritonitis. EXTREMITIES: No cyanosis or edema, full range of motion of all the joints without pain or difficulty, no signs for acute trauma. NEUROLOGIC: Oriented x 3, no acute motor or sensory deficits, no focal weakness. SKIN: No rash, no jaundice, no diaphoresis. Medical Decision & Procedures ER Provider Diagnostic Interpretation: Radiology results as stated below per my review and radiologist interpretation: CHEST ONE VIEW PORTABLE FINDINGS: Emphysematous change. No acute infiltrate. No evidence for cardiac enlargement. Chronic diaphragmatic flattening bilaterally IMPRESSION: Emphysematous change. No acute process. The above report was generated using voice recognition software. It may contain grammatical, syntax or spelling errors. Electronically signed by: Vern Mc M.D. 05/23/2017 6:54 PM Dictated Date/Time: 05/23/2017 6:54 PM Laboratory Results 05/23/17 18:40 Red Blood Count 4.12, Mean Corpuscular Volume 90.5, Mean Corpuscular Hemoglobin 28.9, Mean Corpuscular Hemoglobin Concent 31.9, Mean Platelet Volume 8.5, Neutrophils (%) (Auto) 62.2, Lymphocytes (%) (Auto) 23.7, Monocytes (%) (Auto) 8.1, Eosinophils (%) (Auto) 5.2, Basophils (%) (Auto) 0.6, Neutrophils # (Auto) 4.09, Lymphocytes # (Auto) 1.56, Monocytes # (Auto) 0.53, Eosinophils # (Auto) 0.34, Basophils # (Auto) 0.04 05/23/17 18:40 Test 05/23/17 18:40 05/23/17 19:45 White Blood Count 6.57 K/uL (4.8-10.8) Red Blood Count 4.12 M/uL (4.2-5.4) Hemoglobin 11.9 g/dL (12.0-16.0) Hematocrit 37.3 % (37-47) Mean Corpuscular Volume 90.5 fL (80-100) Mean Corpuscular Hemoglobin 28.9 pg (25-34) Mean Corpuscular Hemoglobin Concent 31.9 g/dl (32-36) Platelet Count 298 K/uL (130-400) Mean Platelet Volume 8.5 fL (7.4-10.4) Neutrophils (%) (Auto) 62.2 % Lymphocytes (%) (Auto) 23.7 % Monocytes (%) (Auto) 8.1 % Eosinophils (%) (Auto) 5.2 % Basophils (%) (Auto) 0.6 % Neutrophils # (Auto) 4.09 K/uL (1.4-6.5) Lymphocytes # (Auto) 1.56 K/uL (1.2-3.4) Monocytes # (Auto) 0.53 K/uL (0.11-0.59) Eosinophils # (Auto) 0.34 K/uL (0-0.5) Basophils # (Auto) 0.04 K/uL (0-0.2) RDW Standard Deviation 48.2 fL (36.4-46.3) RDW Coefficient of Variation 14.4 % (11.5-14.5) Immature Granulocyte % (Auto) 0.2 % Immature Granulocyte # (Auto) 0.01 K/uL (0.00-0.02) Anion Gap 2.0 mmol/L (3-11) Est Creatinine Clear Calc Drug Dose 46.3 ml/min Estimated GFR () 105.7 Estimated GFR (Non- 91.2 BUN/Creatinine Ratio 10.0 (10-20) Calcium Level 9.2 mg/dl (8.5-10.1) Total Bilirubin 0.3 mg/dl (0.2-1) Aspartate Amino Transf (AST/SGOT) 16 U/L (15-37) Alanine Aminotransferase (ALT/SGPT) 24 U/L (12-78) Alkaline Phosphatase 88 U/L (45-117) Troponin I < 0.015 ng/ml (0-0.045) Total Protein 6.9 gm/dl (6.4-8.2) Albumin 3.8 gm/dl (3.4-5.0) Globulin 3.1 gm/dl (2.5-4.0) Albumin/Globulin Ratio 1.2 (0.9-2) Thyroid Stimulating Hormone (TSH) 1.200 uIu/ml (0.300-4.500) Urine Color YELLOW Urine Appearance CLEAR (CLEAR) Urine pH 8.0 (4.5-7.5) Urine Specific Outlook 1.008 (1.000-1.030) Urine Protein NEG (NEG) Urine Glucose (UA) NEG (NEG) Urine Ketones NEG (NEG) Urine Occult Blood TRACE (NEG) Urine Nitrite NEG (NEG) Urine Bilirubin NEG (NEG) Urine Urobilinogen NEG (NEG) Urine Leukocyte Esterase NEG (NEG) Urine WBC (Auto) 0 /hpf (0-5) Urine RBC (Auto) 0-4 /hpf (0-4) Urine Hyaline Casts (Auto) 0 /lpf (0-5) Urine Epithelial Cells (Auto) 0-5 /lpf (0-5) Urine Bacteria (Auto) NEG (NEG) Laboratory results reviewed by me. Medications Administered Medications (Trade) Dose Ordered Sig/Ar Route Start Time Stop Time Status Last Admin Dose Admin Lorazepam (Ativan Tab) 1 mg NOW STAT SL 05/23/17 18:12 05/23/17 18:18 DC 05/23/17 18:52 1 MG Hydralazine HCl (HydrALAZINE INJ) 10 mg NOW STAT IV 05/23/17 19:22 05/23/17 19:23 DC 05/23/17 19:45 10 MG Lorazepam (Ativan Tab) 1 mg NOW STAT SL 05/23/17 21:20 05/23/17 21:22 DC 05/23/17 21:34 1 MG ECG Indication: chest pain, SOB/dyspnea Rate (beats per minute): 66 Rhythm: normal sinus Findings: no acute ischemic change, no ectopy, other (old septal infarct) Change: Second EKG reveals a normal sinus rhythm, rate of 88, old septal infarct, no acute ischemic changes Third EKG unchanged from the first two ED Course 1811: The patient was evaluated in room C2. A complete history and physical exam was performed. Ordered Ativan Tab 1 mg SL 1921: Ordered Hydralazine HCl 10 mg IV 2057: Reevaluated the patient. Her blood pressure has improved. Discussed results and discharge instructions: she verbalized understanding and agreement. The patient is ready for discharge. 2106: As the nurse was discharging the patient she started to complain of chest pain. The nurse is going to repeat an EKG. 2116: I reassessed the patient. I am going to give her more Ativan and repeat an EKG in 30 minutes. 2119: Ordered Ativan Tab 1 mg SL 2216: The nurse brought me the patient's third EKG and it was unchanged from the first two. 2226: Reevaluated the patient. Discussed results and discharge instructions: she verbalized understanding and agreement. The patient is ready for discharge. Medical Decision Differential diagnoses considered include anxiety, missed medications, renal failure, infection, dehydration, UTI, cardiac ischemia. There is no leukocytosis or concerning anemia. No significant electrolyte abnormality, kidney failure, hepatitis. The patient appears to be in a euthyroid state. Urinalysis does not show infection. EKG shows a sinus rhythm , no acute ischemia, some chronic change was seen. The patient did have 2 subsequent EKG's performed during her stay showing no acute ischemia and no significant change. Cardiac enzyme testing times one is not consistent with acute cardiac injury. Chest film shows no mediastinal widening or pneumonia. COPD was noted. The patient was hypertensive and quite anxious. She was given IV hydralazine and sublingual Ativan. She required a second dose of Ativan sublingual. The patient's blood pressure is markedly improved. She has been reassured by her testing. She had a bout of right-sided chest pain when she changed positions during her ER stay just as she was about to leave. This is why the subsequent EKGs were performed. The patient's chest pain was fleeting and seem to be related to position change. I think the patient's blood pressure elevation is from her history of hypertension coupled with anxiety. She will monitor her blood pressure at home and talk with her doctors office about possible medication changes if required. Medication Reconcilliation Current Medication List: was personally reviewed by me Blood Pressure Screening Patient's blood pressure: Elevated blood pressure Blood pressure disposition: Referred to PCP Impression Primary Impression: Hypertension Additional Impression: Anxiety Scribe Attestation The scribe's documentation has been prepared under my direction and personally reviewed by me in its entirety. I confirm that the note above accurately reflects all work, treatment, procedures, and medical decision making performed by me. Departure Information Dispostion Home / Self-Care Referrals Ryan Lucia M.D. (PCP) Forms HOME CARE DOCUMENTATION FORM, IMPORTANT VISIT INFORMATION, WORK / SCHOOL INSTRUCTIONS Patient Instructions My [facility] [employer] Additional Instructions talk with your doctor tomorrow about your blood pressure keep a watch on your blood pressure at home lab testing today was all ok heart testing was ok return if worsening Problem Qualifiers Primary Impression: Hypertension Hypertension type: unspecified Qualified Codes: I10 - Essential (primary) hypertension
[2017-05-23 19:10] LABS: ALT/SGPT 24 U/L (12-78); BLOOD UREA NITROGEN 6 mg/dl (7-18); CALCIUM 9.2 mg/dl (8.5-10.1); CARBON DIOXIDE 36 mmol/L (21-32); CHLORIDE 105 mmol/L (98-107); CREATININE 0.56 mg/dl (0.60-1.20); GLUCOSE 88 mg/dl (70-99); SODIUM 143 mmol/L (136-145)
[2017-05-23 19:20] LABS: ALB/GLOB RATIO 1.2 (0.9-2); ALKALINE PHOSPHATASE 88 U/L (45-117); AST/SGOT 16 U/L (15-37)
[2017-05-23] MEDS ORDERED: HydrALAZINE HCL 20 MG/ML VIAL IV STA (19:22)
[2017-05-23 20:06] LABS: URINE APPEARANCE CLEAR (CLEAR); URINE BILIRUBIN NEG (NEG); URINE COLOR YELLOW; URINE EPITHELIAL CELL AUTO 0-5 /lpf (0-5); URINE NITRITE NEG (NEG); URINE SPECIFIC GRAVITY 1.008 (1.000-1.030); UROBILINOGEN NEG (NEG); ZZUR CULT IF INDIC CLEAN CATCH NO
[2017-05-23 20:09] LABS: MANUAL MICROSCOPIC REQUIRED? NO; REVIEW REQ? NO
[2017-05-23 22:37] VITALS: BP 167/93; PULSE 78; O2SAT 93
== END 2017-05-23 22:38 | disposition home or self-care (01) ==
LOC: C.EDB 17:31 → C.EDC 22:38
DX: I10 Essential (primary) hypertension (principal); F41.9 Anxiety disorder, unspecified; J44.9 Chronic obstructive pulmonary disease, unspecified; Z85.3 Personal history of malignant neoplasm of breast; Z99.81 Dependence on supplemental oxygen; Z90.710 Acquired absence of both cervix and uterus; Z90.10 Acquired absence of unspecified breast and nipple; I25.2 Old myocardial infarction; Z87.01 Personal history of pneumonia (recurrent); Z80.9 Family history of malignant neoplasm, unspecified; Z82.3 Family history of stroke; Z87.891 Personal history of nicotine dependence; Z79.82 Long term (current) use of aspirin; Z79.899 Other long term (current) drug therapy

== ENCOUNTER 2017-06-12 17:49 | Emergency (ER) | payer OTHER ==
[~2017-06-12] VITALS: Ht 157.5 cm; Wt 33.1 kg
[~2017-06-12 17:49] MED LIST changes: +AMLO-110 PO; +CHOL4POW4 PO
[2017-06-12 17:55] VITALS: TEMP 36.4; Ht 157.5 cm; Wt 33.1 kg
--- NOTE | 2017-06-12 18:22 | EMERGENCY ROOM VISIT NOTE ---
History Report prepared by Ben: Remedios Taveras Under the Supervision of: Dr. Wali Paige M.D. First contact with patient: 18:04 Chief Complaint: HYPERTENSION Stated Complaint: HYPERTENSION, BREATHING PROBLEMS History of Present Illness The patient is a 76 year old female who presents to the Emergency Room with complaints of persistent hypertension that began today prior to arrival. The patient reports that today she took her blood pressure around 1330 and noticed that her blood pressure was elevated. She states that throughout the day she noticed that her blood pressure continued to rise so she decided to come to the emergency department for further treatment and evaluation. She states that five days ago she noticed bilateral ankle swelling. The patient states that she stopped taking her Amlodipine after she began noticing her ankle swelling. She states that she had her PCP placed her on Amlodipine because she has been experiencing elevated blood pressure. The patient states that she has been feeling increasingly short of breath today, but additionally reports that she has a history of COPD. She states that she could have controlled her shortness of breath with her nebulizers, but states that she was worried to use it because she was worried about her elevated blood pressure. The patient denies any history of heart failure. She states that she has had an intermittent nonproductive cough for many years now due to her COPD. The patient states that over the past few days she has been feeling chilled. She states that she has been feeling lightheaded. The patient states that she wears 1 liter of supplemental oxygen at night. She states that she used her Spiriva this morning. The patient denies being on any current steroids, noting that she typically does not do well while on them. She reports pain in her maxillary bones. The patient denies any headache, change in vision, nasal congestion, nausea, vomiting, diarrhea, constipation, or burning with urination. Source of History: patient Onset: prior to arrival Position: other (global) Quality: other (hypertension) Timing: other (persistent) Associated Symptoms: + cough (nonproductive), + SOB, No headache, No nausea , No vomiting, No diarrhea, No urinary symptoms Note: Associated Symptoms: lightheaded, bilateral ankle swelling Review of Systems See HPI for pertinent positives and negatives. A total of ten systems were reviewed and were otherwise negative. 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 Family History FH: cancer (pancreatic) FH: heart disease FH: lung disease (coal worker's pneumoconiosis) Stroke Social History Smoking Status: Former Smoker Alcohol Use: none Drug Use: none Marital Status: , Housing Status: lives alone Occupation Status: retired Current/Historical Medications Scheduled Aspirin (Aspirin Ec), 81 MG PO DAILY Azithromycin (Azithromycin), 1 TAB PO DAILY Buspirone Hcl (Buspirone Hcl), 10 MG PO TID Carvedilol (Carvedilol), 12.5 TAB PO BID Cholecalciferol (Vitamin D), 1 TAB PO QAM Cholestyramine (Cholestyramine), 4 GM PO DAILY Clonazepam (Klonopin), 1.5 MG PO HS Cyanocobalamin (Vitamin B-12), 1,000 MCG PO QAM Dicyclomine Hcl (Dicyclomine Hcl), 20 MG PO TID Fluoxetine (Prozac), 10 MG PO QAM Lorazepam (Lorazepam), 0.5 MG PO BID Magnesium Oxide (Mg Supplement (Magnesium), 500 MG PO DAILY Pantoprazole Sodium (Protonix), 40 MG PO QAM Probiotic Product (Probiotic), 2 CAP PO DAILY Tiotropium Severance (Spiriva Handihaler), 1 CAP INH DAILY Vitamin E (Vitamin E 400 Iu), 400 INTER.UNIT PO DAILY Scheduled PRN Albuterol Sulfate (Proair Respiclick), 1-2 PUFFS INH Q4H PRN for Shortness of Breath Fluticasone Propionate (Nasal) (Flonase Allergy Relief), 2 SPRAYS LAUREN BID PRN for NEEDED Ondansetron Hcl (Zofran), 4 MG PO QID PRN for Nausea Tramadol (Ultram), 50-100 MG PO Q6H PRN for Pain Allergies Coded Allergies: Methylprednisolone (Verified Allergy, Severe, COUGHING, SHORTNESS OF BREATH, 06/12/17) Penicillins (Verified Allergy, Intermediate, RASH/NAUSEA, 06/12/17) Dexamethasone (Verified Allergy, Unknown, UNSURE OF REACTION, 06/12/17) Iodinated Diagnostic Agents (Verified Allergy, Unknown, SHAKY AND FEELS LIKE WILL PASS OUT, 06/12/17) Morphine (Verified Adverse Reaction, Severe, vomitting, 06/12/17) Clindamycin (Verified Adverse Reaction, Mild, GI SYMPTOMS, 06/12/17) STOMACH CRAMPS-FLARE OF IBS Diazepam (Verified Adverse Reaction, Mild, FEELS MANIC WHEN TAKES, 06/12/17) Erythromycin (Verified Adverse Reaction, Mild, GI SYMPTOMS, 06/12/17) Oxycodone (Verified Adverse Reaction, Mild, HALLUCINATE, 06/12/17) Tetracyclines (Verified Adverse Reaction, Mild, N/V, 06/12/17) Diphenhydramine (Verified Adverse Reaction, Unknown, HALLUCINATION, 06/12/17 ) Lactose Intolerance (Verified Adverse Reaction, Unknown, IBS, 06/12/17) Levofloxacin (Verified Adverse Reaction, Unknown, HAS BLEEDING FROM IV SITE, PO OK, NOT IV, 06/12/17) PT STATED THAT SHE'S OKAY TO TAKE LEVAQUIN ORAL BUT NOT IV Sulfamethoxazole w/Trimethoprim (Verified Adverse Reaction, Unknown, N/V, 06/12/17) Physical Exam Vital Signs Date Time Temp Pulse Resp B/P (MAP) Pulse Ox O2 Delivery O2 Flow Rate FiO2 06/12/17 21:37 68 18 150/90 Room Air 06/12/17 21:26 68 18 157/90 95 06/12/17 21:23 93 Room Air 06/12/17 17:55 36.4 66 18 167/109 88 Room Air Physical Exam GENERAL: Awake, alert, cachectic-appearing, in no distress HENT: Normocephalic, atraumatic. Oropharynx unremarkable. EYES: Normal conjunctiva. Sclera non-icteric. NECK: Supple. No nuchal rigidity. FROM. No JVD. RESPIRATORY: Diminished breath sounds throughout with scant audible wheezes throughout. CARDIAC: Regular rate, normal rhythm. Extremities warm and well perfused. Pulses equal. ABDOMEN: Soft, non-distended. No tenderness to palpation. No rebound or guarding. No masses. RECTAL: Deferred. MUSCULOSKELETAL: Chest examination reveals no tenderness. The back is symmetrical on inspection without obvious abnormality. There is no CVA tenderness to palpation. No joint edema. LOWER EXTREMITIES: Calves are equal size bilaterally and non-tender. No edema. No discoloration. Pulses are equal. NEURO: Normal sensorium. No sensory or motor deficits noted. SKIN: No rash or jaundice noted. Medical Decision & Procedures ER Provider Diagnostic Interpretation: X-ray: Per my interpretation, radiologist review. HEST ONE VIEW PORTABLE CLINICAL HISTORY: sob dyspnea COMPARISON STUDY: 05/23/2017 FINDINGS: Emphysematous change. Mild Baseline parenchymal fibrosis. No acute infiltrate. Chronic blunting of the costophrenic angles bilaterally. IMPRESSION: Emphysematous change. No acute process. The above report was generated using voice recognition software. It may contain grammatical, syntax or spelling errors. Electronically signed by: Vern Mc M.D. 06/12/2017 7:11 PM Dictated Date/Time: 06/12/2017 7:10 PM Laboratory Results 06/12/17 18:40 Red Blood Count 3.82, Mean Corpuscular Volume 90.1, Mean Corpuscular Hemoglobin 29.8, Mean Corpuscular Hemoglobin Concent 33.1, Mean Platelet Volume 8.4, Neutrophils (%) (Auto) 51.0, Lymphocytes (%) (Auto) 30.3, Monocytes (%) (Auto) 9.8, Eosinophils (%) (Auto) 8.1, Basophils (%) (Auto) 0.6, Neutrophils # (Auto) 2.39, Lymphocytes # (Auto) 1.42, Monocytes # (Auto) 0.46, Eosinophils # (Auto) 0.38, Basophils # (Auto) 0.03 06/12/17 18:40 Test 06/12/17 18:33 06/12/17 18:40 Venous Blood pH 7.35 (7.36-7.41) Venous Blood Partial Pressure CO2 62 mmHg (38.0-50.0) Venous Blood Partial Pressure O2 24 mmHg Venous Blood HCO3 34 mmol/L Venous Blood Oxygen Saturation < 60.0 % Venous Blood Base Excess 6.5 mEq/L White Blood Count 4.69 K/uL (4.8-10.8) Red Blood Count 3.82 M/uL (4.2-5.4) Hemoglobin 11.4 g/dL (12.0-16.0) Hematocrit 34.4 % (37-47) Mean Corpuscular Volume 90.1 fL (80-100) Mean Corpuscular Hemoglobin 29.8 pg (25-34) Mean Corpuscular Hemoglobin Concent 33.1 g/dl (32-36) Platelet Count 281 K/uL (130-400) Mean Platelet Volume 8.4 fL (7.4-10.4) Neutrophils (%) (Auto) 51.0 % Lymphocytes (%) (Auto) 30.3 % Monocytes (%) (Auto) 9.8 % Eosinophils (%) (Auto) 8.1 % Basophils (%) (Auto) 0.6 % Neutrophils # (Auto) 2.39 K/uL (1.4-6.5) Lymphocytes # (Auto) 1.42 K/uL (1.2-3.4) Monocytes # (Auto) 0.46 K/uL (0.11-0.59) Eosinophils # (Auto) 0.38 K/uL (0-0.5) Basophils # (Auto) 0.03 K/uL (0-0.2) RDW Standard Deviation 47.2 fL (36.4-46.3) RDW Coefficient of Variation 14.2 % (11.5-14.5) Immature Granulocyte % (Auto) 0.2 % Immature Granulocyte # (Auto) 0.01 K/uL (0.00-0.02) Anion Gap 4.0 mmol/L (3-11) Est Creatinine Clear Calc Drug Dose 41.6 ml/min Estimated GFR () 102.8 Estimated GFR (Non- 88.7 BUN/Creatinine Ratio 14.3 (10-20) Calcium Level 8.9 mg/dl (8.5-10.1) Magnesium Level 1.8 mg/dl (1.8-2.4) Troponin I < 0.015 ng/ml (0-0.045) Pro-B-Type Natriuretic Peptide 258 pg/ml (0-900) Laboratory results reviewed by me Medications Administered Medications (Trade) Dose Ordered Sig/Ar Route Start Time Stop Time Status Last Admin Dose Admin Albuterol/ Ipratropium (Duoneb) 3 ml NOW STAT INH 06/12/17 19:20 06/12/17 19:22 DC 06/12/17 19:29 3 ML Albuterol/ Ipratropium (Duoneb) 3 ml NOW STAT INH 06/12/17 19:20 06/12/17 19:22 DC 06/12/17 20:00 3 ML Dexamethasone (Decadron Tab) 10 mg NOW ONCE PO 06/12/17 20:30 06/12/17 20:32 DC 06/12/17 20:41 10 MG Azithromycin (Zithromax Tab) 500 mg NOW ONCE PO 06/12/17 20:30 06/12/17 20:32 DC 06/12/17 20:40 500 MG Carvedilol (Coreg Tab) 18.75 mg NOW ONCE PO 06/12/17 20:30 06/12/17 20:32 DC 06/12/17 20:42 25 MG Famotidine (Pepcid Tab) 20 mg NOW ONCE PO 06/12/17 21:45 06/12/17 21:46 DC 06/12/17 22:13 20 MG Ondansetron HCl (Zofran Odt) 4 mg ONE ONCE PO 06/12/17 22:15 06/12/17 22:16 DC 06/12/17 22:13 4 MG ECG Indication: SOB/dyspnea, other (hypertension) Rate (beats per minute): 64 Rhythm: normal sinus Findings: no acute ischemic change, other (normal axis, normal intervals) ED Course 1805: The patient was evaluated in room A2. A complete history and physical exam was performed. 1919: Ordered DuoNeb 3 ml INH, DuoNeb 3 ml INH. 2127: I reevaluated the patient and she is resting comfortably. I discussed the exam findings with her and I discussed the treatment plan. She verbalized complete understanding and agreement. She is ready to go home shortly. 2029: Ordered Coreg Tab 18.75 mg PO, Zithromax Tab 500 mg PO, Decadron Tab 10 mg PO. 2140: Ordered Zofran Inj 4 mg IV. 2144: Ordered Pepcid tab 20 mg PO. 2214: Ordered Zofran Odt 4 mg PO. Medical Decision I reviewed the patient's past medical history, medications, and the nursing notes as described above. The patient's presentation and history were concerning for COPD exacerbation, bronchitis, pneumonia, new CHF, cardiac arrhythmia, hypertensive urgency, ACS. Patient is a 76 yo woman with pmhx of copd on nocturnal o2 prn presents to emergency department with the concern for elevated blood pressure and upon further questioning reports fatigue/chills x several days and mild sob thought she did not take her inhaler today b/c she was afraid that it would make her BP higher per history of present illness. On arrival to the Emergency Department the patient in no acute distress afebrile with stable vital signs. Reports she feels mildly sob but not too far off from her baseline sob. 02 sat >93% on RA. On exam is diminished throughout with scattered wheezes. Symptoms most likely patient's COPD exacerbation. However we will evaluate for possible CHF, pneumonia. Plan treated symptomatically with nebs and reassess. EKG unremarkable and trop negative in the setting of several days of sx. BNP also wnl. CXR c/w emphysema but otherwise no pna. VBG showing mild co2 retention to 60s but in the setting of patient not taking her inhalers. Patient given duonebs x 2 in ED and reported resolution of her sob. 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 Thus patient' s listed steroid allergies not likely true allergies. Thus I d/w patient option for 5 days of prednisone vs single dose of dexamethasone. Patient preferred dex. Additional given azithro. Findings and plan for follow-up d/w patient. Patient agreeable and d/c'd per discharge instructions. Medication Reconcilliation Current Medication List: was personally reviewed by me (nonproductive) Blood Pressure Screening Patient's blood pressure: Elevated blood pressure Blood pressure disposition: Referred to PCP Impression Primary Impression: COPD exacerbation Scribe Attestation The scribe's documentation has been prepared under my direction and personally reviewed by me in its entirety. I confirm that the note above accurately reflects all work, treatment, procedures, and medical decision making performed by me. Departure Information Dispostion Home / Self-Care Prescriptions Azithromycin (Azithromycin) 250 Mg Tab 1 TAB PO DAILY for 4 Days, #4 TABS Prov: Wali Paige M.D. 06/12/17 Referrals Ryan Lucia M.D. (PCP) Forms HOME CARE DOCUMENTATION FORM, IMPORTANT VISIT INFORMATION, WORK / SCHOOL INSTRUCTIONS Patient Instructions COPD Dc, My [facility] Additional Instructions Please follow up with your primary care physician in the next 1-3 days for reevaluation and to discuss improved blood pressure control. Otherwise, your exam, EKG, chest x-ray, and lab results did not show signs of an emergent condition at this time. Azithromycin as directed. Continuing your inhalers as directed. Return to the emergency department for worsening symptoms as described in the accompanying instructions.
[2017-06-12 18:49] LABS: BASO % 0.6 %; BASO ABS # 0.03 K/uL (0-0.2); COMPLETE YES; EOS % 8.1 %; HEMATOCRIT 34.4 % (37-47); IG% 0.2 %; LYMPH % 30.3 %; LYMPH ABS # 1.42 K/uL (1.2-3.4); MEAN CELL VOLUME 90.1 fL (80-100); MEAN CORPUSCULAR HEMOGLOBIN 29.8 pg (25-34); MEAN CORPUSCULAR HGB CONC 33.1 g/dl (32-36); MEAN PLATELET VOLUME 8.4 fL (7.4-10.4); MONO % 9.8 %; PLATELET COUNT 281 K/uL (130-400); RED BLOOD COUNT 3.82 M/uL (4.2-5.4); WHITE BLOOD COUNT 4.69 K/uL (4.8-10.8)
[2017-06-12 18:50] LABS: VEN BLD GAS O2 SATURATION < 60.0 %; VEN BLOOD GAS BASE EXCESS 6.5 mEq/L; VENOUS BLOOD GAS PCO2 62 mmHg (38.0-50.0); VENOUS BLOOD GAS PO2 24 mmHg
[2017-06-12 19:08] LABS: BLOOD UREA NITROGEN 9 mg/dl (7-18); BUN/CREATININE RATIO 14.3 (10-20); CALCIUM 8.9 mg/dl (8.5-10.1); CARBON DIOXIDE 34 mmol/L (21-32); CHLORIDE 97 mmol/L (98-107); CREATININE 0.61 mg/dl (0.60-1.20); GLUCOSE 80 mg/dl (70-99); MAGNESIUM 1.8 mg/dl (1.8-2.4); POTASSIUM 4.1 mmol/L (3.5-5.1); SODIUM 135 mmol/L (136-145)
--- NOTE | 2017-06-12 19:13 | DIAGNOSTIC IMAGING REPORT ---
CHEST ONE VIEW PORTABLE CLINICAL HISTORY: sob dyspnea COMPARISON STUDY: 05/23/2017 FINDINGS: Emphysematous change. Mild Baseline parenchymal fibrosis. No acute infiltrate. Chronic blunting of the costophrenic angles bilaterally. IMPRESSION: Emphysematous change. No acute process. The above report was generated using voice recognition software. It may contain grammatical, syntax or spelling errors. Electronically signed by: Vern Mc M.D. 06/12/2017 7:11 PM Dictated Date/Time: 06/12/2017 7:10 PM
[2017-06-12] MEDS ORDERED: ALBUT/IPRATROP 3MG/0.5MG NEB 3 ML VIAL INH STA ×2 (19:20)
[2017-06-12] MEDS ORDERED: ATV5X PO (20:14)
[2017-06-12] MEDS ORDERED: AZITHROMYCIN 250 MG TAB PO ONE (20:30)
[2017-06-12] MEDS ORDERED: DEXAMETHASONE 4 MG TAB PO ONE (20:30)
[2017-06-12] MEDS ORDERED: CARVEDILOL 12.5 MG TAB PO ONE (20:30)
[2017-06-12 21:26] VITALS: O2SAT 95
[2017-06-12 21:37] VITALS: BP 150/90; PULSE 68
[2017-06-12] MEDS ORDERED: ONDANSETRON INJ 2 MG/ML 2 ML VIAL IV STA (21:41)
[2017-06-12] MEDS ORDERED: FAMOTIDINE 20 MG TAB PO ONE (21:45)
[2017-06-12] MEDS ORDERED: ZTHM250 PO (21:46)
[2017-06-12] MEDS ORDERED: ONDANSETRON 4MG OD TAB PO ONE (22:15)
== END 2017-06-12 22:25 | disposition home or self-care (01) ==
LOC: C.EDB 17:55 → C.EDA 22:25
DX: J44.1 Chronic obstructive pulmonary disease with (acute) exacerbation (principal); F41.9 Anxiety disorder, unspecified; I10 Essential (primary) hypertension; D05.90 Unspecified type of carcinoma in situ of unspecified breast; I25.2 Old myocardial infarction; Z82.49 Family history of ischemic heart disease and other diseases of the circulatory system; Z82.3 Family history of stroke; Z87.891 Personal history of nicotine dependence; Z79.82 Long term (current) use of aspirin

== ENCOUNTER 2017-08-25 16:32 | Emergency (ER) | payer OTHER ==
[~2017-08-25] VITALS: Ht 157.5 cm; Wt 36.0 kg
[~2017-08-25 16:32] MED LIST changes: -AMLO-110 PO; +ATV5X PO; +AZIT-57 PO; -SUCR1TAB PO
[2017-08-25 16:34] VITALS: TEMP 36.5; Ht 157.5 cm; Wt 36.0 kg
[2017-08-25] MEDS ORDERED: SODIUM CHLORIDE 0.9% 1000ML 1,000 ML IV STA (16:44)
[2017-08-25] MEDS ORDERED: ONDANSETRON INJ 2 MG/ML 2 ML VIAL IV STA (16:44)
[2017-08-25 17:31] LABS: BASO % 0.8 %; BASO ABS # 0.03 K/uL (0-0.2); COMPLETE YES; EOS % 5.8 %; HEMATOCRIT 33.1 % (37-47); LYMPH % 36.8 %; LYMPH ABS # 1.39 K/uL (1.2-3.4); MEAN CELL VOLUME 86.9 fL (80-100); MEAN CORPUSCULAR HEMOGLOBIN 28.3 pg (25-34); MEAN CORPUSCULAR HGB CONC 32.6 g/dl (32-36); MEAN PLATELET VOLUME 8.5 fL (7.4-10.4); MONO % 7.9 %; NEUT % 48.7 %; PLATELET COUNT 245 K/uL (130-400); RED BLOOD COUNT 3.81 M/uL (4.2-5.4); WHITE BLOOD COUNT 3.78 K/uL (4.8-10.8)
[2017-08-25 17:48] LABS: BUN/CREATININE RATIO 11.5 (10-20); CALCIUM 8.4 mg/dl (8.5-10.1); CREATININE 0.72 mg/dl (0.60-1.20); POTASSIUM 4.6 mmol/L (3.5-5.1)
--- NOTE | 2017-08-25 18:43 | DIAGNOSTIC IMAGING REPORT ---
CT SCAN OF THE ABDOMEN AND PELVIS WITHOUT IV CONTRAST CLINICAL HISTORY: Generalized abdominal pain. Constipation. COMPARISON STUDY: Abdominal CT dated 04/26/2017. TECHNIQUE: CT scan of the abdomen and pelvis is performed from the lung bases to the proximal femora. Images are reviewed in the axial, sagittal, and coronal planes. IV contrast was not administered for this examination as per the referring clinician. Note that the examination was performed in suboptimal fashion without oral and IV contrast. A dose lowering technique was utilized adhering to the principles of ALARA. CT DOSE: 212.23 mGy.cm FINDINGS: Lung bases: The heart is normal in size and without pericardial effusion. Advanced emphysematous change is present at the lung bases. The lung bases are otherwise clear. Liver: The unenhanced liver is normal in size, contour, and attenuation. There is [id number] central intrahepatic biliary ductal dilatation, likely related to previous cholecystectomy. There are numerous hepatic cysts measure up to 5 cm. Additional subcentimeter hepatic hypodensities also likely represent cysts but are too small for definitive characterization. Gallbladder: Surgically absent noting clips in the gallbladder fossa. Spleen: Normal in size and attenuation. Pancreas: Unenhanced pancreas is atrophic and grossly unremarkable. Adrenal glands: Unremarkable. Kidneys: The unenhanced kidneys demonstrate cortical atrophy and are without hydronephrosis. There are no renal calculi identified. There are numerous hyperdense lesions identified in the left kidney measuring 1.6 cm. These likely represent complex/hemorrhagic cysts but are incompletely characterized. Abdominal vasculature: The abdominal aorta is normal in course and caliber noting advanced atherosclerotic calcification. Bowel: No bowel obstruction is identified. There is moderate to severe constipation. The appendix is is not visualized. Peritoneum: There is no intraperitoneal free air or abdominal ascites. Lymphadenopathy: None. Pelvic viscera: Evaluation of the pelvis is degraded by metallic streak artifact from left hip hardware. The bladder is normal as visualized. Uterus is not identified and presumed surgically absent. No adnexal lesion is seen. Skeletal structures: The skeletal structures are osteopenic. No lytic or blastic lesions are seen. Chronic posttraumatic deformity and postoperative changes identified in the left femur. Soft tissues: The patient is cachectic. IMPRESSION: 1. The examination is suboptimal without oral and IV contrast. The examination is also significantly degraded by a paucity of intraperitoneal fat. 2. No acute infectious or inflammatory findings are identified. 3. Moderate to severe constipation. No bowel obstruction is seen. 4. Advanced emphysema. 5. Hyperdense left renal lesions are similar to previous and likely represent complex/hemorrhagic cysts. Further characterization would require IV contrast. 6. Additional findings as above. Electronically signed by: Frdey Coffman M.D. 08/25/2017 6:41 PM Dictated Date/Time: 08/25/2017 6:33 PM
[2017-08-25] MEDS ORDERED: DOCU-94 PO (19:00)
[2017-08-25] MEDS ORDERED: MAGNESIUM HYDROXIDE SUSP 30 ML UDC PO ONE (19:00)
[2017-08-25] MEDS ORDERED: DOCUSATE SODIUM 100 MG CAP PO ONE (19:00)
--- NOTE | 2017-08-25 19:00 | EMERGENCY ROOM VISIT NOTE ---
History Report prepared by Ben: Elena Rodríguez Under the Supervision of: Dr. Gal Akhtar D.O. First contact with patient: 16:36 Chief Complaint: CONSTIPATION Stated Complaint: BOWELS, NOT ABLE TO GO Nursing Triage Summary: pt to the ED with c/o constipation for 1 wk with no relief despite trying OTC meds and prunes History of Present Illness The patient is a 76 year old female who presents to the Emergency Room with complaints of constant constipation beginning 1 week ago. The patient states that she she has not had a bowel movement in 1 week. She notes that she has been eating prune juice and prunes and she has also had 2 stool softeners with increased fluid intake that has not relieved her symptoms. She reports that she has been having some abdominal cramping. The patient denies any negative changes in her diet. She notes that she recently moved and has been eating significantly better since. She reports that she has gained 6 pounds. The patient states that she takes a baby aspirin every day. Source of History: patient Onset: 1 week ago Position: other (global) Quality: other (constipation) Timing: constant Modifying Factors (Relieving): other (none) Note: Pt complains of cramping. She denies any negative diet changes. Review of Systems See HPI for pertinent positives & negatives. A total of 10 systems reviewed and were otherwise negative. 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 Family History FH: cancer (pancreatic) FH: heart disease FH: lung disease (coal worker's pneumoconiosis) Stroke Social History Smoking Status: Former Smoker Alcohol Use: none Drug Use: none Marital Status: , Housing Status: lives alone Occupation Status: retired Current/Historical Medications Scheduled Aspirin (Aspirin Ec), 81 MG PO DAILY Buspirone Hcl (Buspirone Hcl), 10 MG PO TID Carvedilol (Carvedilol), 12.5 TAB PO BID Cholecalciferol (Vitamin D), 1 TAB PO QAM Clonazepam (Klonopin), 1.5 MG PO HS Cyanocobalamin (Vitamin B-12), 1,000 MCG PO QAM Dicyclomine Hcl (Dicyclomine Hcl), 20 MG PO TID Docusate Sodium (Colace), 1 CAP PO BID Fluoxetine (Prozac), 10 MG PO QAM Lorazepam (Lorazepam), 0.5 MG PO BID Magnesium Oxide (Mg Supplement (Magnesium), 500 MG PO DAILY Pantoprazole Sodium (Protonix), 40 MG PO QAM Probiotic Product (Probiotic), 2 CAP PO DAILY Tiotropium [place] (Spiriva Handihaler), 1 CAP INH DAILY Vitamin E (Vitamin E 400 Iu), 400 INTER.UNIT PO DAILY Scheduled PRN Albuterol Sulfate (Proair Respiclick), 1-2 PUFFS INH Q4H PRN for Shortness of Breath Fluticasone Propionate (Nasal) (Flonase Allergy Relief), 2 SPRAYS LAUREN BID PRN for NEEDED Ondansetron Hcl (Zofran), 4 MG PO QID PRN for Nausea Tramadol (Ultram), 50-100 MG PO Q6H PRN for Pain Allergies Coded Allergies: Methylprednisolone (Verified Allergy, Severe, COUGHING, SHORTNESS OF BREATH, 08/25/17) Penicillins (Verified Allergy, Intermediate, RASH/NAUSEA, 08/25/17) Dexamethasone (Verified Allergy, Unknown, UNSURE OF REACTION, 08/25/17) Iodinated Diagnostic Agents (Verified Allergy, Unknown, SHAKY AND FEELS LIKE WILL PASS OUT, 08/25/17) Morphine (Verified Adverse Reaction, Severe, vomitting, 08/25/17) Clindamycin (Verified Adverse Reaction, Mild, GI SYMPTOMS, 08/25/17) STOMACH CRAMPS-FLARE OF IBS Diazepam (Verified Adverse Reaction, Mild, FEELS MANIC WHEN TAKES, ) Erythromycin (Verified Adverse Reaction, Mild, GI SYMPTOMS, 08/25/17) Oxycodone (Verified Adverse Reaction, Mild, HALLUCINATE, 08/25/17) Tetracyclines (Verified Adverse Reaction, Mild, N/V, 08/25/17) Diphenhydramine (Verified Adverse Reaction, Unknown, HALLUCINATION, ) Lactose Intolerance (Verified Adverse Reaction, Unknown, IBS, 08/25/17) Levofloxacin (Verified Adverse Reaction, Unknown, HAS BLEEDING FROM IV SITE, PO OK, NOT IV, 08/25/17) PT STATED THAT SHE'S OKAY TO TAKE LEVAQUIN ORAL BUT NOT IV Sulfamethoxazole w/Trimethoprim (Verified Adverse Reaction, Unknown, N/V, 08/25/17) Physical Exam Vital Signs Date Time Temp Pulse Resp B/P (MAP) Pulse Ox O2 Delivery O2 Flow Rate FiO2 08/25/17 17:50 58 18 185/85 93 Room Air 08/25/17 16:34 36.5 62 18 189/84 94 Room Air Physical Exam CONSTITUTIONAL/VITAL SIGNS: Reviewed / noted above. GENERAL: Non-toxic in appearance. INTEGUMENTARY: Warm, dry, and [place]. HEAD: Normocephalic. EYES: without scleral icterus or trauma. ENT/OROPHARYNX: clear and moist. LYMPHADENOPATHY/NECK: Is supple without lymphadenopathy or meningismus. RESPIRATORY: Lungs clear and equal. CARDIOVASCULAR: Regular rate and rhythm. GI/ABDOMEN: Soft and nontender. No organomegaly or pulsatile mass. No rebound or guarding. Normal bowel sounds. EXTREMITIES: Warm and well perfused. BACK: No CVA tenderness. NEUROLOGICAL: Intact without focal deficits. PSYCHIATRIC: normal affect. MUSCULOSKELETAL: Normally developed with good muscle tone. RECTAL: No stool in the rectal vault. Medical Decision & Procedures ER Provider Diagnostic Interpretation: CT results as stated below per my review and radiologist interpretation: CT SCAN OF THE ABDOMEN AND PELVIS WITHOUT IV CONTRAST FINDINGS: Lung bases: The heart is normal in size and without pericardial effusion. Advanced emphysematous change is present at the lung bases. The lung bases are otherwise clear. Liver: The unenhanced liver is normal in size, contour, and attenuation. There is [id number] central intrahepatic biliary ductal dilatation, likely related to previous cholecystectomy. There are numerous hepatic cysts measure up to 5 cm. Additional subcentimeter hepatic hypodensities also likely represent cysts but are too small for definitive characterization. Gallbladder: Surgically absent noting clips in the gallbladder fossa. Spleen: Normal in size and attenuation. Pancreas: Unenhanced pancreas is atrophic and grossly unremarkable. Adrenal glands: Unremarkable. Kidneys: The unenhanced kidneys demonstrate cortical atrophy and are without hydronephrosis. There are no renal calculi identified. There are numerous hyperdense lesions identified in the left kidney measuring 1.6 cm. These likely represent complex/hemorrhagic cysts but are incompletely characterized. Abdominal vasculature: The abdominal aorta is normal in course and caliber noting advanced atherosclerotic calcification. Bowel: No bowel obstruction is identified. There is moderate to severe constipation. The appendix is is not visualized. Peritoneum: There is no intraperitoneal free air or abdominal ascites. Lymphadenopathy: None. Pelvic viscera: Evaluation of the pelvis is degraded by metallic streak artifact from left hip hardware. The bladder is normal as visualized. Uterus is not identified and presumed surgically absent. No adnexal lesion is seen. Skeletal structures: The skeletal structures are osteopenic. No lytic or blastic lesions are seen. Chronic posttraumatic deformity and postoperative changes identified in the left femur. Soft tissues: The patient is cachectic. IMPRESSION: 1. The examination is suboptimal without oral and IV contrast. The examination is also significantly degraded by a paucity of intraperitoneal fat. 2. No acute infectious or inflammatory findings are identified. 3. Moderate to severe constipation. No bowel obstruction is seen. 4. Advanced emphysema. 5. Hyperdense left renal lesions are similar to previous and likely represent complex/hemorrhagic cysts. Further characterization would require IV contrast. 6. Additional findings as above. Electronically signed by: Fredy Coffman M.D. 08/25/2017 6:41 PM Dictated Date/Time: 08/25/2017 6:33 PM Laboratory Results 08/25/17 17:17 Red Blood Count 3.81, Mean Corpuscular Volume 86.9, Mean Corpuscular Hemoglobin 28.3, Mean Corpuscular Hemoglobin Concent 32.6, Mean Platelet Volume 8.5, Neutrophils (%) (Auto) 48.7, Lymphocytes (%) (Auto) 36.8, Monocytes (%) (Auto) 7.9, Eosinophils (%) (Auto) 5.8, Basophils (%) (Auto) 0.8, Neutrophils # (Auto) 1.84, Lymphocytes # (Auto) 1.39, Monocytes # (Auto) 0.30, Eosinophils # (Auto) 0.22, Basophils # (Auto) 0.03 08/25/17 17:17 Test 08/25/17 17:17 White Blood Count 3.78 K/uL (4.8-10.8) Red Blood Count 3.81 M/uL (4.2-5.4) Hemoglobin 10.8 g/dL (12.0-16.0) Hematocrit 33.1 % (37-47) Mean Corpuscular Volume 86.9 fL (80-100) Mean Corpuscular Hemoglobin 28.3 pg (25-34) Mean Corpuscular Hemoglobin Concent 32.6 g/dl (32-36) Platelet Count 245 K/uL (130-400) Mean Platelet Volume 8.5 fL (7.4-10.4) Neutrophils (%) (Auto) 48.7 % Lymphocytes (%) (Auto) 36.8 % Monocytes (%) (Auto) 7.9 % Eosinophils (%) (Auto) 5.8 % Basophils (%) (Auto) 0.8 % Neutrophils # (Auto) 1.84 K/uL (1.4-6.5) Lymphocytes # (Auto) 1.39 K/uL (1.2-3.4) Monocytes # (Auto) 0.30 K/uL (0.11-0.59) Eosinophils # (Auto) 0.22 K/uL (0-0.5) Basophils # (Auto) 0.03 K/uL (0-0.2) RDW Standard Deviation 44.4 fL (36.4-46.3) RDW Coefficient of Variation 14.0 % (11.5-14.5) Immature Granulocyte % (Auto) 0.0 % Immature Granulocyte # (Auto) 0.00 K/uL (0.00-0.02) Anion Gap 5.0 mmol/L (3-11) Est Creatinine Clear Calc Drug Dose 38.4 ml/min Estimated GFR () 94.9 Estimated GFR (Non- 81.9 BUN/Creatinine Ratio 11.5 (10-20) Calcium Level 8.4 mg/dl (8.5-10.1) Total Bilirubin 0.4 mg/dl (0.2-1) Direct Bilirubin 0.1 mg/dl (0-0.2) Aspartate Amino Transf (AST/SGOT) 17 U/L (15-37) Alanine Aminotransferase (ALT/SGPT) 18 U/L (12-78) Alkaline Phosphatase 84 U/L (45-117) Total Protein 6.5 gm/dl (6.4-8.2) Albumin 3.7 gm/dl (3.4-5.0) Lipase 104 U/L (73-393) Laboratory results as stated above per my review. Medications Administered Medications (Trade) Dose Ordered Sig/Ar Route Start Time Stop Time Status Last Admin Dose Admin Sodium Chloride 1,000 ml @ 999 mls/hr Q1H1M STAT IV 08/25/17 16:44 08/25/17 17:44 DC 08/25/17 17:49 999 MLS/HR Ondansetron HCl (Zofran Inj) 4 mg NOW STAT IV 08/25/17 16:44 08/25/17 16:47 DC 08/25/17 17:49 4 MG ED Course 1636: Previous medical records were reviewed. The patient was evaluated in room C8. A complete history and physical examination was performed. 1644: Zofran Inj 4mg IV, Sodium Chloride 1000 ml @ 999 mls/hr IV. 190: Milk of Magnesia Susp 30ml PO, Colace Cap 100mg PO. 1901: On reevaluation, the patient is doing well. I discussed the results and findings with the patient. She verbalized agreement of the treatment plan. The patient was discharged home. Medical Decision Differential considered: pancreatitis, hepatitis, or acute cholecystitis, AAA, UTI, pyelonephritis, kidney stones, appendicitis, diverticulitis, shingles, bowel obstruction mesenteric ischemia, intussusception,hernia, testicular torsion, ovarian torsion, ruptured ovarian cyst,ectopic , . This is a 76-year-old female who presents to the ED with a chief complaint of constipation and some lower abdominal cramps. The patient does report a history of IBS in addition to some other chronic medical problems. The patient has had the symptoms for about one week. She states that she has not had a bowel movement in that time.. She does report change in diet since she has moved to a new nursing facility that provides more fruits and vegetables. The patient has no other specific complaints. She denies any nausea, vomiting or diarrhea. No fevers. No back pain or flank pain. Her physical exam revealed some mild lower abdominal tenderness. Exam is otherwise unremarkable. She is in no distress. She is comfortable. Her initial vital signs reveal hypertension. White blood cell count was 3.78 and hemoglobin is 10.8. This is close to her baseline from her recent ED visit. The patient's chemistry panel reveals sodium is 129. Otherwise unremarkable. Lipase was negative. A CT scan of the abdomen and pelvis was done without IV contrast due to allergies. There is no acute infectious or inflammatory process. She does have moderate to severe constipation. Nothing was close to the rectal area on digital exam. The patient was given: Colace and milk of magnesia by mouth. She was told the results of the test. She was discharged on Colace. She is felt to be stable for discharge and outpatient follow-up. Medication Reconcilliation Current Medication List: was personally reviewed by me Blood Pressure Screening Patient's blood pressure: Elevated blood pressure Blood pressure disposition: Referred to PCP Impression Primary Impression: Constipation Additional Impression: Abdominal pain Scribe Attestation The scribe's documentation has been prepared under my direction and personally reviewed by me in its entirety. I confirm that the note above accurately reflects all work, treatment, procedures, and medical decision making performed by me. Departure Information Dispostion Home / Self-Care Prescriptions Docusate Sodium (COLACE) 100 Mg Cap 1 CAP PO BID for 15 Days, #30 CAP Prov: Gal Akhtar D.O. 08/25/17 Referrals Pro,Ryan Brower M.D. (PCP) Patient Instructions Constipation, My [facility] Additional Instructions Colace as prescribed for constipation. Follow-up with your doctor for further care and evaluation in 1-2 days. Return to the emergency department for worsening or new symptoms or any concerns. You have been examined and treated today on an emergency basis only. This is not a substitute for, or an effort to provide, complete comprehensive medical care. It is impossible to recognize and treat all injuries or illnesses in a single emergency department visit. It is therefore important that you follow up closely with your doctor. Call as soon as possible for an appointment. Problem Qualifiers
[2017-08-25 20:00] VITALS: BP 159/80; PULSE 60; O2SAT 95
== END 2017-08-25 20:00 | disposition home or self-care (01) ==
LOC: C.EDB 16:33 → C.EDC 20:00
DX: K59.00 Constipation, unspecified (principal); R10.9 Unspecified abdominal pain; I10 Essential (primary) hypertension; J44.9 Chronic obstructive pulmonary disease, unspecified; F41.9 Anxiety disorder, unspecified; I25.2 Old myocardial infarction; Z85.3 Personal history of malignant neoplasm of breast; Z90.10 Acquired absence of unspecified breast and nipple; Z90.710 Acquired absence of both cervix and uterus; Z87.891 Personal history of nicotine dependence; Z79.82 Long term (current) use of aspirin; Z79.899 Other long term (current) drug therapy; Z88.0 Allergy status to penicillin; Z88.2 Allergy status to sulfonamides; Z88.5 Allergy status to narcotic agent; Z88.8 Allergy status to other drugs, medicaments and biological substances; Z80.9 Family history of malignant neoplasm, unspecified; Z82.49 Family history of ischemic heart disease and other diseases of the circulatory system; Z82.3 Family history of stroke

== ENCOUNTER → 2017-09-13 | Outpatient (CLI) | payer OTHER ==
[~2017-09-13] MED LIST changes: -AZIT-57 PO; -CHOL4POW4 PO
--- NOTE | 2017-09-13 14:58 | DIAGNOSTIC IMAGING REPORT ---
CHEST 2 VIEWS ROUTINE HISTORY: 76 years-old Female J44.9 Chronic obstructive pulmonary disease COMPARISON: Chest radiograph 06/12/2017, 01/26/2017 TECHNIQUE: PA and lateral views of the chest FINDINGS: Lungs are hyperinflated with emphysematous changes redemonstrated. Chronic blunting of the costophrenic angles suggests scarring with atelectasis. There is no pneumothorax, large pleural effusion or focal airspace consolidation. Areas of chronic interstitial coarsening are redemonstrated. There are calcifications of the tracheobronchial tree. Atherosclerosis of the aorta. Bones are grossly intact. IMPRESSION: Emphysema without acute cardiopulmonary process. The above report was generated using voice recognition software. It may contain grammatical, syntax or spelling errors. Electronically signed by: Ray Gaitan M.D. 09/13/2017 2:56 PM Dictated Date/Time: 09/13/2017 2:50 PM
== END | disposition home or self-care (01) ==
LOC: C.RAD 14:29
PROVIDERS: ATTEND Internal Medicine
DX: J44.9 Chronic obstructive pulmonary disease, unspecified (principal)